=== PATIENT | female | born 1960 | race Caucasian/White ===

== ENCOUNTER → 2019-10-07 10:41 | Outpatient (BNVA) | payer MEDICARE, MEDICAID, SELFPAY | PROVIDERS: Family Provider Family Medicine; PCP Family Medicine; Visit Provider Family Medicine | DX: K21.9 Gastro-esophageal reflux disease without esophagitis (principal); L01.00 Impetigo, unspecified; L40.9 Psoriasis, unspecified; Z79.899 Other long term (current) drug therapy | CPT/HCPCS: 80053; 85025 ==

== ENCOUNTER → 2020-06-08 12:33 | Outpatient (BNVA) | payer MEDICARE, MEDICAID, SELFPAY | PROVIDERS: Family Provider Family Medicine; PCP Family Medicine; Visit Provider Nurse Practitioner Family | DX: J02.9 Acute pharyngitis, unspecified (principal); J98.8 Other specified respiratory disorders; B97.89 Other viral agents as the cause of diseases classified elsewhere; H65.193 Other acute nonsuppurative otitis media, bilateral; Z68.35 Body mass index [BMI] 35.0-35.9, adult; F17.210 Nicotine dependence, cigarettes, uncomplicated | CPT/HCPCS: 87071; 87880 ==

== ENCOUNTER → 2020-11-06 09:48 | Outpatient (BNVA) | payer MEDICARE, MEDICAID, SELFPAY | PROVIDERS: Family Provider Family Medicine; PCP Family Medicine; Visit Provider Family Medicine | DX: S76.912A Strain of unspecified muscles, fascia and tendons at thigh level, left thigh, initial encounter (principal); L40.9 Psoriasis, unspecified; X58.XXXA Exposure to other specified factors, initial encounter | CPT/HCPCS: 80053; 85025 ==

== ENCOUNTER → 2021-09-26 14:31 | Outpatient (BNVA) | payer MEDICARE, MEDICAID, SELFPAY | PROVIDERS: Family Provider Family Medicine; PCP Family Medicine; Visit Provider Emergency Medicine | DX: S80.01XA Contusion of right knee, initial encounter (principal); M25.569 Pain in unspecified knee; L03.115 Cellulitis of right lower limb; X58.XXXA Exposure to other specified factors, initial encounter | CPT/HCPCS: 73562 ==

== ENCOUNTER 2022-04-29 15:19 | Outpatient (CLI) | payer MEDICARE, MEDICAID, SELFPAY ==
--- NOTE | 2022-04-29 15:57 | XR_ITS ---
WS: [id number] Exam: XR chest 2V insp/exp [id number] Date/Time of Exam: 04/29/2022 3:57 PM Reason For Exam: worsening sob Comparison 09/06/2015. There is been significant interval cardiac enlargement since prior study. There is pulmonary vascular congestion suggesting CHF. There are diffuse groundglass infiltrates in the mid and lower lung zones . XR/XR chest 2V insp/exp [id number] IMPRESSION: 1. Significant interval cardiac enlargement since prior study. Pulmonary vascul ar congestion suggesting CHF. 2. Diffuse groundglass infiltrates noted bilaterally. Superimposed pneumonia no t completely excluded.
== END 2022-04-29 15:20 | disposition home or self-care (01) ==
PROVIDERS: PCP Family Medicine; Visit Provider Family Medicine
DX: J44.9 Chronic obstructive pulmonary disease, unspecified (principal); J11.1 Influenza due to unidentified influenza virus with other respiratory manifestations; R68.89 Other general symptoms and signs; I51.7 Cardiomegaly
CPT/HCPCS: 71046; 87400; 87426

== ENCOUNTER → 2022-05-20 09:52 | Outpatient (BNVA) | payer MEDICARE, MEDICAID, SELFPAY | PROVIDERS: PCP Family Medicine; Visit Provider Family Medicine | DX: F32.9 Major depressive disorder, single episode, unspecified (principal); E03.9 Hypothyroidism, unspecified; I87.2 Venous insufficiency (chronic) (peripheral); J44.9 Chronic obstructive pulmonary disease, unspecified | CPT/HCPCS: 80053; 84443; 85025 ==

== ENCOUNTER → 2022-05-21 12:01 | Outpatient (BNVA) | payer MEDICARE, MEDICAID, SELFPAY | PROVIDERS: PCP Family Medicine; Visit Provider Family Medicine | DX: R73.9 Hyperglycemia, unspecified (principal) | CPT/HCPCS: 83036 ==

== ENCOUNTER → 2022-07-30 14:21 | Outpatient (BNVA) | payer MEDICARE, MEDICAID, SELFPAY | PROVIDERS: PCP Family Medicine; Visit Provider Dermatology | DX: L23.9 Allergic contact dermatitis, unspecified cause (principal); L40.0 Psoriasis vulgaris | CPT/HCPCS: 99204 ==

== ENCOUNTER 2022-07-30 15:41 | Outpatient (CLI) | payer MEDICARE, MEDICAID, SELFPAY ==
[2022-07-30 17:08] LABS: Alanine Aminotransferase 28 U/L (0-33); Albumin Level 4.2 g/dL (3.5-5.2); Alkaline Phosphatase 159 U/L (35-105); Anion Gap 16.3 (5-19); Aspartate Amino Transferase 29 U/L (0-32); Blood Urea Nitrogen 28 mg/dL (8-23); Calcium 9.2 mg/dL (8.5-10.5); Carbon Dioxide 31 mmol/L (22-29); Chloride 91 mmol/L (98-107); Globulin 2.7 g/dL (1.3-4.6); Glucose 127 mg/dL (65-115); Osmolality Calculated 289 mOsm/kg (285-295); Sodium 136 mmol/L (136-145); Total Bilirubin 0.3 mg/dL (0.15-1.2); Total Protein 6.9 g/dL (6.6-8.7)
[2022-07-30 17:19] LABS: Hepatitis A Antibody IgM Non-Reactive (Nonreactive); Hepatitis B Core IgM Non-Reactive (Nonreactive); Hepatitis B Surface Antigen Non-Reactive (Nonreactive); Hepatitis C Virus Antibody Non-Reactive (Nonreactive)
[2022-07-30 21:21] LABS: HIV 1 & 2 Antibody Non-Reactive (Non-Reactiv); HIV 1 & 2 Antigen Non-Reactive (Non-Reactiv)
[2022-07-31 11:38] LABS: Potassium 2.3 mmol/L (3.5-5.1)
[2022-08-01 14:41] LABS: Quantiferon Mitogen 9.54 IU/mL; Quantiferon Nil 0.02 IU/mL; Quantiferon Plus TB1 0.02 IU/mL; Quantiferon Plus TB2 0.01 IU/mL; Quantiferon TB Gold NEGATIVE (NEGATIVE)
== END 2022-07-30 15:42 | disposition home or self-care (01) ==
LOC: LAB 15:46
PROVIDERS: PCP Family Medicine; Visit Provider Dermatology
DX: L40.0 Psoriasis vulgaris (principal)
CPT/HCPCS: 36415; 80053; 80074; 86480; 87806

== ENCOUNTER → 2022-08-06 13:50 | Outpatient (BNVA) | payer MEDICARE, MEDICAID, SELFPAY | PROVIDERS: PCP Family Medicine; Visit Provider Dermatology | DX: L40.0 Psoriasis vulgaris (principal); L24.9 Irritant contact dermatitis, unspecified cause | CPT/HCPCS: 99214 ==

== ENCOUNTER → 2022-08-15 15:56 | Outpatient (BNVA) | payer MEDICARE, MEDICAID, SELFPAY | PROVIDERS: PCP Family Medicine; Visit Provider Family Medicine | DX: E87.6 Hypokalemia (principal) | CPT/HCPCS: 80053 ==

== ENCOUNTER → 2022-08-20 15:06 | Outpatient (BNVA) | payer MEDICARE, MEDICAID, SELFPAY | PROVIDERS: PCP Family Medicine; Visit Provider Dermatology | DX: L40.0 Psoriasis vulgaris (principal); L23.89 Allergic contact dermatitis due to other agents | CPT/HCPCS: 99214 ==

== ENCOUNTER → 2023-02-20 10:31 | Outpatient (BNVA) | payer MEDICARE, MEDICAID, SELFPAY | PROVIDERS: PCP Family Medicine; Visit Provider Family Medicine | DX: J44.9 Chronic obstructive pulmonary disease, unspecified (principal); I87.2 Venous insufficiency (chronic) (peripheral); I50.810 Right heart failure, unspecified | CPT/HCPCS: 80053; 85025 ==

== ENCOUNTER → 2023-03-27 09:55 | Outpatient (BNVA) | payer MEDICARE, MEDICAID, SELFPAY | PROVIDERS: PCP Family Medicine; Visit Provider Nurse Practitioner Family | DX: L40.0 Psoriasis vulgaris (principal); L59.0 Erythema ab igne [dermatitis ab igne]; L29.8 Other pruritus | CPT/HCPCS: 99214 ==

== ENCOUNTER → 2023-07-29 12:39 | Outpatient (BNVA) | payer MEDICARE, MEDICAID, SELFPAY | PROVIDERS: PCP Family Medicine; Visit Provider Family Medicine | DX: J41.0 Simple chronic bronchitis (principal); J37.0 Chronic laryngitis | CPT/HCPCS: 80053; 85025 ==

== ENCOUNTER 2023-11-27 15:08 | Outpatient (CLI) | payer MEDICARE, MEDICAID, SELFPAY ==
[2023-11-27 16:37] LABS: Hepatitis A Antibody IgM Non-Reactive (Nonreactive); Hepatitis B Core AB, Total Non-Reactive (Nonreactive); Hepatitis B Surface AB < 3.5 (11.5-1000); Hepatitis B Surface Antigen Non-Reactive (Nonreactive); Hepatitis C Virus Antibody Non-Reactive (Nonreactive)
== END 2023-11-27 15:09 | disposition home or self-care (01) ==
LOC: RAD 15:11
PROVIDERS: PCP Family Medicine; Visit Provider Dermatology
DX: Z79.899 Other long term (current) drug therapy (principal); L40.0 Psoriasis vulgaris
CPT/HCPCS: 36415; 86480; 86705; 86706; 86709; 86803; 87340

== ENCOUNTER 2024-02-23 12:03 | Outpatient (CLI) | payer MEDICARE, MEDICAID, SELFPAY ==
--- NOTE | 2024-02-23 12:06 | XR_ITS ---
WS: [id number] Exam: XR chest 2V* [id number] Date/Time of Exam: 02/23/2024 12:26 PM Reason For Exam: continued dyspnea 4 weeks Comparison 04/29/2022. Slight cardiac enlargement with increased pulmonary vascularity. No infiltrates or pleural effusions. The mediastinum and bony thorax are unremarkable. XR/XR chest 2V* [id number] IMPRESSION: 1. Slight cardiac enlargement with increased pulmonary vascularity. No acute pr ocess noted.
== END 2024-02-23 12:04 | disposition home or self-care (01) ==
LOC: RAD 12:05
PROVIDERS: PCP Family Medicine; Visit Provider Family Medicine
DX: J41.0 Simple chronic bronchitis (principal); I50.810 Right heart failure, unspecified
CPT/HCPCS: 71046; 80048; 83880; 85025

== ENCOUNTER 2024-03-03 12:45 | Outpatient (CLI) | payer MEDICARE, MEDICAID, SELFPAY ==
--- NOTE | 2024-03-03 12:45 | USCV_ITS ---
Ana Alonso Age: 63 Gender: F : 1960 Exam Date: 03/03/2024 12:59 Ordering Phys: Justin Fajardo MD Technologist: Exam Location: [facility] [place] Indication: cp sob BP: 120 / 70 HR: 84 Rhythm: Sinus Technical Quality: Adequate MEASUREMENTS (Male / Female) Normal Values 2D ECHO LV Diastolic Diameter PLAX 3.9 cm 4.2 - 5.9 / 3.9 - 5.3 cm IVS Diastolic Thickness 1.3 cm 0.6 - 1.0 / 0.6 - 0.9 cm IVS Systolic Thickness 1.9 cm LVPW Diastolic Thickness 1.5 cm 0.6 - 1.0 / 0.6 - 0.9 cm LVPW Systolic Thickness 1.8 cm LVOT Diameter 2.0 cm LV Ejection Fraction 2D Teich 67.7 % LV Ejection Fraction MOD 4C 51.6 % LV Ejection Fraction MOD 2C 61.2 % LV Ejection Fraction 2C AL 63.4 % LA Diameter 4.2 cm RA Systolic Volume 4C AL 50.6 ml RA Systolic Volume 4C MOD 47.7 ml LA Sys Volume AL 74.2 cm cubed LA Sys Volume Index AL 34.9 cm cubed/m squared Aorta at Sinotubular Diameter 2.8 cm IVC Diameter 1.8 cm M-MODE LA Ao Ratio MM 1.2 AV Cusp Separation MM 2.0 cm DOPPLER AV Peak Velocity 195.0 cm/s LVOT Peak Velocity 98.0 cm/s AV Area Cont Eq vti 1.7 cm squared AV Area Cont Eq pk 1.6 cm squared MV Peak Velocity 196.0 cm/s MV Area PHT 2.3 cm squared Mitral E to A Ratio 0.9 TR Peak Velocity 177.0 cm/s TR Peak Gradient 12.5 mmHg TV Peak E Velocity 198.0 cm/s PV Peak Velocity 127.0 cm/s FINDINGS Left Ventricle Normal LV size with diminished ejection fraction of 45 to 50%, visual. Mild concentric left ventricular hypertrophy. Diffuse hypokinesia of the left ventricle because of the frequent PVC, the ejection fraction estimation could be misleading.Grade I/IV diastolic dysfunction (abnormal relaxation filling pattern), normal to mildly elevated filling pressures. Right Ventricle The right ventricle is normal in size and function. Right Atrium The right atrium is normal in size. Left Atrium Mildly increased left atrial size. Mitral Valve Mild-moderate mitral valve regurgitation. Aortic Valve Thickened aortic valve. Tricuspid Valve Trace tricuspid valve regurgitation. Pulmonic Valve Pulmonic valve sclerosis. Pericardium Normal pericardium without effusion. Aorta Normal aortic annulus size. IVC Normal inferior vena cava. CONCLUSIONS Normal LV size with diminished ejection fraction of 45 to 50%, visual. Mild concentric left ventricular hypertrophy. Diffuse hypokinesia of the left ventricle. Because of the frequent PVC, the ejection fraction estimation could be misleading. Grade I/IV diastolic dysfunction (abnormal relaxation filling pattern), normal to mildly elevated filling pressures. Mildly increased left atrial size. Mild-moderate mitral valve regurgitation. Thickened aortic valve. Trace tricuspid valve regurgitation. There is no pericardial effusion. There are no intracardiac masses. No similar previous studies are available for comparison Dr Alecia Hurtado MD [facility] (Electronically Signed) Final Date: 04 March 2024 08:48 S
== END 2024-03-03 12:46 | disposition home or self-care (01) ==
PROVIDERS: PCP Family Medicine; Visit Provider Family Medicine
DX: I50.1 Left ventricular failure, unspecified (principal); I50.30 Unspecified diastolic (congestive) heart failure; I34.0 Nonrheumatic mitral (valve) insufficiency; I37.0 Nonrheumatic pulmonary valve stenosis; I35.0 Nonrheumatic aortic (valve) stenosis; I50.813 Acute on chronic right heart failure
CPT/HCPCS: 93306

== ENCOUNTER 2024-03-12 21:32 | Inpatient (IN) | payer MEDICARE, MEDICAID, SELFPAY ==
--- NOTE | 2024-03-12 21:34 | ECG_ITS ---
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: : 1960 Requested By: Lissa Laboy Order Number: [id number] Yasmin MD: NAHUN HAWK Measurements Intervals [place] Rate: 185 P: 0 IA: 0 QRS: -48 QRSD: 127 T: 115 QT: 203 QTc: 357 Interpretive Statements ATRIAL FIBRILLATION WITH RAPID VENTRICULAR RESPONSE WITH ABERRANT CONDUCTION OR VENTRICULAR PREMATURE COMPLEXES LEFT ANTERIOR FASCICULAR BLOCK [QRS AXIS <= -45, QR IN I, RS IN II] POSSIBLE LEFT VENTRICULAR HYPERTROPHY [VOLTAGE CRITERIA PLUS LAE OR QRS WIDENING] NONSPECIFIC ST & T-WAVE ABNORMALITY CRITICAL TEST RESULT Compared to ECG 08/26/2015 06:21:13 Ventricular premature complex(es) now present Aberrant conduction of supraventricular beat(s) now present Left anterior fascicular block now present Electronically Signed On 03-15-2024 16:13:10 FERRYBOAT CAPTAIN by NAHUN HAWK [email or web address]
[2024-03-12 21:41] VITALS: PULSE 185; RESP 24; TEMP 36.6; O2SAT 93; BMI 36.6
--- NOTE | 2024-03-12 21:58 | XRR_ITS ---
PROCEDURE INFORMATION: Exam: XR Chest Exam date and time: 03/12/2024 10:08 PM Age: 63 years old Clinical indication: Chest pressure; Patient HX: Chest pain; SOB; Dizzy; Hypotension; Low o2 sat TECHNIQUE: Imaging protocol: Radiologic exam of the chest. Views: 1 view. COMPARISON: CR XR chest 2V* [id number] 02/23/2024 12:30 PM FINDINGS: Lungs: Unremarkable. No consolidation. Pleural spaces: Unremarkable. No pleural effusion. No pneumothorax. Heart/Mediastinum: Unremarkable. No cardiomegaly. Bones/joints: Unremarkable. XR/XR chest 1V portable [id number] IMPRESSION: No acute findings.
[2024-03-12] MEDS: sodium chloride 0.9% 1,000 ML 999 ML IV (22:05)
[2024-03-12] MEDS: dilTIAZem 5 mg/mL SDV 5 mL 15 MG IVP (22:06)
[2024-03-12] MEDS: dilTIAZem 100 MG in sodium chloride 0.9% (add-van) 100 ML IV (22:18)
[2024-03-12 22:26] LABS: Basophils # 0.1 10^3/uL (0.0-0.1); Basophils % 0.8 %; Eosinophils # 0.1 10^3/uL (0.0-0.8); Eosinophils % 0.6 %; Hematocrit 44.6 % (36-47); Lymphocytes # 3.4 10^3/uL (0.8-4.8); Lymphocytes % 33.6 %; Mean Corpuscular Hemoglobin 31.1 pg (27-33); Mean Corpuscular Volume 94.5 fl (85-98); Mean Platelet Volume 10.7 fL (7.4-10.4); Monocytes # 0.6 10^3/uL (0.2-0.9); Monocytes % 6.1 %; Neutrophils % 58.6 %; Nucleated Red Blood Cells % 0 %; Platelet Count 266 10^3/cmm (157-399); Red Blood Count 4.72 10^6/uL (3.85-5.65); Red Cell Distribution Width 14.6 % (12.1-15.1); White Blood Count 10.06 10^3/uL (3.29-11.43)
[2024-03-12 22:46] VITALS: BP 117/92; PULSE 135; RESP 18; O2SAT 94
[2024-03-12 22:53] LABS: INR 1.18 (0.8-1.2)
[2024-03-12 22:55] LABS: Partial Thromboplastin Time 28.9 SECONDS (23.9-36.7)
[2024-03-12 23:00] VITALS: BP 105/75; PULSE 110; O2SAT 95
[2024-03-12 23:02] LABS: Troponin(5th) Baseline 163 ng/L (0-10)
--- NOTE | 2024-03-12 23:04 | ED_ITS ---
HPI - Chest Pain 2 General: Chief Complaint: Chest Pain Stated Complaint: chest pain, SOB, dizzy Time Seen by Provider: 03/12/24 21:51 History of Present Illness: 63-year-old female with no prior history of heart disease. She has been told that she had a irregular heartbeat by her primary care physician, and was referred to cardiology. This has not been evaluated. She presents with chest pain, and shortness of breath. She feels her heart beating quite quickly. This has been going on since at least 5 PM this evening. She notes that she was not doing anything strenuous when it started. She has not been ill otherwise lately. Related Data Previous Rx's Medication Instructions Recorded fluticasone propionate 50 1 spray intranasal DAILY #16 grams 06/08/20 mcg/actuation nasal spray,suspension (Flonase Allergy Relief) triamcinolone acetonide 0.1 % See Rx Instructions .Route 02/09/21 topical cream .COMPLEX #90 grams cyclobenzaprine 10 mg tablet See Rx Instructions .Route 11/28/21 .COMPLEX #75 tabs promethazine 25 mg tablet 25 mg PO TID PRN nausea and 12/12/21 vomiting #30 tabs folic acid 1 mg tablet See Rx Instructions .Route 04/23/22 .COMPLEX #90 tabs Nebulizer tubing and supplies #1 ea 04/30/22 omeprazole 40 mg capsule,delayed See Rx Instructions .Route 04/08/23 release .COMPLEX #90 caps diclofenac sodium 1 % topical gel 2 g topical QID #100 grams 07/29/23 (Voltaren Arthritis Pain) potassium chloride 10 mEq See Rx Instructions .Route 12/03/23 tablet,extended release .COMPLEX #180 tabs prednisone 20 mg tablet 20 mg PO .COMPLEX #20 tabs 02/02/24 albuterol sulfate 2.5 mg/3 mL See Rx Instructions .Route 02/06/24 (0.083 %) solution for nebulization .COMPLEX #540 mL promethazine 6.25 mg-codeine 10 5 ml PO Q6H PRN cough #240 mL 02/06/24 mg/5 mL syrup clonazepam 1 mg tablet 1 mg PO TID PRN anxiety 30 days 02/09/24 #75 tabs albuterol sulfate 90 mcg/actuation See Rx Instructions .Route 02/20/24 aerosol inhaler .COMPLEX #8.5 grams metolazone 5 mg tablet 5 mg PO DAILY #14 tabs 02/23/24 furosemide 40 mg tablet See Rx Instructions .Route 03/03/24 .COMPLEX #90 tabs Allergies Allergy/AdvReac Type Severity Reaction Status Date / Time No Known Allergies Allergy Verified 03/12/24 22:13 PFSH ED 2 PFSH: Medical History Anxiety Chronic laryngitis COPD (chronic obstructive pulmonary disease) Venous (peripheral) insufficiency Depression Psoriasis GERD (gastroesophageal reflux disease) Surgical History History of total hysterectomy History of cholecystectomy Social History Smoking and tobacco/nicotine status: never used tobacco/nicotine Alcohol intake: never Substance/Drug Use: current Physical Exam 2 Const: GENERAL APPEARANCE: cooperative, in distress and ill appearing; not frail appearing HENMT: COMMON NORMALS: normocephalic, atraumatic and Normal external nose present HEAD & SCALP: normocephalic and atraumatic FACE & SINUS: normal facial exam and face symmetric NOSE: Normal external nose present Eye: COMMON NORMALS: Equal, round and reactive pupils present and EOMs intact bilaterally PUPIL: Yes Equal, round and reactive pupils present Neck/C-Spine: GENERAL: Yes trachea midline Chest: CHEST: Yes Symmetrical chest wall rise Resp: COMMON NORMALS: clear to auscultation bilaterally EFFORT & INSPECTION: Yes tachypneic AUSCULTATION: clear to auscultation bilaterally and diminished lung sounds Cardio: RATE: tachycardic RHYTHM: abnormal rhythm irregularly irregular GI: COMMON NORMALS: Normal to inspection, nondistended, normoactive bowel sounds present Extremity: COMMON NORMALS: no pedal edema Neuro: JES[place] COMA SCALE: document GCS findings [place] coma scale eye opening: Spontaneous [place] coma scale verbal response: Orientated [place] coma scale motor response: Obey commands [place] coma scale total score: 15 S ENSORY EXAM: Yes extremities (intact) Psych: COMMON NORMALS: speech normal SPEECH: Yes normal speech Course 2 Vital Signs: Vital signs: Vital Signs Temperature 97.9 F 03/12/24 21:41 Pulse Rate 126 H 03/12/24 23:12 Respiratory Rate 20 H 03/12/24 23:12 Blood Pressure 105/75 03/12/24 23:12 Pulse Oximetry 90 03/12/24 23:12 Oxygen Delivery Me thod Nasal Cannula 03/12/24 22:46 [facility] - Chest Pain Medical Decision Making Patient was found to have a heart rate of 185 in triage. She was experiencing significant chest pain. She was brought back, 15 mg diltiazem bolus was ordered, reducing her rate significantly. It was atrial fibrillation with rapid ventricular response. Drip was started, with resolution of her significant tachycardia. Heart rate is now 110. Her chest pain is gone. She is resting comfortably. Blood pressure stable at 117/92. She is afebrile. Her CBC is normal. Chest x- ray is nonacute. Her initial troponin is 163. I am sure at least some of this is rate dependent. Potassium is 3.1 and is repleted. Creatinine is 1.5 chest x-ray is read as nonacute, although there does appear to be some vascular congestion. Her BNP is significantly elevated at 13,000. Spoke with hospitalist. Should go to the [facility]. Currently she is on 10 of Cardizem drip, with a heart rate of 100-110. Lab Data 03/12/24 22:00 03/12/24 22:38 Radiology Impressions Chest X-Ray 03/12/24 21:58 IMPRESSION: No acute findings. Laboratory Results WBC 10.06 10^3/uL (3.29-11.43) 03/12/24 22:00 RBC 4.72 10^6/uL (3.85-5.65) 03/12/24 22:00 Hgb 14.70 g/dL (11.27-16.99) 03/12/24 22:00 Hct 44.6 % (36-47) 03/12/24 22:00 MCV 94.5 fl (85-98) 03/12/24 22:00 MCH 31.1 pg (27-33) 03/12/24 22:00 MCHC 33.0 g/dL (30-55) 03/12/24 22:00 RDW 14.6 % (12.1-15.1) 03/12/24 22:00 Plt Count 266 10^3/cmm (157-399) 03/12/24 22:00 MPV 10.7 fL (7.4-10.4) H 03/12/24 22:00 Neut % (Auto) 58.6 % 03/12/24 22:00 Lymph % (Auto) 33.6 % 03/12/24 22:00 [place] % (Auto) 6.1 % 03/12/24 22:00 Eos % (Auto) 0.6 % 03/12/24 22:00 Baso % (Auto) 0.8 % 03/12/24 22:00 Neut # (Auto) 5.90 10^3/uL (1.8-7.7) 03/12/24 22:00 Lymph # (Auto) 3.4 10^3/uL (0.8-4.8) 03/12/24 22:00 [place] # (Auto) 0.6 10^3/uL (0.2-0.9) 03/12/24 22:00 Eos # (Auto) 0.1 10^3/uL (0.0-0.8) 03/12/24 22:00 Baso # (Auto) 0.1 10^3/uL (0.0-0.1) 03/12/24 22:00 Nucleated RBC % (auto) 0 % 03/12/24 22:00 Nucleated RBCs # 0.0 /100WBC 03/12/24 22:00 PT 15.40 SECONDS (12.1-14.9) H 03/12/24 22:38 INR 1.18 (0.8-1.2) 03/12/24 22:38 APTT 28.9 SECONDS (23.9-36.7) 03/12/24 22:38 D-Dimer 0.76 ug/mLFEU (0-0.59) H 03/12/24 22:38 Sodium 141 mmol/L (136-145) 03/12/24 22:38 Potassium 3.1 mmol/L (3.5-5.1) L 03/12/24 22:38 Chloride 96 mmol/L (98-107) L 03/12/24 22:38 Carbon Dioxide 35 mmol/L (22-29) H 03/12/24 22:38 Anion Gap 13.1 (5-19) 03/12/24 22:38 BUN 24 mg/dL (8-23) H 03/12/24 22:38 Creatinine 1.5 mg/dL (0.5-0.9) H 03/12/24 22:38 GFR Calculation 34.9 mL/min (90-130) L 03/12/24 22:38 Glucose 113 mg/dL (65-115) 03/12/24 22:38 Calculated Osmolality 297 mOsm/kg (285-295) H 03/12/24 22:38 Calcium 9.5 mg/dL (8.5-10.5) 03/12/24 22:38 Magnesium 1.9 mg/dL (1.7-2.3) 03/12/24 22:38 Total Bilirubin 0.5 mg/dL (0.15-1.2) 03/12/24 22:38 AST 33 U/L (0-32) H 03/12/24 22:38 ALT 18 U/L (0-33) 03/12/24 22:38 Alkaline Phosphatase 119 U/L (35-105) H 03/12/24 22:38 Creatine Kinase 105 U/L (26-192) 03/12/24 22:38 Troponin T Baseline 163 ng/L (0-10) H* 03/12/24 22:38 NT-Pro-B Natriuret Pep 13684 pg/mL (0-125) H 03/12/24 22:38 Total Protein 6.5 g/dL (6.6-8.7) L 03/12/24 22:38 Albumin 4.0 g/dL (3.5-5.2) 03/12/24 22:38 Globulin 2.5 g/dL (1.3-4.6) 03/12/24 22:38 TSH 1.81 uIU/mL (0.27-4.20) 03/12/24 22:38 All radiology interpretation(s) finalized by discharge Critical Care Time 2 Critical Care Time: Critical Care Time: Yes Total Critical Care Time: 35 Attestation: This case had a high probability of a clinically significant, sudden, or life threatening deterioration of this patient's condition which required my full and direct attention, intervention and personal management. Time is independent of any procedures performed. Discharge Plan Discharge Patient Disposition: Admitted As Inpatient Clinical Impression: Chest pain, Atrial fibrillation with rapid ventricular response Condition: Serious Coding Level of Care Code ED Book Sewer for Fatimah Devine
[2024-03-12 23:12] VITALS: BP 105/75; PULSE 126; RESP 20; O2SAT 90
[2024-03-12 23:16] LABS: Alanine Aminotransferase 18 U/L (0-33); Alkaline Phosphatase 119 U/L (35-105); Anion Gap 13.1 (5-19); Aspartate Amino Transferase 33 U/L (0-32); Blood Urea Nitrogen 24 mg/dL (8-23); Calcium 9.5 mg/dL (8.5-10.5); Carbon Dioxide 35 mmol/L (22-29); Chloride 96 mmol/L (98-107); Creatine Phosphokinase 105 U/L (26-192); Globulin 2.5 g/dL (1.3-4.6); Glomerular Filtration Rate 34.9 mL/min (90-130); Glucose 113 mg/dL (65-115); Magnesium 1.9 mg/dL (1.7-2.3); NT Pro B Type Natriuretic Pept 13461 pg/mL (0-125); Osmolality Calculated 297 mOsm/kg (285-295); Potassium 3.1 mmol/L (3.5-5.1); Sodium 141 mmol/L (136-145); Thyroid Stimulating Hormone 1.81 uIU/mL (0.27-4.20); Total Bilirubin 0.5 mg/dL (0.15-1.2); Total Protein 6.5 g/dL (6.6-8.7)
--- NOTE | 2024-03-12 23:31 | P.HP_ITS ---
Providers/Chief Complaint 2 Primary Care Provider: Justin Fajardo MD Chief Complaint: chest pain, SOB, dizzy History of Present Illness Ana Alonso is a 63 year old female with past medical history of CHF, hypertension, presented to hospital with chief complaint of chest pain. Patient does not have any history of coronary disease or [place]. Stating that her pain started around 5 PM when she was asleep, she described her pain as pressure-like sensation nonradiating, not associated with nausea vomiting but associated shortness of breath. It lasted until she came in the ER and received medications. She was diagnosed with A-fib RVR heart rate 185 she was put on Cardizem drip which improved her heart rate and chest pain resolved she was diagnosed with non-STEMI with significantly high troponin. At the time of my evaluation she is chest pain-free resting comfortably laying supine. She also has ERICK with high BNP Review of Systems 2 Const: Denies: fever(s) Eyes: Denies: change in vision ENMT: Denies: throat pain Card: Reports: chest pain Resp: Reports: dyspnea GI: Reports: nausea : Denies: flank pain Medications/Allergies Home Medications Medication Instructions Recorded Confirmed Last Taken Type fluticasone propionate 50 1 spray intranasal DAILY #16 grams 06/08/20 02/23/24 Unknown Rx mcg/actuation nasal spray,suspension (Flonase Allergy Relief) triamcinolone acetonide 0.1 % See Rx Instructions .Route 02/09/21 02/23/24 Unknown Rx topical cream .COMPLEX #90 grams cyclobenzaprine 10 mg tablet See Rx Instructions .Route 11/28/21 02/23/24 Unknown Rx .COMPLEX #75 tabs promethazine 25 mg tablet 25 mg PO TID PRN nausea and 12/12/21 02/23/24 Unknown Rx vomiting #30 tabs folic acid 1 mg tablet See Rx Instructions .Route 04/23/22 02/23/24 Unknown Rx .COMPLEX #90 tabs Nebulizer tubing and supplies #1 ea 04/30/22 02/23/24 Unknown Rx omeprazole 40 mg capsule,delayed See Rx Instructions .Route 04/08/23 02/23/24 Unknown Rx release .COMPLEX #90 caps diclofenac sodium 1 % topical gel 2 g topical QID #100 grams 07/29/23 02/23/24 Unknown Rx (Voltaren Arthritis Pain) potassium chloride 10 mEq See Rx Instructions .Route 12/03/23 02/23/24 Unknown Rx tablet,extended release .COMPLEX #180 tabs prednisone 20 mg tablet 20 mg PO .COMPLEX #20 tabs 02/02/24 02/23/24 Unknown Rx albuterol sulfate 2.5 mg/3 mL See Rx Instructions .Route 02/06/24 02/23/24 Unknown Rx (0.083 %) solution for nebulization .COMPLEX #540 mL promethazine 6.25 mg-codeine 10 5 ml PO Q6H PRN cough #240 mL 02/06/24 02/23/24 Unknown Rx mg/5 mL syrup clonazepam 1 mg tablet 1 mg PO TID PRN anxiety 30 days 02/09/24 02/23/24 Unknown Rx #75 tabs albuterol sulfate 90 mcg/actuation See Rx Instructions .Route 02/20/24 02/23/24 Unknown Rx aerosol inhaler .COMPLEX #8.5 grams metolazone 5 mg tablet 5 mg PO DAILY #14 tabs 02/23/24 02/23/24 Unknown Rx furosemide 40 mg tablet See Rx Instructions .Route 03/03/24 Unknown Rx .COMPLEX #90 tabs Allergies Allergy/AdvReac Type Severity Reaction Status Date / Time No Known Allergies Allergy Verified 03/12/24 22:13 PFSH Acute 2 PFSH: Medical History Anxiety Chronic laryngitis COPD (chronic obstructive pulmonary disease) Venous (peripheral) insufficiency Depression Psoriasis GERD (gastroesophageal reflux disease) Surgical History History of total hysterectomy History of cholecystectomy Social History Smoking and tobacco/nicotine status: never used tobacco/nicotine Alcohol intake: never Substance/Drug Use: current Vitals/I&O/Wt Last Vital Signs Temp 97.9 F 03/12/24 21:41 Pulse 126 H 03/12/24 23:12 Resp 20 H 03/12/24 23:12 BP 105/75 03/12/24 23:12 Pulse Ox 90 03/12/24 23:12 O2 Del Method Nasal Cannula 03/12/24 22:46 03/12/24 03/12/2403/13/24 14:59 22:59 06:59 Intake Total 1000 / 1000 Balance 1000 / 1000 Weight last 48 hrs Weight 99.79 kg Physical Exam 2 Narrative: Mild sign of fluid overload, morbidly obese female Chest pain-free A-fib RVR heart rate around 104 -110 Blood pressure stable No active chest pain Variable S1-S2 Abdomen nontender distended Lower extremity are cold on palpation, No leg pain at rest Pleasant and cooperative complaining of cold room No active focal deficit Doing well on room air Data 03/12/24 22:00 03/12/24 22:38 A&P Assessment and plan (1) Anxiety: (2) Right-sided heart failure syndrome: Qualifiers: Heart failure chronicity: acute on chronic Qualified Code(s): I50.813 - Acute on chronic right heart failure (3) Chest pain: (4) Atrial fibrillation with rapid ventricular response: (5) Venous (peripheral) insufficiency: (6) GERD (gastroesophageal reflux disease): Qualifiers: Esophagitis presence: without esophagitis Qualified Code(s): K21.9 - Gastro-esophageal reflux disease without esophagitis (7) COPD (chronic obstructive pulmonary disease): Qualifiers: COPD type: chronic bronchitis Chronic bronchitis type: simple Qualified Code(s): J41.0 - Simple chronic bronchitis (8) Psoriasis: (9) Non-STEMI (non-ST elevated myocardial infarction): Plan New onset A-fib with RVR Anjel Vascor 3 Start patient on therapeutic Lovenox once daily regimen May be able to go home on Eliquis Requested echo keep magnesium above 2 potassium above 4 Hypokalemia: Replenish Mild hypomagnesemia: Replenished p.o. regimen Unstable angina Non-STEMI Start patient on therapeutic Lovenox once daily regimen loaded with aspirin and Plavix Chest pain resolved with improvement of heart rate Second troponin pending No active chest pain at the time of my evaluation Tachyarrhythmia related discomfort Please consult cardiology in the morning Echo was done recently which showed 45 to 50% EF grade 1 diastolic function Venous's dermatitis, psoriasis: No significant edema of lower extremity Cardiac diet DVT prophylaxis therapeutic Lovenox Full code Patient does use marijuana Not endorsing to drill use of alcohol or smoking Attestations 2 Medical Necessity Statement*: More than 2 midnights anticipated Diagnoses Anxiety F41.9 Acute on chronic right-sided heart failure I50.813 Heart failure chronicity: acute on chronic Chest pain R07.9 Atrial fibrillation with rapid ventricular response I48.91 Venous (peripheral) insufficiency I87.2 Gastroesophageal reflux disease without esophagitis K21.9 Esophagitis presence: without esophagitis Simple chronic bronchitis J41.0 COPD type: chronic bronchitis Chronic bronchitis type: simple Psoriasis L40.9 Non-STEMI (non-ST elevated myocardial infarction) I21.4
[2024-03-12 23:52] LABS: D Dimer 0.76 ug/mLFEU (0-0.59)
[2024-03-13] VITALS (96 sets, daily range): BP systolic 64–174; BP diastolic 25–139; PULSE 0–166; RESP 12–53; TEMP 36.4–36.6; O2SAT 70–100; BMI 36.5
[2024-03-13] MEDS: ondansetron 2 mg/ML SDV 2 mL 4 MG IVP (00:56)
[2024-03-13] MEDS: potassium chloride oral liq 20 mEq/15 mL UDC 40 MEQ PO (01:01)
[2024-03-13] MEDS: clopidogrel 300 mg Tablet PO (01:05)
[2024-03-13] MEDS: aspirin 325 mg EC Tablet PO (01:05)
[2024-03-13] MEDS: lidocaine 1% 5 ML in potassium chloride premix 100 ML 52.5 ML IV ×2 (01:32→17:23)
--- NOTE | 2024-03-13 03:21 | PC.NURSE ---
patient refusing IV potassium and is very anxious, MD is informed, MD ordered home dose of clonazepam for anxiety. MD is also was informed that the patient became hypotensive got orders to stop cardizem and start amio.
[2024-03-13] MEDS: CLONazepam 1 mg Tablet PO (03:51)
--- NOTE | 2024-03-13 03:58 | ECG_ITS ---
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1960 Requested By: Christoph Gonzáles Order Number: [id number] Reading MD: NAHUN HAWK Measurements Intervals [place] Rate: 144 P: 0 NM: 0 QRS: -49 QRSD: 129 T: 109 QT: 314 QTc: 487 Interpretive Statements ATRIAL FIBRILLATION WITH RAPID VENTRICULAR RESPONSE WITH ABERRANT CONDUCTION OR VENTRICULAR PREMATURE COMPLEXES LEFT ANTERIOR FASCICULAR BLOCK [QRS AXIS <= -45, QR IN I, RS IN II] POSSIBLE LEFT VENTRICULAR HYPERTROPHY [VOLTAGE CRITERIA PLUS LAE OR QRS WIDENING] NONSPECIFIC ST & T-WAVE ABNORMALITY Compared to ECG 03/12/2024 21:38:31 No significant changes Electronically Signed On 03-15-2024 16:17:20 [employer]KER by NAHUN HAWK [email or web address]
[2024-03-13 05:35] LABS: Basophils # 0.1 10^3/uL (0.0-0.1); Basophils % 0.5 %; Eosinophils # 0.1 10^3/uL (0.0-0.8); Eosinophils % 0.7 %; Hematocrit 41.5 % (36-47); Lymphocytes # 3.2 10^3/uL (0.8-4.8); Lymphocytes % 33.6 %; Mean Corpuscular HGB Conc 33.3 g/dL (30-55); Mean Corpuscular Hemoglobin 31.2 pg (27-33); Mean Corpuscular Volume 93.7 fl (85-98); Mean Platelet Volume 10.2 fL (7.4-10.4); Monocytes # 0.6 10^3/uL (0.2-0.9); Monocytes % 6.2 %; Neutrophils # 5.58 10^3/uL (1.8-7.7); Neutrophils % 58.8 %; Nucleated Red Blood Cells % 0 %; Platelet Count 211 10^3/cmm (157-399); Red Blood Count 4.43 10^6/uL (3.85-5.65); Red Cell Distribution Width 14.5 % (12.1-15.1)
[2024-03-13 05:59] LABS: Anion Gap 15.1 (5-19); Blood Urea Nitrogen 24 mg/dL (8-23); C Reactive Protein 13.9 mg/L (0.0-4.9); Calcium 9.3 mg/dL (8.5-10.5); Carbon Dioxide 29 mmol/L (22-29); Chloride 94 mmol/L (98-107); Creatinine Clr Calc Pharmacy 36.4131; Glomerular Filtration Rate 28.2 mL/min (90-130); Glucose 147 mg/dL (65-115); Magnesium 1.9 mg/dL (1.7-2.3); Osmolality Calculated 287 mOsm/kg (285-295); Potassium 3.1 mmol/L (3.5-5.1); Sodium 135 mmol/L (136-145)
[2024-03-13 06:08] LABS: Troponin 5 6HR 194.4 ng/L (0-10); Troponin 5 6HR Delta 31.4 ng/L (0-12)
--- NOTE | 2024-03-13 07:22 | PC.NURSE ---
found patient in floor from chair after hearing a thud, respiratory was first in the room, patient stated she tried to stand up and slid down and hit her bottom, she states she did not hit her head. When founding patient, was sitting in the floor flailing her arms, once getting off the floor and placed on the commode, informed patient about the importance of using her call light would have prevented being on the floor, after patient was done using commode, the patient was placed back in bed with bed alarm on and three rails up, and all needs placed in reach, MD notified of fall and no new orders were received.
[2024-03-13] MEDS: digoxin 250 mcg/ml INJ 2 mL IVP (07:27)
[2024-03-13] MEDS: FUROsemide 10 mg/mL SDV 2mL 20 MG IVP (07:32)
[2024-03-13] MEDS: enoxaparin 100 mg/mL Syringe SUBCUT (07:36)
[2024-03-13] MEDS: potassium chloride ER 20 mEq Tablet 40 MEQ PO (07:36)
--- NOTE | 2024-03-13 07:49 | PC.NURSE ---
Patient's heart rate 145-170s. On amio at 1. She received 250dig... She is cold to touch, mottled all over. Inform
[2024-03-13] MEDS: metoprolol tartrate 1 mg/1 mL SDV 5 mL 5 MG IVP ×2 (08:02→08:55)
--- NOTE | 2024-03-13 08:07 | PC.NURSE ---
Patient heart 140-170s. BP 102/78. Patient appears mottled. C/o not feeling good. Patient currently on amiodarone as documented. Received digoxin 250mcg. Informed Dr Fregoso and received order for Metoprolol 5mg IVP which has been given. MD to see patient. Will continue to monitor.
[2024-03-13 08:16] LABS: Glucose Point of Care 172 mg/dL (70-110)
[2024-03-13 08:44] LABS: Bilirubin Urine Negative (Negative); Blood Urine Negative (Negative); Glucose Urine UA Negative (Normal); Ketones Urine Negative (Negative); Leukocyte Esterase Urine Negative (Negative); Nitrate Urine Negative (Negative); Protein Urine 1+ (Negative); Specific Gravity, Urine 1.017 (1.005-1.030); Urine Appearance Clear (CLEAR); Urine Color Yellow (Yellow)
[2024-03-13 08:51] LABS: Add Urine Microscopic? YES; Amphetamines Screen Urine Positive (Negative); Bacteria Urine 1+ /hpf; Barbiturates Screen Urine Negative (Negative); Benzodiazepines Screen Urine Negative (Negative); Cocaine Screen Urine Negative (Negative); Mucus Urine 1+ /hpf; Opiate Screen Urine Negative (Negative); PCP Screen Urine Negative (Negative); RBC Urine 0-4 /hpf (0-2); THC Screen Urine Positive (Negative); UA Manual Slide Review YES; WBC Urine 0-4 /hpf (0-5)
[2024-03-13] MEDS: magnesium sulfate premix 1 GM/100 ML PIGGYBACK IV (08:56)
--- NOTE | 2024-03-13 09:18 | CTR_ITS ---
PROCEDURE INFORMATION: Exam: CTA Abdomen and Pelvis With Contrast Exam date and time: 03/13/2024 9:49 AM Age: 63 years old Clinical indication: Abdominal pain; Generalized; Additional info: Sev abdo pain TECHNIQUE: Imaging protocol: Computed tomographic angiography of the abdomen and pelvis with contrast. Exam focused on the arteries. 3D rendering (Not supervised by radiologist): MIP and/or 3D reconstructed images were created by the technologist. Radiation optimization: All CT scans at this facility use at least one of these dose optimization techniques: automated exposure control; mA and/or kV adjustment per patient size (includes targeted exams where dose is matched to clinical indication); or iterative reconstruction. Contrast material: OMNI 350; Contrast volume: 100 ml; Contrast route: INTRAVENOUS (IV); COMPARISON: CR XR hip RT 2-3V wo/w pel* [id number] 10/28/2018 12:33 PM RADIATION DOSE METRICS: Total DLP (mGy-cm): 945.59 FINDINGS: Lungs: There is linear atelectasis or scarring involving the right middle lobe and lingula. Heart: The heart is enlarged. There is no evidence of a significant pericardial effusion. Aorta: No aortic aneurysm. No aortic dissection. There are scattered calcified and noncalcified plaque. Celiac trunk and mesenteric arteries: There is mild narrowing involving the origins of the celiac axis and SMA. No high-grade stenosis is identified. Renal arteries: There is mild narrowing involving the origin of a single renal artery on the right without high-grade stenosis. There is more moderate to high-grade narrowing involving the origin of a single renal artery on the left with estimated stenosis of 70%. Right iliac arteries: No occlusion or significant stenosis. Left iliac arteries: No occlusion or significant stenosis. Liver: There is fatty infiltration of the liver. The liver has a slightly nodular contour suspicious for cirrhosis. There is mild periportal edema. Mild inflammatory fat stranding is noted within the hilum of the liver. Etiology is uncertain. No focal liver masses identified on this single phase exam. Gallbladder and biliary ducts: There are surgical clips within the gallbladder fossa. Pancreas: Unremarkable. No mass. No ductal dilation. Spleen: Unremarkable. No splenomegaly. Adrenal glands: Unremarkable. No mass. Kidneys and ureters: There is a benign-appearing renal cyst on the right. There are somewhat heterogeneous enhancement involving the kidneys. This could be related to phase of contrast. Exact etiology is uncertain. Stomach and bowel: Unremarkable. No obstruction. No mucosal thickening. Appendix: No evidence of appendicitis. Intraperitoneal space: There is minimal ascites within the abdomen and pelvis. No free air is identified. Lymph nodes: Unremarkable. No enlarged lymph nodes. Urinary bladder: There is a Yoder catheter within a decompressed urinary bladder. Reproductive: The uterus is not identified. Bones/joints: No acute fracture. Soft tissues: There is a small fat filled periumbilical hernia. CT/CT angio abdomen pelvis [id number] IMPRESSION: 1. Slightly nodular contour to the liver suspicious for cirrhosis. There is mild nonspecific periportal edema. There is also edema /fat stranding within the hilum of the liver of uncertain etiology. 2. Atherosclerosis. Specifics are given above. 3. Small volume ascites.
[2024-03-13] MEDS: iohexol 350 mg/mL 500 mL Btl (per mL) IV (09:57)
--- NOTE | 2024-03-13 10:17 | PC.NURSE ---
recieved from [facility] per bed ct done moaning but not much verbal response mottled generalized all over heart rate remains afib rvr at rate of 120s o[address] . family to bedside at this time
--- NOTE | 2024-03-13 10:47 | USR_ITS ---
PROCEDURE INFORMATION: Exam: US Abdomen, Limited; Right Upper Quadrant Exam date and time: 03/13/2024 1:47 PM Age: 63 years old Clinical indication: Screening exam; Other: Duplex hepatic veins, portal veins, assess for any thromboosis; Prior surgery; Surgery date: 6+ months; Surgery type: Unsure of dates, but patient had gb removed TECHNIQUE: Imaging protocol: Real time ultrasound of the abdomen with image documentation. Limited exam focused on the right upper quadrant. COMPARISON: CT angio abdomen pelvis [id number] 03/13/2024 9:49 AM FINDINGS: Liver: Liver has a subtle lobular contour suggestive of underlying clinically significant fibrosis or cirrhosis. No focal lesion. Gallbladder: The gallbladder is absent. Biliary ducts: Common bile duct is not well seen. Pancreas: Visualized pancreas is unremarkable. Right kidney: Normal. No mass. No hydronephrosis. Portal venous: The hepatic and portal veins are patent with demonstrable blood flow and no appreciable thrombus. Other findings: Technically difficult study due to patient motion. US/US liver [id number] IMPRESSION: 1. Liver has a subtle lobular contour suggestive of underlying clinically significant fibrosis or cirrhosis. No focal lesion. 2. The hepatic and portal veins are patent with demonstrable blood flow and no appreciable thrombus.
--- NOTE | 2024-03-13 10:58 | P.PN_ITS ---
Subjective 2 Subjective: This morning she is uncomfortable, tried but could not have a bowel movement, turning around in bed from [id number], reporting very bothersome abdominal pain. Ill-defined, not in any particular location. No chest pain. Vitals/I&O/Wt Last Vital Signs Temp 97.5 F L 03/13/24 07:32 Pulse 140 H 03/13/24 10:40 Resp 36 H 03/13/24 10:40 BP 110/82 03/13/24 07:32 Pulse Ox 93 03/13/24 10:40 O2 Del Method Nasal Cannula 03/13/24 10:40 O2 Flow Rate 4 03/13/24 10:40 03/12/24 03/13/24 03/13/24 22:59 06:59 14:59 Intake Total 1000 / 1000 177.000 / 1177.000 197.758 / 197.758 Output Total 0 / 0 Balance 1000 / 1000 177.000 / 1177.000 197.758 / 197.758 Weight last 48 hrs Weight 99.564 kg Weight 99.564 kg Weight 99.79 kg Physical Exam 2 Narrative: Accompanied by family. Const: NUTRITIONAL APPEARANCE: obese OTHER: Appears uncomfortable. Neck/C-Spine: COMMON NORMALS: no JVD Resp: COMMON NORMALS: normal respiratory effort and clear to auscultation bilaterally AUSCULTATION: clear to auscultation bilaterally Cardio: COMMON NORMALS: no JVD, regular rhythm, S1 normal heart sound present, S2 normal heart sound present and No murmurs present (Cardio) RHYTHM: regular rhythm HEART SOUNDS: S1 normal heart sound present and S2 normal heart sound present GI: COMMON NORMALS: Normal to inspection, nondistended, normoactive bowel sounds present, Soft to palpation and non-tender PALPATION: Yes Soft to palpation Extremity: COMMON NORMALS: no joint enlargement and no pedal edema OTHER: Cool to touch hands and feet. Neuro: COMMON NORMALS: moves all extremities Skin: COMMON NORMALS: no rashes or lesions noted NARRATIVE SKIN EXAM: Minimally mottled appearance. GENERAL SKIN EXAM: no rashes or lesions noted Urinary Catheter Management: Yoder: Cath Placed During This Visit: yes Urinary Catheter Date of Insertion: 03/13/24 Urinary Catheter Time of Insertion: 08:37 Data 03/13/24 05:27 03/13/24 05:27 A&P Assessment and plan (1) Anxiety: (2) Right-sided heart failure syndrome: Qualifiers: Heart failure chronicity: acute on chronic Qualified Code(s): I50.813 - Acute on chronic right heart failure (3) Chest pain: (4) Atrial fibrillation with rapid ventricular response: (5) Venous (peripheral) insufficiency: (6) GERD (gastroesophageal reflux disease): Qualifiers: Esophagitis presence: without esophagitis Qualified Code(s): K21.9 - Gastro-esophageal reflux disease without esophagitis (7) COPD (chronic obstructive pulmonary disease): Qualifiers: COPD type: chronic bronchitis Chronic bronchitis type: simple Qualified Code(s): J41.0 - Simple chronic bronchitis (8) Psoriasis: (9) Non-STEMI (non-ST elevated myocardial infarction): Plan Malaise: Unidentified cause of severe malaise, with mild mildly mottled appearance, cool to touch extremities, blood pressure soft, although not overtly hypotensive, persistently tachycardic although with transient improvement with metoprolol injections. Pads placed in anticipation of possible cardioversion, although without chest pain, maintaining soft blood pressure so far. Possible impending shock of unclear etiology. No chest pain. Troponin with noted rising trend, moderate elevation. NT proBNP elevated 13,461. D-dimer 0.76. Continues on aspirin, Plavix, statin, anticoagulation with Lovenox. With severe abdominal pain additional assessment discussed with her with CT angiogram abdomen pelvis. Yoder catheter placed, urinalysis not suggestive of UTI. Noted 10-15 hyaline casts. UDS positive for amphetamine and marijuana. No current alcohol use, but has had in the past. Currently smokes marijuana per discussion with her granddaughter, per discussion with her daughter there is history of substance use reported with amphetamine use. Assessment obtained with CTA discussed to further assess for any possible bowel ischemia. Noted mild to moderate acute encephalopathy, suspected metabolic versus toxic with mental status and out. CT angiogram abdomen with mild narrowing of celiac axis and SMA, no high-grade stenosis. Incidentally noted moderate to high-grade narrowing involving origin of single renal artery on the left with 70% stenosis. Noted to slightly nodular contour of liver suspicious for cirrhosis. Mild nonspecific periportal edema. Additionally edema/fat stranding in the hilum of the liver of uncertain etiology. Incidentally seen atherosclerosis. Small volume ascites. As per discussion with patient and family so far we are not seeing signs of sepsis, there is no fever, leukocytosis she does have tachypnea. With his mild mottling, cool extremities, concern for possible impending cardiogenic low output shock, transferred to intensive care unit. Anion gap without elevation of 15, bicarb 29, requested lactic acid. Transient improvement in heart rate with metoprolol, there was a question of possible minimal macular rash of her back, amiodarone was held. Echocardiogram is requested, not yet obtained. With findings and CTA discussed with her and family and additionally obtaining liver ultrasound including duplex to assess for any perihepatic thrombosis. Obtain hepatitis panel. Discussed with cardiology, appreciate consultation, reassessed again at bedside with cardiology. Echocardiogram difficult to obtain current time due to persistent tachycardia. Limited echo is requested. Bedside ultrasound does appear to reveal global hypokinesis, moderately reduced ejection fraction, the does not appear to have severe reduction of ejection fraction, right-sided heart without significant dilation or signs of severe overload to suggest massive PE. Lasix have been held as overall appears to be more on the dry side. As per cardiology will receive limited additional hydration with monitoring, continued efforts to control A-fib with RVR with consideration of cardioversion. Currently without signs of sepsis, however, blood cultures collected, discussed empirically treating with Zosyn for now. Does have liver cirrhosis, lower chance of SBP, only minimal ascites. Low-dose IV Dilaudid for pain. 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 Obtained CTA, so far without labs sign of bowel ischemia. Findings, question of edema/fat stranding within the hilum of the liver of uncertain etiology. Nonspecific periportal edema. Precedex for restlessness for now. Consider benzodiazepine depending on condition. New onset A-fib with RVR did not respond well to Cardizem drip with hypotension, was discontinued. She received a dose of digoxin without significant response. Was transitioned to amiodarone. Transient partial response to metoprolol pushes heart rates down into 1-teens. As overall appears to be on the dry side, diuretic held, will receive limited hydration, cardiology continue to work on controlling heart rate, may reattempt amiodarone with monitoring. Given 1 g magnesium. Follow-up chemistry, magnesium level. Anjel Vascor 3 ERICK: Creatinine up to 1.8. Noted left renal artery stenosis. Monitor for risk of worsening renal function with noted ERICK so far with possible hypoperfusion, possible impending shock. Contrast. Appears more on the dry side, receiving limited IV hydration. Diuretic held for now. Possible liver cirrhosis: Nodular liver appearance on CT. No current alcohol use but remote history. Additionally fatty liver infiltration. Minimal ascites. Without thrombocytopenia, minimal hyponatremia. Minimal transaminitis. Check hepatitis panel. Further cardiac assessment as above. Hypokalemia: Replenish. Given 1 g magnesium as well with mild hypomagnesemia. Recheck chemistry, magnesium. Mild hypomagnesemia: 1 g magnesium IV. Recheck magnesium. Unstable angina Non-STEMI Appreciate cardiology assessment. Continue anticoagulation with Lovenox, continue aspirin, Plavix, beta-carey, statin. Start patient on therapeutic Lovenox once daily regimen loaded with aspirin and Plavix Recent echo on 03/04 echo was done recently which showed 45 to 50% EF grade 1 diastolic function Venous's dermatitis, psoriasis: No significant edema of lower extremity Cardiac diet DVT prophylaxis therapeutic Lovenox Full code Patient does use marijuana Not endorsing to drill use of alcohol or smoking. Attestations 2 Medical Necessity Statement*: Continue admission for assessment of management of possible impending shock, further assessment of abdominal pain, difficult control atrial fibrillation with RVR, NSTEMI, and a lady with cardiomyopathy, recently found decreased ejection fraction, ERICK, possible toxicity versus withdrawal with amphetamine. Coding Level of Care Code Critical Care >/= 30 minutes Critical care time (in minutes): 65 The high probability of a clinically significant, sudden or life threatening deterioration, as referenced in this documentation, required my full and direct attention, intervention and personal management. The critical care time shown is in addition to time spent performing any reported separately billable procedures and includes the following: [x] Data and vital sign review and interpretation [x ] Patient assessment, examination and intervention [x] Medication orders and management [x] Patient/Family updates as able [x] Care Coordination and Documentation. Diagnoses Anxiety F41.9 Acute on chronic right-sided heart failure I50.813 Heart failure chronicity: acute on chronic Chest pain R07.9 Atrial fibrillation with rapid ventricular response I48.91 Venous (peripheral) insufficiency I87.2 Gastroesophageal reflux disease without esophagitis K21.9 Esophagitis presence: without esophagitis Simple chronic bronchitis J41.0 COPD type: chronic bronchitis Chronic bronchitis type: simple Psoriasis L40.9 Non-STEMI (non-ST elevated myocardial infarction) I21.4
--- NOTE | 2024-03-13 10:59 | PC.NURSE ---
Patient taken to ICU after CT. Report given to PIA SILVA.
[2024-03-13] MEDS: dexmedeTOMIDine 0.9 % NaCL 400 MCG/100 ML PREMIX IV (11:07)
[2024-03-13] MEDS: HYDROmorphone 1 mg/mL INJ 1 mL 0.2 MG IVP ×2 (11:16→13:28)
--- NOTE | 2024-03-13 11:26 | USCV_ITS ---
Ana Alonso Age: 63 Gender: F : 1960 Exam Date: 03/13/2024 13:13 Ordering Phys: Kun Goff MD ([email or web address]) Technologist: Kel Flores Exam Location: [facility] [place] Indication: decline in status BP: 110 / 82 HR: Rhythm: Sinus Technical Quality: Adequate MEASUREMENTS (Male / Female) Normal Values 2D ECHO LV Diastolic Diameter PLAX 3.6 cm 4.2 - 5.9 / 3.9 - 5.3 cm IVS Diastolic Thickness 1.5 cm 0.6 - 1.0 / 0.6 - 0.9 cm IVS Systolic Thickness 1.7 cm LVPW Diastolic Thickness 2.1 cm 0.6 - 1.0 / 0.6 - 0.9 cm LVPW Systolic Thickness 1.9 cm LVOT Diameter 2.0 cm LV Ejection Fraction 2D Teich 11.0 % LV Ejection Fraction MOD 4C 19.3 % LV Ejection Fraction MOD 2C 29.1 % LV Ejection Fraction 2C AL 30.6 % LA Diameter 4.6 cm RA Systolic Volume 4C AL 37.5 ml RA Systolic Volume 4C MOD 36.9 ml LA Sys Volume AL 68.5 cm cubed LA Sys Volume Index AL 31.4 cm cubed/m squared Aorta at Sinotubular Diameter 1.6 cm IVC Diameter 1.9 cm M-MODE LA Ao Ratio MM 1.5 AV Cusp Separation MM 1.1 cm FINDINGS Left Ventricle Moderately increased left ventricular cavity size. Severely decreased left ventricular systolic function. Global left ventricular hypokinesis. Left ventricular ejection fraction is estimated at 25-30 %. In the presence of atrial fibrillation and tachycardia diastolic function cannot be assessed accurately. Right Ventricle Right Atrium Left Atrium Mitral Valve Aortic Valve Tricuspid Valve Pulmonic Valve Pericardium Aorta IVC CONCLUSIONS Limited echo due to tachycardia and suboptimal images. Patient appeared to be in A-fib with RVR. Moderately increased left ventricular cavity size. Severely decreased left ventricular systolic function. Global left ventricular hypokinesis. Left ventricular ejection fraction is estimated at 25-30 %. In the presence of atrial fibrillation and tachycardia diastolic function cannot be assessed accurately. There is no pericardial effusion. Right atrial pressure is around 20 mm of mercury. Kun Goff MD (Electronically Signed) Final Date: 13 March 2024 18:15 S
--- NOTE | 2024-03-13 11:39 | P.CONIM_ITS ---
Providers/Reason For Consult 2 Consulting Physician/Specialty*: Kun Goff MD Reason for Consult*: Atrial fibrillation with rapid ventricular response Elevated cardiac markers Disorientation Attending Physician: Amadeo Fregoso Primary Care Provider: Justin Fajardo MD History of Present Illness History of Present Illness Ana Alonso is a 63 year old female past medical history significant for COPD, history of tobacco use, history of illicit drug use (please note that history as per hospital staff patient family member around does not know much). Patient presented with chest pain as per hospitalist note noted to be in A-fib with RVR, troponin was abnormal which is fifth generation and high-sensitivity, patient appeared to be disoriented, Cardizem metoprolol was initially tried but heart rate was not getting under control. When I met the patient she was more pointing towards abdominal pain she was restless, twelve-lead EKGs were suggestive of interventricular conduction delay A-fib with rapid ventricular response no significant ST?T changes suggestive of ischemia, no ST elevation. Patient at the time of my examination categorically denies chest pain. We immediately ordered echocardiogram for bedside Limited exam was performed due to noncooperation of the patient and because of the fact patient is tachycardic EF has significant reduced 30% with global hypokinesis. Initially we tried to control the heart rate and try to tease out the etiology of her abdominal pain such as ischemic bowel obstruction, CT abdomen pelvis rule out etiology. It does not appear to me that patient presentation is typical for acute coronary syndrome however nonischemic cardiomyopathy with COPD and CHF exacerbation with congested liver could be the reason. Review of Systems 2 Const: Denies: fever(s) Eyes: Denies: change in vision ENMT: Denies: throat pain Card: Reports: chest pain Resp: Reports: dyspnea GI: Reports: nausea : Denies: flank pain Medications/Allergies Home Medications Medication Instructions Recorded Confirmed Last Taken Type triamcinolone acetonide 0.1 % See Rx Instructions .Route 02/09/21 03/13/24 03/12/24 Rx topical cream .COMPLEX #90 grams cyclobenzaprine 10 mg tablet See Rx Instructions .Route 11/28/21 03/13/24 Unknown Rx .COMPLEX #75 tabs clonazepam 1 mg tablet 1 mg PO TID PRN anxiety 30 days 02/09/24 03/13/24 Unknown Rx #75 tabs albuterol sulfate 90 mcg/actuation See Rx Instructions .Route 02/20/24 03/13/24 Unknown Rx aerosol inhaler .COMPLEX #8.5 grams metolazone 5 mg tablet 5 mg PO DAILY #14 tabs 02/23/24 03/13/24 03/12/24 Rx furosemide 40 mg tablet See Rx Instructions .Route 03/03/24 03/13/24 Unknown Rx .COMPLEX #90 tabs omeprazole 40 mg capsule,delayed 40 mg PO DAILY 03/13/24 03/13/24 03/12/24 History release potassium chloride 10 mEq 10 meq PO BID #180 tabs 03/13/24 Unknown Rx tablet,extended release Allergies Allergy/AdvReac Type Severity Reaction Status Date / Time No Known Allergies Allergy Verified 03/12/24 22:13 Current Medications Generic Name Dose Route Start Last Admin Trade Name Freq PRN Reason Stop Dose Admin Aspirin 81 mg 03/13/24 09:00 03/13/24 10:12 Aspirin 81 Mg Ec Tablet PO Not Given DAILY SKINNY Atorvastatin Calcium 80 mg 03/13/24 09:00 03/13/24 10:12 Atorvastatin 40 Mg Tablet PO Not Given DAILY SKINNY Clonazepam 1 mg 03/13/24 03:19 03/13/24 03:51 Clonazepam 1 Mg Tablet PO 1 mg TID PRN Administration ANXIETY Clopidogrel Bisulfate 75 mg 03/13/24 09:00 03/13/24 10:13 Clopidogrel 75 Mg Tablet PO Not Given DAILY SKINNY Enoxaparin Sodium 100 mg 03/13/24 09:00 03/13/24 07:36 Enoxaparin 100 Mg/Ml Syringe SUBCUT 100 mg DAILY SKINNY Administration Furosemide 20 mg 03/13/24 09:00 03/13/24 07:32 Furosemide 10 Mg/Ml Sdv 2ml IVP 20 mg DAILY SKINNY Administration Hydromorphone HCl 0.2 mg 03/13/24 10:55 03/13/24 11:16 Hydromorphone 1 Mg/Ml Inj 1 Ml IVP 0.2 mg Q2H PRN Administration SEVERE PAIN Amiodarone HCl/Dextrose 360 mg in 200 mls @ 0 mls/hr 03/13/24 02:30 03/13/24 08:38 Nexterone IV 0 mg/min .Q0M SKINNY 0 mls/hr Titration Protocol Per Protocol Dexmedetomidine/Sodium Chloride 400 mcg in 100 mls @ 0 mls/hr 03/13/24 11:00 03/13/24 11:07 Precedex IV 0.1 mcg/kg/hr .Q0M SKINNY 2.49 mls/hr Administration Protocol Per Protocol Ondansetron HCl 4 mg 03/13/24 00:02 03/13/24 00:56 Ondansetron 2 Mg/Ml Sdv 2 Ml IVP 4 mg Q6H PRN Administration NAUSEA AND VOMITING Potassium Chloride 40 meq 03/13/24 09:00 03/13/24 07:36 Potassium Chloride Er 20 Meq Tablet PO 40 meq DAILY SKINNY Administration PFSH Acute 2 PFSH: Medical History Anxiety Chronic laryngitis COPD (chronic obstructive pulmonary disease) Venous (peripheral) insufficiency Depression Psoriasis GERD (gastroesophageal reflux disease) Surgical History History of total hysterectomy History of cholecystectomy Social History Smoking and tobacco/nicotine status: never used tobacco/nicotine Alcohol intake: never Substance/Drug Use: current Vitals/I&O/Wt Last Vital Signs Temp 97.5 F L 03/13/24 07:32 Pulse 140 H 03/13/24 10:40 Resp 22 H 03/13/24 11:16 BP 110/82 03/13/24 07:32 Pulse Ox 93 03/13/24 11:16 O2 Del Method Nasal Cannula 03/13/24 10:40 O2 Flow Rate 4 03/13/24 10:40 03/12/24 03/13/24 03/13/24 22:59 06:59 14:59 Intake Total 1000 / 1000 177.000 / 1177.000 297.758 / 297.758 Output Total 0 / 0 Balance 1000 / 1000 177.000 / 1177.000 297.758 / 297.758 Weight last 48 hrs Weight 219 lb 8 oz Weight 219 lb 8 oz Weight 220 lb Physical Exam 2 Const: OTHER: GENERAL: Appeared to be awake but distressed, she holds her abdomen at times HEART: Irregularly irregular r S1 and S2. No murmur, rub or gallop. LUNGS: Decreased breath sound but clear but somewhat prolonged expiratory bilaterally. CENTRAL NERVOUS SYSTEM: Grossly nonfocal. EXTREMITIES: Lower extremities with out edema bilaterally. Urinary Catheter Management: Yoder: Cath Placed During This Visit: yes Urinary Catheter Date of Insertion: 03/13/24 Urinary Catheter Time of Insertion: 08:37 Data 03/13/24 15:31 03/13/24 15:31 Consult Attestations 2 Medical Necessity Statement: Atrial fibrillation with rapid ventricle response Non-ST elevation ND could be type II cannot rule out underlying coronary artery disease for now Acute decompensated systolic heart failure on chronic Cardiomyopathy possible nonischemic/unknown etiology cannot rule out drug- induced Sepsis Acute abdomen Plan Agree with IV antibiotics Because of hypotension and A-fib RVR with question of sepsis and because of the fact lungs were clear we tried IV fluid but now I am getting more convinced that patient may behaving like decompensated systolic heart failure not tolerating A- fib and fast heart rhythm, echocardiogram is consistent with worsening of ejection fraction which is globally hypokinetic IVC appeared to be dilated with possible right atrial pressure more than 20 mmHg, pulmonary pressures were not recorded due to technical reason, I will DC IV fluid, will start back her on IV amiodarone, will try to slow her down if does not get slow may will try to cardiovert electively due to decompensated heart failure. I will start patient on IV diuretics Electrolyte will be replenished Troponin will be trended Continue IV heparin Further plan will be devised as per progress of the patient Coding Level of Care Code Acute Code for Fatimah Fwd
--- NOTE | 2024-03-13 11:40 | XRR_ITS ---
PROCEDURE INFORMATION: Exam: XR Chest Exam date and time: 03/13/2024 12:17 PM Age: 63 years old Clinical indication: Device placement; Picc; Additional info: Post picc insertion, maritza placing in icu 2. Should be ready at 1215 TECHNIQUE: Imaging protocol: Radiologic exam of the chest. Views: 1 view. COMPARISON: CR XR chest 1V portable [id number] 03/12/2024 10:08 PM FINDINGS: Tubes, catheters and devices: Tip of the left PICC line projects over the mid SVC Lungs: No focal consolidation. Moderate interstitial and vascular prominence. Pleural spaces: No pneumothorax or pleural effusion. Heart/Mediastinum: Heart is enlarged. Mediastinum is mildly widened, a component of which is due to moderate rightward rotation. Bones/joints: No acute osseous or soft tissue abnormality. XR/XR chest 1V portable [id number] IMPRESSION: 1. Mild pulmonary edema. Possible CHF. 2. Cardiomegaly. 3. Mediastinum is mildly widened, a component of which is due to moderate rightward rotation.
[2024-03-13 12:03] LABS: Lactate (Lactic Acid level) 3.4 mmol/L (0.5-2.2)
[2024-03-13 12:30] LABS: Hepatitis A Antibody IgM Non-Reactive (Nonreactive); Hepatitis B Core IgM Non-Reactive (Nonreactive); Hepatitis B Surface Antigen Non-Reactive (Nonreactive); Hepatitis C Virus Antibody Non-Reactive (Nonreactive)
[2024-03-13] MEDS: piperacillin-tazobactam 3.375 GM in sodium chloride 0.9% (plus) 50 ML IV ×2 (12:48→23:34)
[2024-03-13] MEDS: sodium chloride 0.9% 1,000 ML 999 ML IV (12:50)
--- NOTE | 2024-03-13 12:54 | PICC.NOTE ---
Double lumen PICC placed to left basilic vein. Referred to vascular access nurse for PICC placement due to poor access. Risks and benefits discussed and informed consent obtained from pt granddaughter. Left arm assessed with left basilic vein measuring 3.0 mm, straight, and apparent best choice for placement. Using sterile technique and MST, left basilic vein accessed x 1 stick. Mid-arm circumference measured 10 cm from left AC 32 cm. Trimmed cath 45 cm with 3 cm external length noted. CXR shows tip to appear to be in distal SVC, awaiting radiologist to read. Line secured with stat-lock. Insertion site covered with Biopatch and TSM. Report given to bedside nurse, RICARDO, RN.
--- NOTE | 2024-03-13 13:45 | CTR_ITS ---
PROCEDURE INFORMATION: Exam: CT Chest Without Contrast; Diagnostic Exam date and time: 03/13/2024 4:30 PM Age: 63 years old Clinical indication: Abnormal findings; Abnormal radiologic exam of lung or chest; Additional info: Mildly widened mediastinum on cxr TECHNIQUE: Imaging protocol: Diagnostic computed tomography of the chest without contrast. Radiation optimization: All CT scans at this facility use at least one of these dose optimization techniques: automated exposure control; mA and/or kV adjustment per patient size (includes targeted exams where dose is matched to clinical indication); or iterative reconstruction. COMPARISON: CR (CHEST, ) 03/13/2024 12:17 PM RADIATION DOSE METRICS: Total DLP (mGy-cm): 626.81 FINDINGS: Lungs: Smooth septal markings in the upper lobes with minimal ground-glass opacities in the posterior aspect of the upper lobes which may represent pulmonary vascular congestion. Pleural spaces: Unremarkable. No pneumothorax. No pleural effusion. Heart: The heart is enlarged. Coronary arteries: Coronary arterial atherosclerotic calcifications are present. Lymph nodes: Scattered mild the prominent paratracheal lymph nodes measuring up to 8 mm in short axis which are thought likely to be reactive. Vasculature: The main pulmonary artery is enlarged measuring up to 37 mm which can be seen the setting of pulmonary artery hypertension. Gallbladder and biliary ducts: The gallbladder is absent. Kidneys: The visualized renal parenchyma is heterogeneous bilaterally. No perinephric fat stranding identified. If there is clinical concern for pyelonephritis, UA may be beneficial. Right simple appearing renal cyst is present which do not need further follow-up. Bones/joints: Unremarkable. No acute fracture. Soft tissues: Unremarkable. CT/CT chest wo con [id number] IMPRESSION: 1. Smooth septal markings in the upper lobes with minimal ground-glass opacities in the posterior aspect of the upper lobes which may represent pulmonary vascular congestion. 2. The visualized renal parenchyma is heterogeneous bilaterally. No perinephric fat stranding identified. If there is clinical concern for pyelonephritis, UA may be beneficial. 3. The main pulmonary artery is enlarged measuring up to 37 mm which can be seen the setting of pulmonary artery hypertension. 4. Cardiomegaly. 5. No mediastinal masses. COMMENTS: Consistent with the [place] [employer]'s Incidental Findings Committee white paper (J Am Jonathan Radiol 2018): Any incidental renal lesion less than 1 cm or classified as too small to characterize, or any incidental cystic renal lesion characterized as simple-appearing, is likely benign. No follow-up imaging is recommended for these lesions per consensus recommendations based on imaging criteria.
--- NOTE | 2024-03-13 14:54 | PC.NURSE ---
severe pain prior remains rolling in bed severe mottling remains pulled iv out right restarted precedex at 0.2 in picc site and started ammiodirone after talking with doctors now resting at this time and doppling blood pressure of 120 at present machine unable to take
[2024-03-13 15:42] LABS: Basophils # 0.1 10^3/uL (0.0-0.1); Basophils % 0.4 %; Lymphocytes # 0.9 10^3/uL (0.8-4.8); Lymphocytes % 6.1 %; Mean Corpuscular HGB Conc 32.2 g/dL (30-55); Mean Corpuscular Hemoglobin 32.1 pg (27-33); Mean Corpuscular Volume 99.8 fl (85-98); Mean Platelet Volume 10.2 fL (7.4-10.4); Monocytes # 0.7 10^3/uL (0.2-0.9); Monocytes % 4.5 %; Neutrophils # 13.41 10^3/uL (1.8-7.7); Neutrophils % 88.4 %; Nucleated Red Blood Cells % 0 %; Platelet Count 224 10^3/cmm (157-399); Red Blood Count 4.61 10^6/uL (3.85-5.65); Red Cell Distribution Width 14.8 % (12.1-15.1); White Blood Count 15.16 10^3/uL (3.29-11.43)
[2024-03-13 15:54] LABS: INR 1.56 (0.8-1.2)
[2024-03-13 15:58] LABS: Albumin Level 3.5 g/dL (3.5-5.2); Carbon Dioxide 25 mmol/L (22-29); Creatinine Clr Calc Pharmacy 28.4972; Globulin 2.7 g/dL (1.3-4.6); Total Bilirubin 0.9 mg/dL (0.15-1.2)
[2024-03-13 16:06] LABS: Alanine Aminotransferase 392 U/L (0-33); Alkaline Phosphatase 117 U/L (35-105); Aspartate Amino Transferase 614 U/L (0-32); Blood Urea Nitrogen 26 mg/dL (8-23); Calcium 8.7 mg/dL (8.5-10.5); Chloride 94 mmol/L (98-107); Glomerular Filtration Rate 23.6 mL/min (90-130); Glucose 139 mg/dL (65-115); Lipase 24 U/L (13-60); Osmolality Calculated 293 mOsm/kg (285-295); Sodium 138 mmol/L (136-145); Total Protein 6.5 g/dL (6.6-8.7)
[2024-03-13 16:18] LABS: Lactate Dehydrogenase 1167 U/L (135-214)
[2024-03-13] MEDS: norepinephrine 4 MG/250 ML BAG 7.5 MG IV (17:39)
[2024-03-13 18:39] LABS: Iron 57 ug/dL (37-145)
[2024-03-13 18:42] LABS: Acetaminophen < 5.0 ug/mL (10-30)
[2024-03-13 18:53] LABS: Ferritin 2130 ng/mL (15-150)
[2024-03-13 19:03] LABS: Lactate Dehydrogenase 1160 U/L (135-214)
--- NOTE | 2024-03-13 19:05 | PC.NURSE ---
Dr foley here talked with family at length along with dr foy daughter and grandaughter at bedside .... aware of results at this time
[2024-03-13] MEDS: FUROsemide 10 mg/mL SDV 10mL 60 MG IVP (19:27)
[2024-03-13] MEDS: FUROsemide 100 MG in sodium chloride 0.9% 40 ML IV (20:20)
[2024-03-13 20:58] LABS: ABG PCO2 49.9 mmHg (35-45); ABG PH Result 7.34 (7.35-7.45); Arterial Blood Gas Hematocrit 47.6 % (37-47); Base Excess ABG 0.2 mmol/L (-2.0-2.0); Blood Gas LPM 3.5 %; Blood Gas Operator Identificat SAM; Blood Gas Sample Site Brachial, right; Blood Gas Sample Type Arterial; HCO3 ABG 26.9 mmol/L (22-26); Oxygen Device NC; PO2 ABG 70.5 mmHg (80.0-100.0)
[2024-03-14] VITALS (95 sets, daily range): BP systolic 66–151; BP diastolic 34–102; PULSE 68–169; RESP 17–48; TEMP 36.5–36.8; O2SAT 78–100
[2024-03-14] MEDS: ondansetron 2 mg/ML SDV 2 mL 4 MG IVP (00:47)
[2024-03-14] MEDS: morphine IR 15 mg Tablet PO (00:51)
[2024-03-14] MEDS: FUROsemide 100 MG in sodium chloride 0.9% 40 ML 20 MG IV ×2 (00:59→03:28)
[2024-03-14] MEDS: HYDROmorphone 1 mg/mL INJ 1 mL 0.4 MG IVP (01:11)
[2024-03-14 01:24] LABS: Anion Gap 29.2 (5-19); Blood Urea Nitrogen 32 mg/dL (8-23); Calcium 7.7 mg/dL (8.5-10.5); Carbon Dioxide 23 mmol/L (22-29); Chloride 83 mmol/L (98-107); Creatinine Clr Calc Pharmacy 24.2754; Glomerular Filtration Rate 17.7 mL/min (90-130); Glucose 402 mg/dL (65-115); Osmolality Calculated 296 mOsm/kg (285-295); Potassium 4.2 mmol/L (3.5-5.1); Sodium 131 mmol/L (136-145)
--- NOTE | 2024-03-14 01:50 | PC.NURSE ---
Increase Amio drip: Patient's HR was maintaining in the 140s-160s, Dr. Goff was notified and gave telephone orders to increase amiodarone drip back to 1mg/min.
[2024-03-14 03:35] LABS: Basophils % 0.2 %; Hematocrit 47.5 % (36-47); Lymphocytes # 1.1 10^3/uL (0.8-4.8); Lymphocytes % 5.7 %; Mean Corpuscular HGB Conc 31.6 g/dL (30-55); Mean Corpuscular Hemoglobin 31.1 pg (27-33); Mean Corpuscular Volume 98.5 fl (85-98); Mean Platelet Volume 10.6 fL (7.4-10.4); Monocytes # 1.1 10^3/uL (0.2-0.9); Monocytes % 5.6 %; Neutrophils # 16.46 10^3/uL (1.8-7.7); Neutrophils % 87.3 %; Nucleated Red Blood Cells % 0.1 %; Platelet Count 202 10^3/cmm (157-399); Red Blood Count 4.82 10^6/uL (3.85-5.65); Red Cell Distribution Width 14.9 % (12.1-15.1); White Blood Count 18.84 10^3/uL (3.29-11.43)
[2024-03-14 03:50] LABS: INR 2.36 (0.8-1.2)
[2024-03-14 03:59] LABS: Albumin Level 3.5 g/dL (3.5-5.2); Alkaline Phosphatase 130 U/L (35-105); Anion Gap 35.4 (5-19); Blood Urea Nitrogen 36 mg/dL (8-23); Calcium 8.5 mg/dL (8.5-10.5); Carbon Dioxide 18 mmol/L (22-29); Chloride 89 mmol/L (98-107); Creatinine Clr Calc Pharmacy 18.7267; Globulin 2.9 g/dL (1.3-4.6); Glomerular Filtration Rate 13.1 mL/min (90-130); Glucose 40 mg/dL (65-115); Magnesium 2.3 mg/dL (1.7-2.3); Osmolality Calculated 291 mOsm/kg (285-295); Potassium 4.4 mmol/L (3.5-5.1); Sodium 138 mmol/L (136-145); Total Bilirubin 1.4 mg/dL (0.15-1.2); Total Protein 6.4 g/dL (6.6-8.7)
[2024-03-14 04:10] LABS: Alanine Aminotransferase 2151 U/L (0-33)
[2024-03-14 04:11] LABS: Aspartate Amino Transferase 3808 U/L (0-32)
--- NOTE | 2024-03-14 05:28 | XRR_ITS ---
PROCEDURE INFORMATION: Exam: XR Chest Exam date and time: 03/14/2024 5:29 AM Age: 63 years old Clinical indication: Patient HX: Cardiac arrest. Intubated. TECHNIQUE: Imaging protocol: Radiologic exam of the chest. Views: 1 view. COMPARISON: CT chest con [id number] 03/13/2024 4:30 PM FINDINGS: Tubes, catheters and devices: The endotracheal tube is located just above the myah. Left upper extremity PICC line in the distal superior vena cava. Lungs: Diffusely increased interstitial lung markings bilaterally with some hazy ground glass changes of the lung kevin. Pleural spaces: Unremarkable. No pleural effusion. No pneumothorax. Heart/Mediastinum: Cardiac enlargement. Bones/joints: Unremarkable. XR/XR chest 1V portable [id number] IMPRESSION: 1. Pulmonary edema features. 2. Cardiac enlargement. 3. Endotracheal tube is just above the myah.
--- NOTE | 2024-03-14 05:33 | ECG_ITS ---
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1960 Requested By: Kun Nieto Order Number: [id number] Reading MD: KUN HAWK Measurements Intervals Guild Rate: 86 P: 55 CA: 153 QRS: -61 QRSD: 122 T: 96 QT: 388 QTc: 466 Interpretive Statements SINUS RHYTHM POSSIBLE LEFT ATRIAL ENLARGEMENT [-0.1mV P-WAVE IN V1/V2] LEFT ANTERIOR FASCICULAR BLOCK [QRS AXIS <= -45, QR IN I, RS IN II] LEFT VENTRICULAR HYPERTROPHY AND ST-T CHANGE [VOLTAGE CRITERIA PLUS ST/T ABNORMALITY] INTERPRETATION BASED ON A DEFAULT AGE OF 40 YEARS Compared to ECG 03/13/2024 04:28:45 ST (T wave) deviation now present Atrial fibrillation no longer present Ventricular premature complex(es) no longer present Aberrant conduction of supraventricular beat(s) no longer present T-wave abnormality no longer present Electronically Signed On 03-15-2024 16:10:48 MARKETING OPERATIONS INTERN by KUN HAWK [id number] erin
[2024-03-14] MEDS: heparin drip 25,000 UNIT/500 ML PREMIX 28 UNIT IV (05:42)
[2024-03-14] MEDS: heparin 5,000 unit/mL INJ 1 mL IVP (05:42)
[2024-03-14 05:48] LABS: ABG PCO2 43.4 mmHg (35-45); Arterial Blood Gas Hematocrit 44.4 % (37-47); Base Excess ABG -16.5 mmol/L (-2.0-2.0); Blood Gas Sample Site Brachial, right; Blood Gas Sample Type Arterial; Carboxyhemoglobin 0.6 %THgb (0.4-20.1); HCO3 ABG 13.1 mmol/L (22-26); HGB O2 Sat 97.1 % (95-100); Ionized Calcium Level - ABG 0.9 mmol/L (1.1-1.4); Methemoglobin 0.8 % (0.4-1.5); Oxygen Device AMBU; Oxygen Saturation ABG 98.5; Potassium Level - ABG 3.5 mmol/L (3.5-5.0); Total Hemoglobin 14.5 g/dL (12-16)
[2024-03-14] MEDS: EPINEPHrine 2.5 MG in sodium chloride 0.9% 250 ML 12.12 MG IV (05:48)
[2024-03-14 05:49] LABS: ABG PH Result 7.09 (7.35-7.45)
[2024-03-14 05:52] LABS: Basophils # 0.1 10^3/uL (0.0-0.1); Basophils % 0.5 %; Hematocrit 43.7 % (36-47); Lymphocytes # 1.7 10^3/uL (0.8-4.8); Lymphocytes % 12.9 %; Mean Corpuscular HGB Conc 31.6 g/dL (30-55); Mean Corpuscular Hemoglobin 31.9 pg (27-33); Mean Corpuscular Volume 101.2 fl (85-98); Mean Platelet Volume 10.9 fL (7.4-10.4); Monocytes # 0.7 10^3/uL (0.2-0.9); Monocytes % 4.9 %; Neutrophils # 10.48 10^3/uL (1.8-7.7); Neutrophils % 79.7 %; Nucleated Red Blood Cells # 0.1 /100WBC; Nucleated Red Blood Cells % 0.6 %; Platelet Count 175 10^3/cmm (157-399); Red Blood Count 4.32 10^6/uL (3.85-5.65); White Blood Count 13.15 10^3/uL (3.29-11.43)
[2024-03-14 05:59] LABS: Glucose Point of Care 252 mg/dL (70-110)
[2024-03-14] MEDS: fentaNYL 1,000 MCG/100 ML BAG 2.5 MCG IV (06:11)
--- NOTE | 2024-03-14 06:18 | PC.RESP ---
RT called to icu 2 stat Cpr started by team and patient intubated by ER doctor at 0518 patient has an 8.0 ETT tube 23@ the lip patient placed on vent after rosc was achieved. RT to monitor patient status.
[2024-03-14] MEDS: lidocaine 1% 5 ML in potassium chloride premix 100 ML 25 ML IV (06:22)
[2024-03-14] MEDS: norepinephrine 4 MG/250 ML BAG 45 MG IV ×4 (06:24→22:10)
[2024-03-14 06:32] LABS: Lactate (Lactic Acid level) 20.3 mmol/L (0.5-2.2)
--- NOTE | 2024-03-14 06:38 | W.PM.EVENTAC ---
Event Note Event Note: Overnight received multiple phone calls on the patient that patient is an anuric despite Lasix drip, she was requiring Levophed at 2 mics all night Her heart rate was around 140s A-fib RVR, cardiology was notified amio drip was turned up to 1 mg patient was put on Precedex drip because she was very agitated and was complaining of abdominal pain Rapid response was called for sudden onset of agonal breathing & soon CODE BLUE was called within few seconds Chest compressions were started by the nursing staff When I arrived the ER doctor Dr. Vyas was intubating the patient ACLS protocol was followed, patient received 3 doses of epinephrine, 1 dose of bicarb, ROSC was obtained after 10 minutes Chest tube was readjusted after reviewing chest x-ray, I started patient on heparin drip, gave 1 amp of calcium chloride, another amp of bicarb ABG revealed blood glucose 7 she was given 2 A of D50 which brought her blood sugar above 200 She is extremely acidotic metabolic acidosis lactic acid 20, plan is to replenish her potassium first before starting bicarb drip, order of K rider 40 mill equivalent given as soon as K rider is finished bicarb drip should be started at 100 mL/h Currently on Levophed at 12 mics, epinephrine at 6 Sister updated EKG is showing sinus rhythm, patient has converted to sinus rhythm after ROSC achieved Rule out cardiac tamponade requested another echo Patient will also need nephro consultation for consideration of dialysis
--- NOTE | 2024-03-14 06:43 | USCV_ITS ---
Ana Alonso Age: 63 Gender: F : 1960 Exam Date: 03/14/2024 06:58 Ordering Phys: Kun Nieto MD Technologist: Kel Flores [place] [facility] [place]: cardiac tamponade? BP: 136 / 57 HR: Rhythm: Sinus Technical Quality: Adequate MEASUREMENTS (Male / Female) Normal Values 2D ECHO LV Diastolic Diameter PLAX 4.3 cm 4.2 - 5.9 / 3.9 - 5.3 cm IVS Diastolic Thickness 1.6 cm 0.6 - 1.0 / 0.6 - 0.9 cm IVS Systolic Thickness 1.8 cm LVPW Diastolic Thickness 1.3 cm 0.6 - 1.0 / 0.6 - 0.9 cm LVPW Systolic Thickness 1.8 cm LVOT Diameter 2.1 cm LV Ejection Fraction 2D Teich 36.8 % LV Ejection Fraction MOD 4C 48.5 % LV Ejection Fraction MOD 2C 42.7 % LV Ejection Fraction 2C AL 44.9 % LA Diameter 4.1 cm RA Systolic Volume 4C AL 34.5 ml RA Systolic Volume 4C MOD 35.0 ml LA Sys Volume AL 61.9 cm cubed LA Sys Volume Index AL 28.4 cm cubed/m squared Aorta at Sinotubular Diameter 2.1 cm IVC Diameter 1.8 cm M-MODE LA Ao Ratio MM 1.7 AV Cusp Separation MM 1.3 cm FINDINGS Left Ventricle Mildly increased left ventricular cavity size. Moderately decreased left ventricular systolic function. Left ventricular ejection fraction is estimated at 35-40 %. Global left ventricular hypokinesis. Right Ventricle Right Atrium Left Atrium Mildly increased left atrial size. Mitral Valve Aortic Valve Tricuspid Valve Pulmonic Valve Pericardium Aorta IVC CONCLUSIONS Limited echo postcode Mildly increased left ventricular cavity size. Moderately decreased left ventricular systolic function. Left ventricular ejection fraction is estimated at 35-40 %. Global left ventricular hypokinesis. Mildly increased left atrial size. There is no pericardial effusion. Right atrial pressure is around 10 mm of mercury. When compared to the prior echocardiogram ejection fraction appeared to be improved from 25 to 35% patient appeared to be in sinus rhythm now, IVC is less dilated and collapsed suggestive of improve hemodynamic Kun Goff MD (Electronically Signed) Final Date: 14 March 2024 21:44 S
--- NOTE | 2024-03-14 06:43 | PC.NURSE ---
Event: This nurse along with one other were helping patient back into bed as she was agitated and trying to stand, after doing so patient became unresponsive with agonal respirations. Bagging was started and a rapid response was called, a pulse was palpated in the femoral artery. After one minute pulse was lost and patients heart rate dropped from 150s to 70s. Compressions were started immediately. 0515 PEA mcg levo 0516 1mg IVP EPI 2mcg levo 0518 asystole 2cg levo 0519 1mg IVP EPI 2mcg levo 0520 PEA 1 amp bicarb 2 mcg levo 0522 PEA 1mg IVP EPI 2mcg levo 0524ROSC SR 83BMP 2mcg levo
[2024-03-14 06:52] LABS: Alkaline Phosphatase 142 U/L (35-105); Anion Gap 39.6 (5-19); Blood Urea Nitrogen 38 mg/dL (8-23); Calcium 9.1 mg/dL (8.5-10.5); Carbon Dioxide 17 mmol/L (22-29); Chloride 87 mmol/L (98-107); Globulin 2.3 g/dL (1.3-4.6); Glomerular Filtration Rate 12.3 mL/min (90-130); Glucose 248 mg/dL (65-115); Magnesium 2.5 mg/dL (1.7-2.3); Osmolality Calculated 307 mOsm/kg (285-295); Potassium 3.6 mmol/L (3.5-5.1); Sodium 140 mmol/L (136-145); Total Bilirubin 1.3 mg/dL (0.15-1.2); Total Protein 5.3 g/dL (6.6-8.7)
[2024-03-14 06:55] LABS: Creatinine Clr Calc Pharmacy 17.7145
[2024-03-14 07:03] LABS: Alanine Aminotransferase 5049 U/L (0-33)
[2024-03-14 07:16] LABS: Aspartate Amino Transferase 9135 U/L (0-32)
[2024-03-14 08:21] LABS: Glucose Point of Care 199 mg/dL (70-110)
[2024-03-14 09:06] LABS: Iron 82 ug/dL (37-145); Percent Saturation 25.7 % (20-50); Total Iron Binding Capacity 318 mcg/dl; Unsaturated Iron Binding 236 ug/dL (112-347)
--- NOTE | 2024-03-14 10:05 | PM.PN ---
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 Yesterday patient was started on IV Lasix drip I saw her back in for multiple time in the ICU in the night, due to low urine output diuretic drip was titrated, a limited echo suggestive of severely depressed ejection fraction 25 to 30% with global hypokinesis suggestive of possible buttoning of cardiomyopathy. Patient on 2 pressors with very low urine output. Liver function has worsened appear to be more shocky congested liver. One of the family member confirmed regular use of meth and marijuana abuse. She is positive for both. Vitals/I&O/Wt Last Vital Signs Temp 97.9 F 03/14/24 08:00 Pulse 73 03/14/24 08:45 Resp 18 03/14/24 08:45 BP 115/51 03/14/24 08:45 Pulse Ox 99 03/14/24 08:45 O2 Del Method Mechanical Ventilation 03/14/24 08:45 O2 Flow Rate 5 03/14/24 01:15 FiO2 75 03/14/24 08:45 03/13/24 03/14/24 03/14/24 22:59 06:59 14:59 Intake Total 365.272 / 1187.183 736.437 / 1923.620 Output Total 675 / 675 75 / 750 Balance -309.728 / 512.183 661.437 / 1173.620 Weight last 48 hrs Weight 219 lb 8 oz Weight 219 lb 8 oz Weight 220 lb Physical Exam Const: OTHER: Patient is intubated and sedated HEART: Regular S1 and S2. No murmur, rub or gallop. LUNGS: Decreased breath sounds bilaterally. CENTRAL NERVOUS SYSTEM: Sedated cannot assess EXTREMITIES: Lower extremities with out edema bilaterally. Urinary Catheter Management: Yoder: Cath Placed During This Visit: yes Reason for Continuing Indwelling Catheter: Accurate Measurement of Urinary Output in Critically Ill Patients Urinary Catheter Date of Insertion: 03/13/24 Urinary Catheter Time of Insertion: 08:37 Data 03/14/24 05:43 03/14/24 06:23 Micro: Microbiology 03/13/24 13:00 Blood Culture - Preliminary Blood SPECIMEN COLLECTED 03/13/24 13:06 Blood Culture - Preliminary Blood SPECIMEN COLLECTED A&P Assessment and plan (1) Shock: Plan Cardiogenic shock on pressor support Cardiorenal etiology for acute renal failure with severe oliguria 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 Patient has severely reduced left ventricular ejection fraction with global hypokinesis perhaps due to nonischemic drug induced cardiomyopathy. 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 I was told [facility] was also consulted and was told that she is not a transplant right candidate. Given her comorbidities I agree and concur. We will also request nephrology consult. Suspicion of aortic root dissection is low, similarly by EKG patient does not have any significant ST's ST changes or ST elevation suggestive of ischemic etiology. At this point she may not benefit or indicated to be taken to the Financial Institution Manager. Our plan is to continue diuretic drip and add metolazone, I will stop amiodarone for worsening of liver function perhaps it is due to shock but like to rule out any amiodarone continuation. I am not sure whether she will be a candidate for dialysis CRRTif can be done I will leave decision to nephrology and the family. Attestations Medical Necessity Statement*: This is a critically ill patient with poor prognosis, she requires continuation of hospitalization underwent in the ICU. Coding Level of Care Code Acute Code for g Fwd Diagnoses Shock R57.9
[2024-03-14] MEDS: EPINEPHrine 2.5 MG in sodium chloride 0.9% 250 ML 54.54 MG IV ×3 (10:27→20:01)
[2024-03-14] MEDS: LORazepam 2 mg/mL INJ 1 mL 1 MG IVP ×2 (10:33→10:38)
[2024-03-14] MEDS: midazolam hcl 100 MG/100 ML BAG IV (10:38)
--- NOTE | 2024-03-14 10:56 | P.CONIM_ITS ---
Providers/Reason For Consult 2 Consulting Physician/Specialty*: espinoza adam md / telenephrology Reason for Consult*: ERICK/ metabolic acidosis Requesting Physician: DR Suzanne Tracey Attending Physician: Amadeo Fergoso Primary Care Provider: Justin Fajardo MD History of Present Illness History of Present Illness Ana Alonso is a 63 year old female who presented on March 12, 2024 with chest pain she was found to have atrial fibrillation with rapid ventricular response rate of 185 she was started on Cardizem drip and was diagnosed with a non-ST elevation DE. On March [address] a CT angiogram as she was having severe abdominal pain her urinalysis was done and she had urine tox positive for amphetamine and marijuana. 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 The patient developed an increased anion gap metabolic acidosis and acute kidney injury the patient was treated furosemide at first and then started on empiric Zosyn. The patient was seen by cardiology on March 13, 2024 and she had an echocardiogram showing an EF of 30% which is a decrease. The patient has underlying COPD as per notes.This morning at 6:30 AM the patient developed a heart rate of 140s irregular irregular and then had a cardiac arrest and required Levophed and epinephrine the patient is intubated and renal was called for discussion of dialysis. The patient was seen by Dr. Duque today and recommended continuing diuretics stopping amiodarone and continuing medical management. Renal was called as the patient is now multiorgan failure and is not urinating and has severe lactic acidosis after cardiac arrest. Review of Systems 2 Narrative: Patient is intubated unable to obtain. Medications/Allergies Home Medications Medication Instructions Recorded Confirmed Last Taken Type triamcinolone acetonide 0.1 % See Rx Instructions .Route 02/09/21 03/13/24 03/12/24 Rx topical cream .COMPLEX #90 grams cyclobenzaprine 10 mg tablet See Rx Instructions .Route 11/28/21 03/13/24 Unknown Rx .COMPLEX #75 tabs clonazepam 1 mg tablet 1 mg PO TID PRN anxiety 30 days 02/09/24 03/13/24 Unknown Rx #75 tabs albuterol sulfate 90 mcg/actuation See Rx Instructions .Route 02/20/24 03/13/24 Unknown Rx aerosol inhaler .COMPLEX #8.5 grams metolazone 5 mg tablet 5 mg PO DAILY #14 tabs 02/23/24 03/13/24 03/12/24 Rx furosemide 40 mg tablet See Rx Instructions .Route 03/03/24 03/13/24 Unknown Rx .COMPLEX #90 tabs omeprazole 40 mg capsule,delayed 40 mg PO DAILY 03/13/24 03/13/24 03/12/24 History release potassium chloride 10 mEq 10 meq PO BID #180 tabs 03/13/24 Unknown Rx tablet,extended release Allergies Allergy/AdvReac Type Severity Reaction Status Date / Time No Known Allergies Allergy Verified 03/12/24 22:13 Current Medications Generic Name Dose Route Start Last Admin Trade Name Freq PRN Reason Stop Dose Admin Aspirin 81 mg 03/13/24 09:00 03/13/24 10:12 Aspirin 81 Mg Ec Tablet PO Not Given DAILY SKINNY Atorvastatin Calcium 80 mg 03/13/24 09:00 03/13/24 10:12 Atorvastatin 40 Mg Tablet PO Not Given DAILY SKINNY Clonazepam 1 mg 03/13/24 03:19 03/13/24 03:51 Clonazepam 1 Mg Tablet PO 1 mg TID PRN Administration ANXIETY Clopidogrel Bisulfate 75 mg 03/13/24 09:00 03/13/24 10:13 Clopidogrel 75 Mg Tablet PO Not Given DAILY SKINNY Furosemide 20 mg 03/13/24 09:00 03/13/24 07:32 Furosemide 10 Mg/Ml Sdv 2ml IVP 20 mg DAILY SKINNY Administration Hydromorphone HCl 0.4 mg 03/13/24 13:50 03/14/24 01:11 Hydromorphone 1 Mg/Ml Inj 1 Ml IVP 0.4 mg Q2H PRN Administration SEVERE PAIN Amiodarone HCl/Dextrose 360 mg in 200 mls @ 0 mls/hr 03/13/24 02:30 03/14/24 05:12 Nexterone IV 0 mg/min .Q0M SKINNY 0 mls/hr Titration Protocol Per Protocol Dexmedetomidine/Sodium Chloride 400 mcg in 100 mls @ 0 mls/hr 03/13/24 11:00 03/14/24 03:37 Precedex IV 0.2 mcg/kg/hr .Q0M SKINNY 4.98 mls/hr Titration Protocol Per Protocol Piperacillin Sod/Tazobactam 50 mls @ 12.5 mls/hr 03/13/24 11:45 03/14/24 03:58 Sod 3.375 gm/ Sodium Chloride IV Infused Q12H SKINNY Infusion Protocol Norepinephrine Bitartrate 4 mg in 250 mls @ 0 mls/hr 03/13/24 17:30 03/14/24 06:24 Levophed IV 12 mcg/min .Q0M SKINNY 45 mls/hr Administration Protocol Per Protocol Furosemide 100 mg/ Sodium 50 mls @ 0 mls/hr 03/13/24 18:30 03/14/24 05:12 Chloride IV 0 mg/hr .Q0M SKINNY 0 mls/hr Titration Protocol Per Protocol Epinephrine HCl 2.5 mg/ Sodium 252.5 mls @ 0 mls/hr 03/14/24 05:30 03/14/24 10:27 Chloride IV 9 mcg/min .Q0M SKINNY 54.54 mls/hr Administration Protocol Per Protocol Heparin Sodium/Sodium Chloride 25,000 unit in 500 mls @ 0 mls/hr 03/14/24 05:45 03/14/24 05:42 Heparin Drip IV 14.06 unit/kg/hr CONT SKINNY 28 mls/hr Administration Protocol Per Protocol Fentanyl 1,000 mcg in 100 mls @ 0 mls/hr 03/14/24 05:45 03/14/24 06:11 Sublimaze IV 50 mcg/hr .Q0M SKINNY 5 mls/hr Titration Protocol Per Protocol Midazolam HCl 100 mg in 100 mls @ 0 mls/hr 03/14/24 10:30 03/14/24 10:38 Versed IV 1 mg/hr .Q0M SKINNY 1 mls/hr Administration Protocol Per Protocol Morphine Sulfate 15 mg 03/13/24 00:02 03/14/24 00:51 Morphine Ir 15 Mg Tablet PO 15 mg Q6H PRN Administration MODERATE PAIN Ondansetron HCl 4 mg 03/13/24 00:02 03/14/24 00:47 Ondansetron 2 Mg/Ml Sdv 2 Ml IVP 4 mg Q6H PRN Administration NAUSEA AND VOMITING Potassium Chloride 40 meq 03/13/24 09:00 03/13/24 07:36 Potassium Chloride Er 20 Meq Tablet PO 40 meq DAILY SKINNY Administration PFSH Acute 2 PFSH: Medical History Anxiety Chronic laryngitis COPD (chronic obstructive pulmonary disease) Venous (peripheral) insufficiency Depression Psoriasis GERD (gastroesophageal reflux disease) Surgical History History of total hysterectomy History of cholecystectomy Social History Smoking and tobacco/nicotine status: never used tobacco/nicotine Alcohol intake: never Substance/Drug Use: current Vitals/I&O/Wt Last Vital Signs Temp 97.9 F 03/14/24 08:00 Pulse 73 03/14/24 08:45 Resp 20 H 03/14/24 10:38 BP 115/51 03/14/24 08:45 Pulse Ox 100 03/14/24 10:38 O2 Del Method Mechanical Ventilation 03/14/24 08:45 O2 Flow Rate 5 03/14/24 01:15 FiO2 75 03/14/24 10:38 03/13/24 03/14/24 03/14/24 22:59 06:59 14:59 Intake Total 365.272 / 1187.183 736.437 / 1923.620 197.556 / 197.556 Output Total 675 / 675 75 / 750 Balance -309.728 / 512.183 661.437 / 1173.620 197.556 / 197.556 Weight last 48 hrs Weight 99.564 kg Weight 99.564 kg Weight 99.79 kg Physical Exam 2 Narrative: Patient remains on 2 pressors Levophed and epinephrine she is on the vent requiring FiO2 of 75% and PEEP of 6. She is awake and responsive. HEENT is normocephalic atraumatic. Neck is supple Lungs have rhonchi and crackles bilaterally. Heart is regular with systolic murmur. Abdomen is soft positive bowel sounds. Extremities have poor pulses and no significant edema. Neuro she is sedated however she awakens and moves. Urinary Catheter Management: Yoder: Cath Placed During This Visit: yes Reason for Continuing Indwelling Catheter: Accurate Measurement of Urinary Output in Critically Ill Patients Urinary Catheter Date of Insertion: 03/13/24 Urinary Catheter Time of Insertion: 08:37 Data 03/14/24 05:43 03/14/24 06:23 Micro: Microbiology 03/13/24 13:00 Blood Culture - Preliminary Blood SPECIMEN COLLECTED 03/13/24 13:06 Blood Culture - Preliminary Blood SPECIMEN COLLECTED A&P Assessment and plan (1) ERICK (acute kidney injury): 63-year-old lady with history of amphetamine use, patient had heart failure mildly reduced EF of 40%. Patient presented with non-ST elevation DE, atrial fibrillation with rapid ventricular response rate. Question of infection. Patient abdominal pain and a CTA was done on March 13, 2024 at 9 AM. The patient is here receiving amiodarone furosemide and antibiotics. 1. Acute kidney injury-baseline creatinine in February 2024 was 1.3 mg/dL. The patient presented between March 12 and the 10/12/2023 creatinine was up to 1.5 mg on admission by the afternoon of March 13 creatinine was 2.1 creatinine is rapidly rising up to 3.5 mg/dL this morning and since then patient had a cardiac arrest. Patient's ERICK is likely ATN in the setting of moderate to high- grade narrowing involving the origin of a single left renal artery. The patient has failed diuresis. I had a long discussion with the family both the patient sister and daughter and granddaughter that the patient is in multiorgan failure with worsening cardiac disease and his not currently a candidate for transplantation or cardiac catheterization as per cardiology. The patient currently has vent dependent respiratory failure increased LFTs acute kidney injury and requires 2 pressors with lowering of EF. Her prognosis is poor to guarded. I explained that she is not currently a candidate for intermittent hemodialysis however if they would want to be aggressive we can consider doing CRRT. The family is not sure if they would want to do dialysis. I will discussing it back to me. For now we will repeat ABG CPK and chemistries and monitor. Consider bicarbonate drip. 2. Lactic acidosis from cardiac arrest repeat ABG and see where her current blood gas and lactate levels are. 3. Increased LFTs are noted starting March 13. And worsened today with cardiac arrest. Also note LDH of 1160 4. Positive amphetamines in urine marijuana Plan See above. Case was discussed in detail with the nurse to patient's family and with Dr. Tracey The patient was seen and examined using audiovisual equipment with the aid of a nurse. The patient's family consented to telehealth Consult Attestations 2 Medical Necessity Statement: Multiorgan failure metabolic acidosis Time Spent in Patient Care: Greater than 35 minutes (>than 50% of time spent in counselling and/or direct pt care on unit) . Coding Level of Care Code Acute Code for Chg Fwd Diagnoses ERICK (acute kidney injury) N17.9
--- NOTE | 2024-03-14 11:15 | P.CONIM_ITS ---
Providers/Reason For Consult 2 Consulting Physician/Specialty*: Dr. Ever Hernandez, DO/General Surgery Reason for Consult*: Abdominal pain Attending Physician: Amadeo Fregoso Primary Care Provider: Justin Fajardo MD History of Present Illness History of Present Illness Ana Alonso is a 63 year old female who originally presented to the hospital with chest pain. Her urine was positive for amphetamines with a history of methamphetamine use. She began to decompensate and become mottled and then having abdominal pain. She coded yesterday and underwent CPR. She is currently on multiple pressors, intubated and sedated. HPI and review of systems are limited secondary to this Review of Systems 2 General: Reports: ROS unobtainable due to endotracheal tube Medications/Allergies Home Medications Medication Instructions Recorded Confirmed Last Taken Type triamcinolone acetonide 0.1 % See Rx Instructions .Route 02/09/21 03/13/24 03/12/24 Rx topical cream .COMPLEX #90 grams cyclobenzaprine 10 mg tablet See Rx Instructions .Route 11/28/21 03/13/24 Unknown Rx .COMPLEX #75 tabs clonazepam 1 mg tablet 1 mg PO TID PRN anxiety 30 days 02/09/24 03/13/24 Unknown Rx #75 tabs albuterol sulfate 90 mcg/actuation See Rx Instructions .Route 02/20/24 03/13/24 Unknown Rx aerosol inhaler .COMPLEX #8.5 grams metolazone 5 mg tablet 5 mg PO DAILY #14 tabs 02/23/24 03/13/24 03/12/24 Rx furosemide 40 mg tablet See Rx Instructions .Route 03/03/24 03/13/24 Unknown Rx .COMPLEX #90 tabs omeprazole 40 mg capsule,delayed 40 mg PO DAILY 03/13/24 03/13/24 03/12/24 History release potassium chloride 10 mEq 10 meq PO BID #180 tabs 03/13/24 Unknown Rx tablet,extended release Allergies Allergy/AdvReac Type Severity Reaction Status Date / Time No Known Allergies Allergy Verified 03/12/24 22:13 Current Medications Generic Name Dose Route Start Last Admin Trade Name Freq PRN Reason Stop Dose Admin Aspirin 81 mg 03/13/24 09:00 03/13/24 10:12 Aspirin 81 Mg Ec Tablet PO Not Given DAILY SKINNY Atorvastatin Calcium 80 mg 03/13/24 09:00 03/13/24 10:12 Atorvastatin 40 Mg Tablet PO Not Given DAILY SKINNY Clonazepam 1 mg 03/13/24 03:19 03/13/24 03:51 Clonazepam 1 Mg Tablet PO 1 mg TID PRN Administration ANXIETY Clopidogrel Bisulfate 75 mg 03/13/24 09:00 03/13/24 10:13 Clopidogrel 75 Mg Tablet PO Not Given DAILY SKINNY Furosemide 20 mg 03/13/24 09:00 03/13/24 07:32 Furosemide 10 Mg/Ml Sdv 2ml IVP 20 mg DAILY SKINNY Administration Hydromorphone HCl 0.4 mg 03/13/24 13:50 03/14/24 01:11 Hydromorphone 1 Mg/Ml Inj 1 Ml IVP 0.4 mg Q2H PRN Administration SEVERE PAIN Amiodarone HCl/Dextrose 360 mg in 200 mls @ 0 mls/hr 03/13/24 02:30 03/14/24 05:12 Nexterone IV 0 mg/min .Q0M SKINNY 0 mls/hr Titration Protocol Per Protocol Dexmedetomidine/Sodium Chloride 400 mcg in 100 mls @ 0 mls/hr 03/13/24 11:00 03/14/24 03:37 Precedex IV 0.2 mcg/kg/hr .Q0M SKINNY 4.98 mls/hr Titration Protocol Per Protocol Piperacillin Sod/Tazobactam 50 mls @ 12.5 mls/hr 03/13/24 11:45 03/14/24 03:58 Sod 3.375 gm/ Sodium Chloride IV Infused Q12H SKINNY Infusion Protocol Norepinephrine Bitartrate 4 mg in 250 mls @ 0 mls/hr 03/13/24 17:30 03/14/24 06:24 Levophed IV 12 mcg/min .Q0M SKINNY 45 mls/hr Administration Protocol Per Protocol Furosemide 100 mg/ Sodium 50 mls @ 0 mls/hr 03/13/24 18:30 03/14/24 05:12 Chloride IV 0 mg/hr .Q0M SKINNY 0 mls/hr Titration Protocol Per Protocol Epinephrine HCl 2.5 mg/ Sodium 252.5 mls @ 0 mls/hr 03/14/24 05:30 03/14/24 10:27 Chloride IV 9 mcg/min .Q0M SKINNY 54.54 mls/hr Administration Protocol Per Protocol Heparin Sodium/Sodium Chloride 25,000 unit in 500 mls @ 0 mls/hr 03/14/24 05:45 03/14/24 05:42 Heparin Drip IV 14.06 unit/kg/hr CONT SKINNY 28 mls/hr Administration Protocol Per Protocol Fentanyl 1,000 mcg in 100 mls @ 0 mls/hr 03/14/24 05:45 03/14/24 06:11 Sublimaze IV 50 mcg/hr .Q0M SKINNY 5 mls/hr Titration Protocol Per Protocol Midazolam HCl 100 mg in 100 mls @ 0 mls/hr 03/14/24 10:30 03/14/24 10:38 Versed IV 1 mg/hr .Q0M SKINNY 1 mls/hr Administration Protocol Per Protocol Morphine Sulfate 15 mg 03/13/24 00:02 03/14/24 00:51 Morphine Ir 15 Mg Tablet PO 15 mg Q6H PRN Administration MODERATE PAIN Ondansetron HCl 4 mg 03/13/24 00:02 03/14/24 00:47 Ondansetron 2 Mg/Ml Sdv 2 Ml IVP 4 mg Q6H PRN Administration NAUSEA AND VOMITING Potassium Chloride 40 meq 03/13/24 09:00 03/13/24 07:36 Potassium Chloride Er 20 Meq Tablet PO 40 meq DAILY SKINNY Administration PFSH Acute 2 PFSH: Medical History Anxiety Chronic laryngitis COPD (chronic obstructive pulmonary disease) Venous (peripheral) insufficiency Depression Psoriasis GERD (gastroesophageal reflux disease) Surgical History History of total hysterectomy History of cholecystectomy Social History Smoking and tobacco/nicotine status: never used tobacco/nicotine Alcohol intake: never Substance/Drug Use: current Vitals/I&O/Wt Last Vital Signs Temp 97.9 F 03/14/24 08:00 Pulse 73 03/14/24 08:45 Resp 20 H 03/14/24 10:38 BP 115/51 03/14/24 08:45 Pulse Ox 100 03/14/24 10:38 O2 Del Method Mechanical Ventilation 03/14/24 08:45 O2 Flow Rate 5 03/14/24 01:15 FiO2 75 03/14/24 10:38 03/13/24 03/14/24 03/14/24 22:59 06:59 14:59 Intake Total 365.272 / 1187.183 736.437 / 1923.620 197.556 / 197.556 Output Total 675 / 675 75 / 750 Balance -309.728 / 512.183 661.437 / 1173.620 197.556 / 197.556 Weight last 48 hrs Weight 219 lb 8 oz Weight 219 lb 8 oz Weight 220 lb Physical Exam 2 Narrative: General : Patient is well developed , no acute distress, intubated, sedated Head : Normal cephalic, a-traumatic. Ears : Pinnae and external canal are normal. Hearing is normal. Eyes : PERRLA, Sclera and injection are normal. No conjunctival discharge. Nose : Mucous membranes are without erythema. Throat : buccal mucosa is normal, gums are without significant recession or hypertrophy. Lungs : Equal chest rise bilaterally, no use of accessory muscles, trachea is midline. Cor : Rate and rhythm are normal. Abdomen : Soft, distended, no grimace to palpation, no g/r/m Extremities : No edema, no cyanosis or clubbing, dorsalis pedis pulses are present bilaterally, non-tender to palpation of calves. Upper extremities are normal bilaterally. Back : non-tender to palpation, no CVA tenderness. Urinary Catheter Management: Yoder: Cath Placed During This Visit: yes Reason for Continuing Indwelling Catheter: Accurate Measurement of Urinary Output in Critically Ill Patients Urinary Catheter Date of Insertion: 03/13/24 Urinary Catheter Time of Insertion: 08:37 Data 03/14/24 05:43 03/14/24 06:23 Micro: Microbiology 03/13/24 13:00 Blood Culture - Preliminary Blood SPECIMEN COLLECTED 03/13/24 13:06 Blood Culture - Preliminary Blood SPECIMEN COLLECTED A&P Assessment and plan (1) Multiorgan failure: (2) Amphetamine abuse: Plan Patient has a poor prognosis Nephrology is going to be consulted for possible HD catheter use, I am available placement if needed I do not see any abdominal pathology requiring surgical intervention at this time Medical management per hospitalist Coding Level of Care Code 92079 Diagnoses Multiorgan failure Amphetamine abuse F15.10
[2024-03-14] MEDS: sodium bicarbonate 150 MEQ in dextrose 5% 1,000 ML 100 MEQ IV ×2 (11:17→22:43)
[2024-03-14 12:10] LABS: Basophils # 0.1 10^3/uL (0.0-0.1); Basophils % 0.5 %; Hematocrit 46.2 % (36-47); Lymphocytes # 1.3 10^3/uL (0.8-4.8); Lymphocytes % 5.7 %; Mean Corpuscular HGB Conc 30.3 g/dL (30-55); Mean Corpuscular Hemoglobin 31.4 pg (27-33); Mean Corpuscular Volume 103.6 fl (85-98); Monocytes # 0.8 10^3/uL (0.2-0.9); Monocytes % 3.5 %; Neutrophils # 19.81 10^3/uL (1.8-7.7); Neutrophils % 89.1 %; Nucleated Red Blood Cells # 0.1 /100WBC; Nucleated Red Blood Cells % 0.4 %; Platelet Count 204 10^3/cmm (157-399); Red Blood Count 4.46 10^6/uL (3.85-5.65); White Blood Count 22.23 10^3/uL (3.29-11.43)
--- NOTE | 2024-03-14 12:24 | P.PN_ITS ---
Subjective 2 Subjective: Currently resting, on sedation, can ventilation. Intermittent episodes where she sits up confused in bed. Vitals/I&O/Wt Last Vital Signs Temp 97.9 F 03/14/24 08:00 Pulse 73 03/14/24 08:45 Resp 20 H 03/14/24 10:38 BP 115/51 03/14/24 08:45 Pulse Ox 100 03/14/24 10:38 O2 Del Method Mechanical Ventilation 03/14/24 08:45 O2 Flow Rate 5 03/14/24 01:15 FiO2 75 03/14/24 10:38 03/13/24 03/14/24 03/14/24 22:59 06:59 14:59 Intake Total 365.272 / 1187.183 736.437 / 1923.620 422.556 / 422.556 Output Total 675 / 675 75 / 750 Balance -309.728 / 512.183 661.437 / 1173.620 422.556 / 422.556 Weight last 48 hrs Weight 99.564 kg Weight 99.564 kg Weight 99.79 kg Physical Exam 2 Const: GENERAL APPEARANCE: patient mechanically ventilated Neck/C-Spine: COMMON NORMALS: no JVD Resp: COMMON NORMALS: normal respiratory effort and clear to auscultation bilaterally AUSCULTATION: clear to auscultation bilaterally Cardio: COMMON NORMALS: no JVD, regular rhythm, S1 normal heart sound present, S2 normal heart sound present and No murmurs present (Cardio) RHYTHM: regular rhythm HEART SOUNDS: S1 normal heart sound present and S2 normal heart sound present GI: COMMON NORMALS: Normal to inspection, nondistended, normoactive bowel sounds present and Soft to palpation PALPATION: Yes Soft to palpation Extremity: COMMON NORMALS: no joint enlargement and no pedal edema OTHER: Cool to touch hands and feet. Neuro: COMMON NORMALS: moves all extremities Skin: COMMON NORMALS: no rashes or lesions noted GENERAL SKIN EXAM: no rashes or lesions noted Urinary Catheter Management: Yoder: Cath Placed During This Visit: yes Reason for Continuing Indwelling Catheter: Accurate Measurement of Urinary Output in Critically Ill Patients Urinary Catheter Date of Insertion: 03/13/24 Urinary Catheter Time of Insertion: 08:37 Data 03/14/24 11:56 03/14/24 06:23 Micro: Microbiology 03/13/24 13:00 Blood Culture - Preliminary Blood SPECIMEN COLLECTED 03/13/24 13:06 Blood Culture - Preliminary Blood SPECIMEN COLLECTED A&P Assessment and plan (1) Anxiety: (2) Right-sided heart failure syndrome: Qualifiers: Heart failure chronicity: acute on chronic Qualified Code(s): I50.813 - Acute on chronic right heart failure (3) Chest pain: (4) Atrial fibrillation with rapid ventricular response: (5) Venous (peripheral) insufficiency: (6) GERD (gastroesophageal reflux disease): Qualifiers: Esophagitis presence: without esophagitis Qualified Code(s): K21.9 - Gastro-esophageal reflux disease without esophagitis (7) COPD (chronic obstructive pulmonary disease): Qualifiers: COPD type: chronic bronchitis Chronic bronchitis type: simple Qualified Code(s): J41.0 - Simple chronic bronchitis (8) Psoriasis: (9) Non-STEMI (non-ST elevated myocardial infarction): Plan Shock: Shock with multiorgan dysfunction progressing to failure, Continues to require pressors, 12 mcg norepinephrine, epinephrine was added overnight. He has not produced any urine. Progressively worsening transaminitis up to 3800 AST overnight, 2151 ALT overnight, status post PEA arrest early this morning, subsequently additional worsening transaminitis up to 9135 AST, 5049 ALT, INR yesterday with worsening up to 1.56, this morning up to 2.36. ABG this morning 7.09/43.4/159. PEA arrest around 5:30 in the morning with 10 minutes CPR, epinephrine. Subsequently in sinus rhythm. Repeat limited TTE had been obtained, pending. Lactic acid up to 20.3. Discussed with cardiology. Consideration of SINCERE, although suspicion for dissection is low. Concern for low output failure with progressive nonischemic cardiomyopathy. Further discussed liver dysfunction and concern for possible acute liver failure with gastroenterology at [facility]. She would not be a candidate for transplantation. Currently with multiorgan dysfunction with worsening ERICK, renal failure, anuric overnight, acidemic, has been started on bicarb drip. Requested nephrology consultation, discussed with textile machine operator. Family had given consideration to CRRT. Further family on discussion and are in consensus in case of further cardiac arrest or in case of extubation, in the current situation not to repeat CPR and not to reintubate. Continue with life support currently, although also wanting to make sure she is not in discomfort or stress, wanting to make sure we continue with sedation. She has not had any significant Tylenol use, maybe once a week for headache. Ferritin elevated at 2130, but iron level is not elevated, saturation 25.7. Ceruloplasmin pending. Antimitochondrial, anti-smooth muscle antibodies pending. Noted early cirrhosis, fatty liver, remote history of alcohol but not currently. However, his per discussion with specialist and [facility] these are not likely contributing to acute liver failure. Currently this is likely combination substance use toxicity and shock liver. With developed leukocytosis but afebrile, continue. Antibiotic coverage with Zosyn. Follow-up blood cultures collected, discussed empirically treating with Zosyn for now. Does have liver cirrhosis, lower chance of SBP, only minimal ascites. Low-dose IV Dilaudid for pain. CHF: Acute systolic and diastolic decompensated CHF, has not produced urine despite Lasix drip. Acute encephalopathy: Acute metabolic encephalopathy, with multiple metabolic abnormalities with multiorgan dysfunction. Additionally substance intoxication versus withdrawal. Concern for low output failure, global hypoperfusion with progressively declining cardiac output. Was on Precedex yesterday, Dilaudid as needed for pain. Continue sedation today as per discussion with family. New onset A-fib with RVR: Has converted to sinus rhythm. Amiodarone was held transiently, cardiology further discussed with family amiodarone risks with liver disease. Risk of return into atrial fibrillation. Has continued on anticoagulation with switch to heparin drip, discussed with family risk of bleeding in setting of liver dysfunction. Monitor PTT. ERICK: Progressing to acute renal failure, creatinine up to 3.7, anuric overnight despite pressor support, despite Lasix drip. Discussed with textile machine operator. Appreciate consultation. Family had given further consideration to CVVHD. Repeat chemistry is requested. Possible liver cirrhosis: Nodular liver appearance on CT. No current alcohol use but remote history. Additionally fatty liver infiltration. Minimal ascites. Without thrombocytopenia, minimal hyponatremia. Minimal transaminitis. Check hepatitis panel. Further cardiac assessment as above. Hypokalemia: Replenish. Recheck chemistry, magnesium. Mild hypomagnesemia: Recheck magnesium. Non-STEMI Continues on aspirin, Plavix, anticoagulation has been switched to heparin drip. Monitor for risk of bleeding as per discussion with family. No beta-carey due to hypotension. Recent echo on 03/04 echo was done recently which showed 45 to 50% EF grade 1 diastolic function Venous's dermatitis, psoriasis: No significant edema of lower extremity Attestations 2 Medical Necessity Statement*: Continue admission for assessment and management of multiorgan dysfunction, low output failure with nonischemic cardiomyopathy, acute liver failure, renal failure, encephalopathy, CHF. Coding Level of Care Code Critical Care >/= 30 minutes Critical care time (in minutes): 55 The high probability of a clinically significant, sudden or life threatening deterioration, as referenced in this documentation, required my full and direct attention, intervention and personal management. The critical care time shown is in addition to time spent performing any reported separately billable procedures and includes the following: [x] Data and vital sign review and interpretation [x ] Patient assessment, examination and intervention [x] Medication orders and management [x] Patient/Family updates as able [x] Care Coordination and Documentation. Diagnoses Anxiety F41.9 Acute on chronic right-sided heart failure I50.813 Heart failure chronicity: acute on chronic Chest pain R07.9 Atrial fibrillation with rapid ventricular response I48.91 Venous (peripheral) insufficiency I87.2 Gastroesophageal reflux disease without esophagitis K21.9 Esophagitis presence: without esophagitis Simple chronic bronchitis J41.0 COPD type: chronic bronchitis Chronic bronchitis type: simple Psoriasis L40.9 Non-STEMI (non-ST elevated myocardial infarction) I21.4
[2024-03-14 12:27] LABS: Albumin Level 3.3 g/dL (3.5-5.2); Alkaline Phosphatase 202 U/L (35-105); Blood Urea Nitrogen 39 mg/dL (8-23); Calcium 8.2 mg/dL (8.5-10.5); Carbon Dioxide 10 mmol/L (22-29); Chloride 89 mmol/L (98-107); Creatinine Clr Calc Pharmacy 15.9862; Globulin 2.8 g/dL (1.3-4.6); Glomerular Filtration Rate 10.9 mL/min (90-130); Glucose 139 mg/dL (65-115); Magnesium 2.5 mg/dL (1.7-2.3); Osmolality Calculated 302 mOsm/kg (285-295); Sodium 140 mmol/L (136-145); Total Bilirubin 1.9 mg/dL (0.15-1.2); Total Protein 6.1 g/dL (6.6-8.7); Uric Acid 18.4 mg/dL (2.4-5.7)
[2024-03-14 12:49] LABS: Bilirubin Urine 1+ (Negative); Blood Urine 3+ (Negative); Glucose Urine UA Negative (Normal); Ketones Urine Negative (Negative); Leukocyte Esterase Urine 2+ (Negative); Nitrate Urine Positive (Negative); Protein Urine 3+ (Negative); Specific Gravity, Urine 1.029 (1.005-1.030); Urine Appearance Turbid (CLEAR)
[2024-03-14 12:52] LABS: Hepatitis B Core AB, Total Non-Reactive (Nonreactive); Hepatitis B Surface AB < 3.5 (11.5-1000); Hepatitis B Surface Antigen Non-Reactive (Nonreactive); Hepatitis C Virus Antibody Non-Reactive (Nonreactive)
[2024-03-14 12:56] LABS: Bacteria Urine 2+ /hpf; RBC Urine 25-40 /hpf (0-2); Squamous Epithelial Cell Urine 0-4 /hpf (0-5); UA Manual Slide Review YES; Urine Color Orange (Yellow); WBC Urine 15-25 /hpf (0-5)
[2024-03-14 12:57] LABS: Add Urine Culture? Yes; Coarse Granular Casts Urine 0-4 /lpf; Hyaline Casts Urine 15-25 /lpf
[2024-03-14 13:04] LABS: Glucose Point of Care 143 mg/dL (70-110)
[2024-03-14 13:05] LABS: Potassium, Radom Urine 74 mmol/L; Urine Creatinine 50 mg/dL (28-217); Urine Random Chloride 52 mmol/L; Urine Random Sodium 48 mmol/L
[2024-03-14 13:16] LABS: Alanine Aminotransferase > 8558 U/L (0-33); Anion Gap 44.5 (5-19); Aspartate Amino Transferase > 18321 U/L (0-32); Potassium 3.5 mmol/L (3.5-5.1)
[2024-03-14 13:17] LABS: Partial Thromboplastin Time > 250.0 SECONDS (23.9-36.7)
[2024-03-14 13:17] LABS: Creatine Phosphokinase 576 U/L (26-192); Phosphorus 11.1 mg/dL (2.5-4.5)
[2024-03-14 13:18] LABS: Urine Protein Random 323 mg/dL
[2024-03-14 13:30] LABS: Creatinine Urine, Random 50 mg/dL (28-217); Microalbum Creatinine Ratio Ur 2480 mg/dL (0-20); Microalbumin Random Urine 124 ug/dL (0-20)
[2024-03-14 13:40] LABS: Blood Gas Allen Test Pos; Blood Gas Operator Identificat BROMA; Blood Gas Sample Site Brachial, right; Blood Gas Sample Type Arterial; Blood Gas Tidal Volume 0.45; HCO3 ABG 9.8 mmol/L (22-26); Oxygen Device VENT; Potassium Level - ABG 3.7 mmol/L (3.5-5.0)
[2024-03-14 13:42] LABS: ABG PCO2 35.7 mmHg (35-45); Alveolar-Arterial Oxygen Gradi 44.7 mmHg (5-10); Arterial Blood Gas Hematocrit 43.3 % (37-47); Base Excess ABG -19.9 mmol/L (-2.0-2.0); Carboxyhemoglobin 0.4 %THgb (0.4-20.1); HGB O2 Sat 97.7 % (95-100); Ionized Calcium Level - ABG 0.9 mmol/L (1.1-1.4); Methemoglobin 0.1 % (0.4-1.5); Oxygen Saturation ABG 98.2; PO2 FiO2 Ratio Arterial Blood 186; Total Hemoglobin 14.1 g/dL (12-16)
[2024-03-14] MEDS: fentaNYL 1,000 MCG/100 ML BAG 12 MCG IV (13:42)
[2024-03-14] MEDS: piperacillin-tazobactam 3.375 GM in sodium chloride 0.9% (plus) 50 ML IV ×2 (13:43→23:32)
[2024-03-14 13:44] LABS: ABG PH Result 7.05 (7.35-7.45)
--- NOTE | 2024-03-14 15:41 | PC.NURSE ---
Spoke with patient's family this morning including Dr. Watts, Dr. Goff and Dr. Fregoso. Family was updated on patient's condition and Dr. Watts spoke with family about CRRT. Family declined CRRT at that time but said they would continue to think about it.
[2024-03-14 17:03] LABS: Partial Thromboplastin Time 48.5 SECONDS (23.9-36.7)
[2024-03-14 17:12] LABS: Glucose Point of Care 168 mg/dL (70-110)
[2024-03-14 17:24] LABS: Albumin Level 3.1 g/dL (3.5-5.2); Blood Urea Nitrogen 40 mg/dL (8-23); Calcium 7.6 mg/dL (8.5-10.5); Carbon Dioxide 11 mmol/L (22-29); Chloride 88 mmol/L (98-107); Creatinine Clr Calc Pharmacy 17.2483; Glomerular Filtration Rate 11.9 mL/min (90-130); Glucose 187 mg/dL (65-115); Magnesium 2.6 mg/dL (1.7-2.3); Sodium 139 mmol/L (136-145)
[2024-03-14 17:28] LABS: Anion Gap 43.6 (5-19); Potassium 3.6 mmol/L (3.5-5.1)
[2024-03-14 17:29] LABS: Lactate (Lactic Acid level) 22.6 mmol/L (0.5-2.2); Phosphorus 11.2 mg/dL (2.5-4.5)
--- NOTE | 2024-03-14 17:57 | PC.NURSE ---
ptt came back at 48.5 called [facility]- order to restart heparin gtt at previous rate of 28ml/hr and to not give bolus. Also notified of critical phos and lactate.
--- NOTE | 2024-03-14 18:08 | PC.NURSE ---
Called Dr. Watts to notify of critical phosphorous of 11.2. Family is still refusing CRRT at this point. Patient has levophed and epi gtt still going and has sodium bicarb in D5W running. No new orders at this time.
--- NOTE | 2024-03-14 19:00 | PC.NURSE ---
Precedex titration: Upon arrival to shift precedex was paused, MAR updated to reflect dose.
--- NOTE | 2024-03-14 21:26 | XRR_ITS ---
PROCEDURE INFORMATION: Exam: XR Chest Exam date and time: 03/14/2024 10:08 PM Age: 63 years old Clinical indication: Device placement; Ng tube; Patient HX: Check S/P og placement; Additional info: Check og tube placement TECHNIQUE: Imaging protocol: Radiologic exam of the chest. Views: 1 view. COMPARISON: CR XR chest 1V portable [id number] 03/14/2024 5:29 AM FINDINGS: Tubes, catheters and devices: Endotracheal tube tip is approximately 2.2 cm above the myah. Orogastric tube below the diaphragm and off the field of view. Similar positioning of the left arm PICC. Lungs: Similar interstitial coarsening bilaterally with hazy ground-glass opacities. Pleural spaces: Unremarkable. No pleural effusion. No pneumothorax. Heart/Mediastinum: Stable cardiomegaly. Bones/joints: Unremarkable. XR/XR chest 1V portable [id number] IMPRESSION: 1. Slight interval retraction of the endotracheal tube with the tip about 2.2 cm above the myah. 2. Orogastric tube courses below the diaphragm and off the field of view. 3. Remainder stable.
[2024-03-14] MEDS: fentaNYL 1,000 MCG/100 ML BAG 12.5 MCG IV (22:12)
[2024-03-14] MEDS: chlorhexidine gluconate 4% Btl 118 mL 1 APPLIC TOPICAL (23:32)
[2024-03-15] VITALS (96 sets, daily range): BP systolic 63–124; BP diastolic 45–77; PULSE 84–121; RESP 18; TEMP 36.7–37.8; O2SAT 84–100; BMI 39.4
[2024-03-15 01:28] LABS: Partial Thromboplastin Time 52.3 SECONDS (23.9-36.7)
[2024-03-15] MEDS: heparin 5,000 unit/mL INJ 1 mL IVP (01:35)
[2024-03-15] MEDS: norepinephrine 4 MG/250 ML BAG 45 MG IV (03:16)
--- NOTE | 2024-03-15 04:14 | PC.NURSE ---
Bloody stool: Patient had two liquid stools that were slightly red in color, Dr Nieto notified and gave order for a fecal occult test. Fecal occult resulted positive, Dr. Nieto informed this nurse to monitor patient H&H and continue heparin drip.
[2024-03-15] MEDS: heparin drip 25,000 UNIT/500 ML PREMIX 30 UNIT IV (04:20)
[2024-03-15 05:34] LABS: Basophils # 0.1 10^3/uL (0.0-0.1); Basophils % 0.4 %; Eosinophils % 0.1 %; Hematocrit 38.1 % (36-47); Lymphocytes # 0.7 10^3/uL (0.8-4.8); Lymphocytes % 5.2 %; Mean Corpuscular HGB Conc 33.9 g/dL (30-55); Mean Corpuscular Hemoglobin 31.5 pg (27-33); Mean Corpuscular Volume 93.2 fl (85-98); Mean Platelet Volume 11.1 fL (7.4-10.4); Monocytes # 0.2 10^3/uL (0.2-0.9); Monocytes % 1.2 %; Neutrophils # 12.47 10^3/uL (1.8-7.7); Neutrophils % 91.1 %; Nucleated Red Blood Cells # 0.1 /100WBC; Nucleated Red Blood Cells % 0.7 %; Platelet Count 103 10^3/cmm (157-399); Red Blood Count 4.09 10^6/uL (3.85-5.65); Red Cell Distribution Width 14.8 % (12.1-15.1)
[2024-03-15] MEDS: fentaNYL 1,000 MCG/100 ML BAG 12.5 MCG IV (05:43)
[2024-03-15 05:50] LABS: Albumin Level 2.6 g/dL (3.5-5.2); Alkaline Phosphatase 201 U/L (35-105); Blood Urea Nitrogen 46 mg/dL (8-23); Calcium 6.4 mg/dL (8.5-10.5); Carbon Dioxide 27 mmol/L (22-29); Chloride 90 mmol/L (98-107); Creatinine Clr Calc Pharmacy 15.8963; Globulin 2.5 g/dL (1.3-4.6); Glomerular Filtration Rate 10.3 mL/min (90-130); Glucose 106 mg/dL (65-115); Osmolality Calculated 298 mOsm/kg (285-295); Sodium 138 mmol/L (136-145); Total Bilirubin 3.4 mg/dL (0.15-1.2); Total Protein 5.1 g/dL (6.6-8.7)
[2024-03-15 05:51] LABS: Anion Gap 24.6 (5-19); Potassium 3.6 mmol/L (3.5-5.1)
[2024-03-15] MEDS: norepinephrine 4 MG/250 ML BAG 75 MG IV ×2 (07:42→10:53)
--- NOTE | 2024-03-15 07:49 | PM.PN ---
Subjective Subjective: Patient remains in the ICU. She is down to 1 pressor. FiO2 requirements are up to 85%. She has multiorgan failure. Medications: Reviewed: Yes Medication Review Details: Current Medications Acetaminophen (Acetaminophen 500 Mg Tablet) 500 mg PO Q4H PRN PRN Reason: fever Albuterol/Ipratropium (Ipratropium-Albuterol 3 Ml Neb) 3 ml INHALATION Q6H PRN PRN Reason: SHORTNESS OF BREATH Alteplase, Recombinant (Alteplase 1 Mg/Ml Sdv 2 Ml) 0 mg INTRACATH Q2H PRN; Protocol PRN Reason: Poor Catheter Flow/ Clotted Catheter Aspirin (Aspirin 81 Mg Ec Tablet) 81 mg PO DAILY SKINNY Last Admin: 03/14/24 12:31 Dose: Not Given Atorvastatin Calcium (Atorvastatin 40 Mg Tablet) 80 mg PO DAILY SKINNY Last Admin: 03/14/24 12:31 Dose: Not Given CRRT Dialysis Solution (Prismasol Bgk 4/2.5 - 5,000 Ml Bag) 5,000 ml CRRT CONT SKINNY; Protocol Last Admin: 03/14/24 21:41 Dose: Not Given CRRT Dialysis Solution (Prismasol Bgk 4/2.5 - 5,000 Ml Bag) 5,000 ml CRRT CONT SKINNY; Protocol Last Admin: 03/14/24 21:41 Dose: Not Given CRRT Dialysis Solution (Prismasol Bgk 4/2.5 - 5,000 Ml Bag) 5,000 ml CRRT CONT SKINNY; Protocol Last Admin: 03/14/24 21:41 Dose: Not Given Chlorhexidine Gluconate (Chlorhexidine Gluconate 4% Btl 118 Ml) 1 applic TOPICAL Q24H SKINNY Last Admin: 03/14/24 23:32 Dose: 1 applic Clonazepam (Clonazepam 1 Mg Tablet) 1 mg PO TID PRN PRN Reason: ANXIETY Last Admin: 03/13/24 03:51 Dose: 1 mg Clopidogrel Bisulfate (Clopidogrel 75 Mg Tablet) 75 mg PO DAILY SKINNY Last Admin: 03/14/24 12:31 Dose: Not Given Furosemide (Furosemide 10 Mg/Ml Sdv 2ml) 20 mg IVP DAILY SKINNY Last Admin: 03/13/24 07:32 Dose: 20 mg Heparin Sodium (Porcine) (Heparin 5,000 Unit/Ml Inj 1 Ml) 0 unit IVP PRN PRN; Protocol PRN Reason: Heparin Weight Based Protocol -Subsequent Bolus Last Admin: 03/15/24 01:35 Dose: 2,000 unit Heparin Sodium (Porcine) (Heparin Lock Flush 500 Unit/5 Ml Syringe) 500 unit IV PRN PRN PRN Reason: At CRRT disconnect Heparin Sodium (Porcine) (Heparin, Porcine 1,000 Unit/Ml Inj 10 Ml) 1,000 unit CRRT PROTOCOL PRN; Protocol PRN Reason: Heparin CRRT subsequent bolus Protocol Hydromorphone HCl (Hydromorphone 1 Mg/Ml Inj 1 Ml) 0.4 mg IVP Q2H PRN PRN Reason: SEVERE PAIN Last Admin: 03/14/24 01:11 Dose: 0.4 mg Amiodarone HCl/Dextrose (Nexterone) 360 mg in 200 mls @ 0 mls/hr IV .Q0M SKINNY; Protocol Last Titration: 03/14/24 05:12 Dose: 0 mg/min, 0 mls/hr Dexmedetomidine/Sodium Chloride (Precedex) 400 mcg in 100 mls @ 0 mls/hr IV .Q0M SKINNY; Protocol Last Titration: 03/14/24 19:00 Dose: 0 mcg/kg/hr, 0 mls/hr Piperacillin Sod/Tazobactam (Sod 3.375 gm/ Sodium Chloride) 50 mls @ 12.5 mls/hr IV Q12H SKINNY; Protocol Last Infusion: 03/15/24 04:32 Dose: Infused Norepinephrine Bitartrate (Levophed) 4 mg in 250 mls @ 0 mls/hr IV .Q0M [facility]; Protocol Last Admin: 03/15/24 07:42 Dose: 20 mcg/min, 75 mls/hr Furosemide 100 mg/ Sodium (Chloride) 50 mls @ 0 mls/hr IV .Q0M [facility]; Protocol Last Titration: 03/14/24 05:12 Dose: 0 mg/hr, 0 mls/hr Epinephrine HCl 2.5 mg/ Sodium (Chloride) 252.5 mls @ 0 mls/hr IV .Q0M [facility]; Protocol Last Titration: 03/15/24 05:37 Dose: 0 mcg/min, 0 mls/hr Heparin Sodium/Sodium Chloride (Heparin Drip) 25,000 unit in 500 mls @ 0 mls/hr IV CONT SKINNY; Protocol Last Admin: 03/15/24 04:20 Dose: 15.07 unit/kg/hr, 30 mls/hr Fentanyl (Sublimaze) 1,000 mcg in 100 mls @ 0 mls/hr IV .Q0M [facility]; Protocol Last Admin: 03/15/24 05:43 Dose: 125 mcg/hr, 12.5 mls/hr Sodium Bicarbonate 150 meq/ (Dextrose) 1,150 mls @ 100 mls/hr IV .[id number] SKINNY Last Admin: 03/14/24 22:43 Dose: 100 mls/hr Midazolam HCl (Versed) 100 mg in 100 mls @ 0 mls/hr IV .Q0M [facility]; Protocol Last Titration: 03/14/24 21:30 Dose: 3 mg/hr, 3 mls/hr Heparin Sodium (Porcine) 20, (000 unit/ N/A) 20 mls @ 0 mls/hr CRRT .Q0M [facility]; Protocol Lanolin (Lanolin Oint 7 Gm) 1 applic TOPICAL PRN PRN PRN Reason: DRYNESS Morphine Sulfate (Morphine Ir 15 Mg Tablet) 15 mg PO Q6H PRN PRN Reason: MODERATE PAIN Last Admin: 03/14/24 00:51 Dose: 15 mg Ondansetron HCl (Ondansetron 2 Mg/Ml Sdv 2 Ml) 4 mg IVP Q6H PRN PRN Reason: NAUSEA AND VOMITING Last Admin: 03/14/24 00:47 Dose: 4 mg Potassium Chloride (Potassium Chloride Er 20 Meq Tablet) 40 meq PO DAILY [facility] Last Admin: 03/14/24 13:34 Dose: Not Given Sodium Chloride (Sodium Chloride 0.9% 1,000 Ml Bag) 1,000 - 7,000 ml CRRT PRN PRN PRN Reason: For priming CRRT Machine Vitals/I&O/Wt Last Vital Signs Temp 99.0 F 03/15/24 04:30 Pulse 100 03/15/24 06:00 Resp 18 03/15/24 03:58 BP 83/61 03/15/24 04:30 Pulse Ox 95 03/15/24 04:30 O2 Del Method Mechanical Ventilation 03/15/24 04:30 O2 Flow Rate 65 03/14/24 16:00 FiO2 85 03/15/24 04:30 03/14/24 03/15/24 03/15/24 22:59 06:59 14:59 Intake Total 2487.698 / 3173.171 985.067 / 4158.238 55 / 55 Output Total 65 / 65 Balance 2422.698 / 3108.171 985.067 / 4093.238 55 / 55 Weight last 48 hrs Weight 107.5 kg Physical Exam Narrative: Patient remains on Levophed, off of epinephrine she is on the vent requiring FiO2 of 85%. She is awake and responsive. HEENT is normocephalic atraumatic. Neck is supple Lungs have rhonchi and crackles bilaterally. Heart is regular with systolic murmur. Abdomen is soft positive bowel sounds. Extremities have poor pulses and no significant edema. Neuro she is sedated however she awakens and moves. Urinary Catheter Management: Yoder: Cath Placed During This Visit: yes Reason for Continuing Indwelling Catheter: Accurate Measurement of Urinary Output in Critically Ill Patients Urinary Catheter Date of Insertion: 03/13/24 Urinary Catheter Time of Insertion: 08:37 Data 03/15/24 04:56 03/15/24 04:56 Micro: Microbiology 03/15/24 02:17 Occult Blood (FIT) - Final Stool Routine Collection 03/13/24 13:00 Blood Culture - Preliminary Blood NEGATIVE TO DATE 03/13/24 13:06 Blood Culture - Preliminary Blood NEGATIVE TO DATE A&P Assessment and plan (1) ERICK (acute kidney injury): 63-year-old lady with history of amphetamine use, patient had heart failure mildly reduced EF of 40%. Patient presented with non-ST elevation CT, atrial fibrillation with rapid ventricular response rate. Question of infection. Patient abdominal pain and a CTA was done on March 13, 2024 at 9 AM. 1. Acute kidney injury-baseline creatinine in February 2024 was 1.3 mg/dL. The patient presented between night of March 12 and the 10/12/2023 creatinine was up to 1.5 mg on admission by the afternoon of March 13 creatinine was 2.1 creatinine is rapidly rising up to 4.3 mg/dL this morning Patient's ERICK is likely ATN in the setting of moderate to high-grade narrowing involving the origin of a single left renal artery. The patient has failed diuresis. -as of now, the family does not want to attmept dialysis. IF they change their minds, and they understand that she has a very poor prognosis, we can attempt dialysis vs CRRT based on availability. Risk of bleeding with line placement is high 2. status post cardiac arrest on 03/14/24. 3. VDRF 4. cardiogenic shock as per Dr Goff 5. Shocked liver. inr 5, ast/ [place] [address] and 8558 6. phos of 11 from erick 7. Lactic acidosis from cardiac arrest repeat ABG and see where her current blood gas and lactate levels are. 8. Positive amphetamines in urine marijuana Seen and examined using audiovisual equipment with the aid of a nurse. Discussed in detail with the nurse and with her physician Plan See above. Case was discussed in detail with the nurse to patient's family and with Dr. Tracey The patient was seen and examined using audiovisual equipment with the aid of a nurse. The patient's family consented to telehealth Attestations Medical Necessity Statement*: multi-organ failure Time Spent in Patient Care: Greater than 35 minutes Coding Level of Care Code Acute Code for [facility] Diagnoses ERICK (acute kidney injury) N17.9
[2024-03-15 08:14] LABS: Alanine Aminotransferase > 8558 U/L (0-33); Aspartate Amino Transferase > 18321 U/L (0-32)
[2024-03-15 08:15] LABS: ABG PCO2 42.5 mmHg (35-45); ABG PH Result 7.42 (7.35-7.45); Alveolar-Arterial Oxygen Gradi 60.5 mmHg (5-10); Arterial Blood Gas Hematocrit 42.5 % (37-47); Base Excess ABG 2.6 mmol/L (-2.0-2.0); Blood Gas Allen Test Pos; Blood Gas Operator Identificat GD; Blood Gas Sample Site Radial, right; Blood Gas Sample Type Arterial; Blood Gas Tidal Volume 0.46; Carboxyhemoglobin 0.8 %THgb (0.4-20.1); HCO3 ABG 27.5 mmol/L (22-26); Ionized Calcium Level - ABG 0.8 mmol/L (1.1-1.4); Methemoglobin 1.3 % (0.4-1.5); Oxygen Device VENT; PO2 ABG 83.8 mmHg (80.0-100.0); PO2 FiO2 Ratio Arterial Blood 98; Potassium Level - ABG 3.2 mmol/L (3.5-5.0); Total Hemoglobin 13.9 g/dL (12-16)
[2024-03-15] MEDS: EPINEPHrine 2.5 MG in sodium chloride 0.9% 250 ML 24.24 MG IV (08:39)
--- NOTE | 2024-03-15 09:00 | PC.NURSE ---
Dr. Cochran called for a patient update and reviewed labs and current drips infusing. Orders given to discontinue bicarb drip and put heparin drip on hold. Stopped heparin drip and bicarb drip as ordered.
[2024-03-15] MEDS: clopidogrel 75 mg Tablet PO (09:19)
[2024-03-15] MEDS: aspirin 81 mg EC Tablet PO (09:19)
[2024-03-15] MEDS: hydrocortisone 100 mg/2 mL SDV IVP ×3 (09:21→20:18)
[2024-03-15] MEDS: CLONazepam 1 mg Tablet PO ×3 (09:21→20:18)
--- NOTE | 2024-03-15 10:50 | XR_ITS ---
WS: [id number] Exam: XR chest 1V portable [id number] Date/Time of Exam: 03/15/2024 10:52 AM Reason For Exam: increase in O2 needs Comparison with the latest exam 03/14/2024 at 10:08 p.m. The lungs remain fully expanded. Less pulmonary vascular congestion than noted previously. Mild cardi ac enlargement unchanged. ET tube ends about 2 cm above the myah unchanged in position. An enteric tube extends below the diaphragm but the tip is out of the [id number]. Bony structures are intact. Monitoring leads superimpose the chest. XR/XR chest 1V portable [id number] IMPRESSION: 1. Decreased pulmonary vascular congestion than noted previously. Stable cardio megaly. 2. ET tube and enteric tube unchanged in location.
[2024-03-15 11:09] LABS: Reflex FDPQ test REFLEX FDP QUEST TES
[2024-03-15 11:10] LABS: Basophils # 0.1 10^3/uL (0.0-0.1); Basophils % 0.5 %; Eosinophils % 0.1 %; Hematocrit 40.3 % (36-47); Lymphocytes # 0.6 10^3/uL (0.8-4.8); Lymphocytes % 3.8 %; Mean Corpuscular HGB Conc 34.5 g/dL (30-55); Mean Corpuscular Hemoglobin 31.4 pg (27-33); Mean Platelet Volume 11.7 fL (7.4-10.4); Monocytes # 0.4 10^3/uL (0.2-0.9); Monocytes % 2.3 %; Neutrophils # 15.17 10^3/uL (1.8-7.7); Neutrophils % 90.8 %; Nucleated Red Blood Cells # 0.1 /100WBC; Nucleated Red Blood Cells % 0.5 %; Platelet Count 105 10^3/cmm (157-399); Red Blood Count 4.43 10^6/uL (3.85-5.65)
[2024-03-15] MEDS: albumin 25 G/100 ML BAG 60 G IV ×2 (11:13→18:33)
[2024-03-15 11:23] LABS: Fibrinogen 284 mg/dL (174-498)
--- NOTE | 2024-03-15 11:27 | PC.NURSE ---
Dr. Cochran to bedside, discussed plan of care and and care options with family. Family left to talk with themselves to decide if they want to start CRRT on this patient.
[2024-03-15 11:28] LABS: Albumin Level 2.9 g/dL (3.5-5.2); Alkaline Phosphatase 285 U/L (35-105); Blood Urea Nitrogen 50 mg/dL (8-23); Calcium 6.4 mg/dL (8.5-10.5); Carbon Dioxide 25 mmol/L (22-29); Chloride 88 mmol/L (98-107); Creatinine Clr Calc Pharmacy 15.1898; Globulin 2.5 g/dL (1.3-4.6); Glomerular Filtration Rate 9.8 mL/min (90-130); Glucose 47 mg/dL (65-115); Osmolality Calculated 294 mOsm/kg (285-295); Sodium 137 mmol/L (136-145); Total Bilirubin 4.3 mg/dL (0.15-1.2); Total Protein 5.4 g/dL (6.6-8.7)
[2024-03-15 11:32] LABS: Anion Gap 28.3 (5-19); Lactic Sepsis W/Reflex 6.2 mmol/L (0.5-2.2); Potassium 4.3 mmol/L (3.5-5.1)
[2024-03-15 11:39] LABS: D Dimer >= 20.00 ug/mLFEU (0-0.59)
[2024-03-15 11:45] LABS: INR 5.84 (0.8-1.2)
[2024-03-15 11:46] LABS: HIV 1 & 2 Antibody Non-Reactive (Non-Reactiv); HIV 1 & 2 Antigen Non-Reactive (Non-Reactiv)
[2024-03-15] MEDS: piperacillin-tazobactam 3.375 GM in sodium chloride 0.9% (plus) 50 ML IV ×2 (11:48→23:11)
--- NOTE | 2024-03-15 11:56 | PC.NURSE ---
Notified Dr. Cochran of critical Lactic Acid and INR. Order given to restart heparin drip.
--- NOTE | 2024-03-15 12:05 | PC.NURSE ---
Heparin drip restarted at 30ml/hr at previous infusion rate. PTT ordered for 1800 per protocol.
--- NOTE | 2024-03-15 12:15 | PC.NURSE ---
Dr. Rader spoke with family via telenephrology ipad and updated on patient status and discussed poor prognosis. Family states that thy will talk with each other and make a decision if they want to proceed with CRRT or not. Updated Dr. Cochran.
[2024-03-15 12:54] LABS: Reflex Lactate Order REFLEX LACTIC ORDERD
[2024-03-15] MEDS: norepinephrine 4 MG/250 ML BAG 93.75 MG IV ×4 (13:14→21:33)
--- NOTE | 2024-03-15 13:14 | PC.NURSE ---
Referral of patient to MTS done. Spoke with
[2024-03-15 13:16] LABS: Alanine Aminotransferase 9073 U/L (0-33); Aspartate Amino Transferase > 18321 U/L (0-32)
--- NOTE | 2024-03-15 13:31 | PC.NURSE ---
Patients daughter Valarie stated that they have decided they do not want to pursue dialysis on this patient. Notified Dr. Cochran of this decision.
--- NOTE | 2024-03-15 13:36 | P.PN_ITS ---
<Statement entered by Kun Goff MD - 03/15/24 22:23> Patient was evaluated and cared for in conjunction with an advanced practice practitioner. I personally examined the patient and reviewed the chart and all pertinent data including imaging, telemetry, and laboratory results. I discussed the patient in detail with the advanced practice practitioner. Please see their note for complete H&P testing result and agreed upon plan of care for the patient. Subjective 2 Subjective: Patient was seen today. No changes other than creatinine has slightly got worse. Medications: Reviewed: Yes Vitals/I&O/Wt Last Vital Signs Temp 98.2 F 03/15/24 12:00 Pulse 108 H 03/15/24 12:15 Resp 18 03/15/24 13:16 BP 94/64 03/15/24 12:15 Pulse Ox 93 03/15/24 13:16 O2 Del Method Mechanical Ventilation 03/15/24 12:00 O2 Flow Rate 65 03/14/24 16:00 FiO2 75 03/15/24 13:16 03/14/24 03/15/24 03/15/24 22:59 06:59 14:59 Intake Total 2487.698 / 3173.171 985.067 / 4158.238 1791.408 / 1791.408 Output Total 65 / 65 Balance 2422.698 / 3108.171 985.067 / 4093.238 1791.408 / 1791.408 Weight last 48 hrs Weight 236 lb 15.951 oz Physical Exam 2 Narrative: General: Ventilated sedated Muskuloskeletal: Full ROM Lymphatic: no lymphedema noted Respiratory: Currently ventilated breath sounds clear throughout Cardio: No JVD, tachycardic regular rhythm, S1 S2 normal, no murmurs, peripheral pulses 2+ throughout GI: Normal to inspection, nondistended Extremities: Full ROM, normal, normal capillary refill, no cyanosis or edema Neuro: Sedated Skin: No rashes or lesions noted, no wounds Urinary Catheter Management: Yoder: Cath Placed During This Visit: yes Reason for Continuing Indwelling Catheter: Accurate Measurement of Urinary Output in Critically Ill Patients Urinary Catheter Date of Insertion: 03/13/24 Urinary Catheter Time of Insertion: 08:37 Data 03/15/24 11:00 03/15/24 11:00 Micro: Microbiology 03/14/24 12:35 Urine Culture - Preliminary Urine,Clean Catch 03/15/24 02:17 Occult Blood (FIT) - Final Stool Routine Collection 03/13/24 13:00 Blood Culture - Preliminary Blood NEGATIVE TO DATE 03/13/24 13:06 Blood Culture - Preliminary Blood NEGATIVE TO DATE A&P Assessment and plan (1) Shock: Plan Cardiogenic shock on pressor support Cardiorenal etiology for acute renal failure with severe oliguria 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 At this time, patient needs CRRT to improve renal function. Family holly snot want this at this time. Will continue current care. No s/s of fluid overload. Attestations 2 Medical Necessity Statement*: This is a critically ill patient with poor prognosis, she requires continuation of hospitalization underwent in the ICU. Coding Level of Care Code Acute Code for Chg Fwd Diagnoses Shock R57.9
--- NOTE | 2024-03-15 13:45 | PC.SOCIAL ---
Addendum entered by Mayte Tomlinson RN 03/15/24 14:36: IMM Updated and reviewed w/ patients daughter. Patient is currently intubated. Original Note: IMM Update pg 2 of IMM Updated and reviewed w/ patient. Copy provided and copy dated, initialed and placed in chart.
[2024-03-15 14:09] LABS: Ceruloplasmin 42 mg/dL (14-48)
[2024-03-15] MEDS: fentaNYL 1,000 MCG/100 ML BAG 10 MCG IV ×2 (14:12→23:47)
[2024-03-15] MEDS: EPINEPHrine 2.5 MG in sodium chloride 0.9% 250 ML 60.6 MG IV ×2 (14:14→19:10)
[2024-03-15 14:36] LABS: Lactic Acid level (Lactate) 8.5 mmol/L (0.5-2.2)
--- NOTE | 2024-03-15 14:47 | PC.NURSE ---
Dr. Cochran to bedside and spoke with family about goals of care. Decision made by family to no escalate care any further. Awaiting arrival of other family members and then plan to transition to comfort care.
--- NOTE | 2024-03-15 14:50 | PC.NURSE ---
Updated MTS on family's decision to not pursue CRRT and plan to withdraw from vent and pursue comfort care once all family has arrived.
--- NOTE | 2024-03-15 15:08 | PC.NURSE ---
Efe from MTS called for update. Admit and Current labs and coarse of patients stay discussed. Called back and states that patient is a medical rule out and call MTS with time of .
[2024-03-15] MEDS: glucagon 1 mg/mL KIT 1 mL IVP ×5 (15:25→21:29)
--- NOTE | 2024-03-15 15:35 | P.PN_ITS ---
Subjective 2 Subjective: Patient is being made comfort care. Intubated and not responding Vitals/I&O/Wt Last Vital Signs Temp 98.2 F 03/15/24 12:00 Pulse 105 H 03/15/24 14:30 Resp 18 03/15/24 14:49 BP 80/54 03/15/24 14:30 Pulse Ox 94 03/15/24 14:49 O2 Del Method Mechanical Ventilation 03/15/24 12:00 O2 Flow Rate 65 03/14/24 16:00 FiO2 80 03/15/24 14:49 03/15/24 03/15/24 03/15/24 06:59 14:59 22:59 Intake Total 985.067 / 4158.238 2068.184 / 2068.184 Balance 985.067 / 4093.238 2068.184 / 2068.184 Weight last 48 hrs Weight 236 lb 15.951 oz Physical Exam 2 Narrative: General : Patient is well developed , no acute distress, intubated, sedated Head : Normal cephalic, a-traumatic. Ears : Pinnae and external canal are normal. Hearing is normal. Eyes : PERRLA, Sclera and injection are normal. No conjunctival discharge. Nose : Mucous membranes are without erythema. Throat : buccal mucosa is normal, gums are without significant recession or hypertrophy. Lungs : Equal chest rise bilaterally, no use of accessory muscles, trachea is midline. Cor : Rate and rhythm are normal. Abdomen : Soft, distended, no grimace to palpation, no g/r/m Extremities : No edema, no cyanosis or clubbing, dorsalis pedis pulses are present bilaterally, non-tender to palpation of calves. Upper extremities are normal bilaterally. Back : non-tender to palpation, no CVA tenderness. Urinary Catheter Management: Yoder: Cath Placed During This Visit: yes Reason for Continuing Indwelling Catheter: Accurate Measurement of Urinary Output in Critically Ill Patients Urinary Catheter Date of Insertion: 03/13/24 Urinary Catheter Time of Insertion: 08:37 Data 03/15/24 11:00 03/15/24 11:00 Micro: Microbiology 03/14/24 12:35 Urine Culture - Preliminary Urine,Clean Catch 03/15/24 02:17 Occult Blood (FIT) - Final Stool Routine Collection 03/13/24 13:00 Blood Culture - Preliminary Blood NEGATIVE TO DATE 03/13/24 13:06 Blood Culture - Preliminary Blood NEGATIVE TO DATE A&P Assessment and plan (1) Multiorgan failure: (2) Amphetamine abuse: Plan Patient has a poor prognosis Patient is being made comfort care. General surgery will sign off. Please reconsult if the need arises Medical management per hospitalist Attestations 2 Medical Necessity Statement*: Per primary Coding Level of Care Code 17836 Diagnoses Multiorgan failure Amphetamine abuse F15.10
--- NOTE | 2024-03-15 17:25 | PC.NURSE ---
Blood glucose 25 on accu check, recheck id 24. Notified Dr. Cochran. Order given to check venous blood glucose and start D10 at 50ml/h.
[2024-03-15 17:31] LABS: Glucose Point of Care 24 mg/dL (70-110)
[2024-03-15 17:31] LABS: Glucose Point of Care 25 mg/dL (70-110)
[2024-03-15] MEDS: dextrose 10% 1,000 ML 50 ML IV (17:41)
[2024-03-15 18:07] LABS: Partial Thromboplastin Time 91.6 SECONDS (23.9-36.7)
[2024-03-15] MEDS: midazolam hcl 100 MG/100 ML BAG IV (18:07)
--- NOTE | 2024-03-15 18:09 | PM.PN ---
Subjective Subjective: Patient seen today morning in ICU with multiple family members at bedside. Currently she is on fentanyl of 100, Versed of 4, Levophed of 20, epi of 6, heparin drip. Patient's mean arterial pressure are maintained in mid 50s. Saturating 90 to 95% on 75% FiO2 with tidal volume of 460 and PEEP of 6. Minimal urine output. Patient opening her eyes with physical stimulus. As per nursing staff she did have 1 bloody bowel movement overnight. No repeat events since then. Vitals/I&O/Wt Last Vital Signs Temp 100.1 F H 03/15/24 16:00 Pulse 106 H 03/15/24 16:15 Resp 18 03/15/24 17:10 BP 80/48 03/15/24 16:15 Pulse Ox 94 03/15/24 17:10 O2 Del Method Mechanical Ventilation 03/15/24 16:00 O2 Flow Rate 65 03/14/24 16:00 FiO2 85 03/15/24 17:10 03/15/24 03/15/24 03/15/24 06:59 14:59 22:59 Intake Total 985.067 / 4158.238 2068.184 / 2068.184 371.75 / 2439.934 Output Total 20 / 20 Balance 985.067 / 4093.238 2068.184 / 2068.184 351.75 / 2419.934 Weight last 48 hrs Weight 107.5 kg Physical Exam Narrative: General: Intubated, sedated HEENT: PERRLA, pupils bilaterally equal and reactive Chest: Bronchial breath sounds with rhonchi all over lung kevin left more than right CVS: S1-S2 regular, no murmurs, tachycardia, no gallops, no rubs Abdomen: Soft, nontender, no organomegaly, bowel sounds present Neuro: Intubated, no focal deficit, no facial deformity Peripheries: Warm Urinary Catheter Management: Yoder: Cath Placed During This Visit: yes Reason for Continuing Indwelling Catheter: Accurate Measurement of Urinary Output in Critically Ill Patients Urinary Catheter Date of Insertion: 03/13/24 Urinary Catheter Time of Insertion: 08:37 Data 03/15/24 11:00 03/15/24 11:00 Micro: Microbiology 03/14/24 12:35 Urine Culture - Preliminary Urine,Clean Catch 03/15/24 02:17 Occult Blood (FIT) - Final Stool Routine Collection 03/13/24 13:00 Blood Culture - Preliminary Blood NEGATIVE TO DATE 03/13/24 13:06 Blood Culture - Preliminary Blood NEGATIVE TO DATE A&P Assessment and plan (1) Cardiac arrest: (2) Septic shock: (3) Multiorgan failure: (4) Respiratory failure: (5) Renal failure: (6) Liver failure, acute: (7) Atrial fibrillation with rapid ventricular response: (8) Non-STEMI (non-ST elevated myocardial infarction): (9) Hypoglycemia: (10) Thrombocytopenia: (11) Elevated d-dimer: (12) Supratherapeutic INR: (13) COPD (chronic obstructive pulmonary disease): Qualifiers: COPD type: chronic bronchitis Chronic bronchitis type: simple Qualified Code(s): J41.0 - Simple chronic bronchitis (14) Right-sided heart failure syndrome: Qualifiers: Heart failure chronicity: acute on chronic Qualified Code(s): I50.813 - Acute on chronic right heart failure (15) Venous (peripheral) insufficiency: (16) Amphetamine abuse: (17) Elevated lactic acid level: (18) Anxiety: (19) Goals of care, counseling/discussion: Plan Shock: Shock with multiorgan dysfunction progressing to failure, Continues to require pressors, 12 mcg norepinephrine, epinephrine was added overnight. He has not produced any urine. Progressively worsening transaminitis up to 3800 AST overnight, 2151 ALT overnight, status post PEA arrest early this morning, subsequently additional worsening transaminitis up to 9135 AST, 5049 ALT, INR yesterday with worsening up to 1.56, this morning up to 2.36. ABG this morning 7.09/43.4/159. PEA arrest around 5:30 in the morning with 10 minutes CPR, epinephrine. Subsequently in sinus rhythm. Repeat limited TTE had been obtained, pending. Lactic acid up to 20.3. Discussed with cardiology. Consideration of SINCERE, although suspicion for dissection is low. Concern for low output failure with progressive nonischemic cardiomyopathy. Further discussed liver dysfunction and concern for possible acute liver failure with gastroenterology at [facility]. She would not be a candidate for transplantation. Currently with multiorgan dysfunction with worsening ERICK, renal failure, anuric overnight, acidemic, has been started on bicarb drip. Requested nephrology consultation, discussed with staff registered nurse. Family had given consideration to CRRT. Further family on discussion and are in consensus in case of further cardiac arrest or in case of extubation, in the current situation not to repeat CPR and not to reintubate. Continue with life support currently, although also wanting to make sure she is not in discomfort or stress, wanting to make sure we continue with sedation. She has not had any significant Tylenol use, maybe once a week for headache. Ferritin elevated at 2130, but iron level is not elevated, saturation 25.7. Ceruloplasmin pending. Antimitochondrial, anti-smooth muscle antibodies pending. Noted early cirrhosis, fatty liver, remote history of alcohol but not currently. However, his per discussion with specialist and [facility] these are not likely contributing to acute liver failure. Currently this is likely combination substance use toxicity and shock liver. With developed leukocytosis but afebrile, continue. Antibiotic coverage with Zosyn. Follow-up blood cultures collected, discussed empirically treating with Zosyn for now. Does have liver cirrhosis, lower chance of SBP, only minimal ascites. Low-dose IV Dilaudid for pain. CHF: Acute systolic and diastolic decompensated CHF, has not produced urine despite Lasix drip. Acute encephalopathy: Acute metabolic encephalopathy, with multiple metabolic abnormalities with multiorgan dysfunction. Additionally substance intoxication versus withdrawal. Concern for low output failure, global hypoperfusion with progressively declining cardiac output. Was on Precedex yesterday, Dilaudid as needed for pain. Continue sedation today as per discussion with family. New onset A-fib with RVR: Has converted to sinus rhythm. Amiodarone was held transiently, cardiology further discussed with family amiodarone risks with liver disease. Risk of return into atrial fibrillation. Has continued on anticoagulation with switch to heparin drip, discussed with family risk of bleeding in setting of liver dysfunction. Monitor PTT. ERICK: Progressing to acute renal failure, creatinine up to 3.7, anuric overnight despite pressor support, despite Lasix drip. Discussed with staff registered nurse. Appreciate consultation. Family had given further consideration to CVVHD. Repeat chemistry is requested. Possible liver cirrhosis: Nodular liver appearance on CT. No current alcohol use but remote history. Additionally fatty liver infiltration. Minimal ascites. Without thrombocytopenia, minimal hyponatremia. Minimal transaminitis. Check hepatitis panel. Further cardiac assessment as above. Hypokalemia: Replenish. Recheck chemistry, magnesium. Mild hypomagnesemia: Recheck magnesium. Non-STEMI Continues on aspirin, Plavix, anticoagulation has been switched to heparin drip. Monitor for risk of bleeding as per discussion with family. No beta-carey due to hypotension. Recent echo on 03/04 echo was done recently which showed 45 to 50% EF grade 1 diastolic function Venous's dermatitis, psoriasis: No significant edema of lower extremity Plan for the day: 63-year-old female initially admitted with complaints of chest pressure found to be in A-fib with RVR with troponin elevation with concerns for non-ST elevation VT, found to have a decrease in EF down to 45% requiring amiodarone drip found to have urine drug screen positive for amphetamines with persistent confusion, worsening transaminitis along with abdominal pain during hospitalization who underwent PEA cardiac arrest on 03/14. Currently on mechanical ventilator for respiratory failure, to high-dose pressors with maxed out Levophed and high-dose epinephrine with concerns for multiorgan failure in setting of liver and renal failure. Keep mean artery pressure over 65. Can increase Levophed up to 25. Titrate epinephrine up. Keep oxygen saturation around 90%. Repeat chest x-ray, ABG. Lab work showing worsening thrombocytopenia today with episode of possible melena overnight. Repeat lactic acid, stat CBC, CMP, check DIC panel. Check cortisol level. Given worsening of thrombocytopenia discontinued heparin drip for a short while but given high D-dimer with no concerns for DIC given normal fibrinogen level was restarted later in the day. Continue to follow-up cultures. Patient developing metabolic alkalosis. Stop bicarb drip. Appreciate ABG results. Start on hydrocortisone 100 mg IV every 6 hour. Continue with IV Zosyn. Add home dose of Klonopin 3 times daily scheduled rather than as needed. Hold off on statins. Add albumin every 8 hourly. Continue to monitor blood sugars. Check venous blood glucose given concerns for peripheral vasoconstriction. Treated with glucagon. If not improving will switch to D10. Extensive goals of care discussion done in detail with patient's DPOA/daughter Valarie along with multiple other family members at bedside. We discussed unfortunately patient is in multiorgan failure with blood work and symptoms concerning for respiratory, cardiac, renal, hepatic failure. Discussed unfortunately patient has a very poor prognosis and given concerns for high pressor requirement, anuria there is a high likelihood of patient requiring CRRT and even with that it is possible that patient might not survive given her poor hemodynamics. Family had a further discussion among themselves and discussed the care in detail with staff registered nurse on-call. Given her poor hemodynamics family decided to hold off on dialysis. Had further goals of care discussion again discussing that unfortunately as of now patient is not improving with worsening of blood work, hemodynamics, persistent anuria even after maximum medical support patient is not improving and in fact is worsening. Options discussed were no escalation of care, no resuscitation in case of cardiac arrest versus transition to comfort care as of now which would mean discontinuing the pressors, sedated medication, terminal extubation to nasal cannula for comfort, concentrating more on patient comfort while nature takes its own course which would eventually mean her . PENNY would want to hold off on all of her other family members to be present before transitioning to comfort care and is agreeable to no escalation of care for now. Care discussed in detail with patient's nurse at bedside. Attestations Medical Necessity Statement*: Requires further hospitalization for management of shock along with multiorgan failure, renal failure, liver failure in a patient admitted for A-fib with RVR, post PEA arrest Critical Care Time: The high probability of a clinically significant, sudden or life threatening deterioration of the patient's [cardiac, pulmonary, renal, hepatic] system(s) required my full and direct attention, intervention and personal management. The critical care time is as shown. This time is in addition to time spent performing any reported procedures but includes the following: [x] Data and vital sign review and interpretation [x] Patient assessment, examination and intervention [x] Documentation [x] Medication orders and management Critical Care Time (min): 90 Coding Level of Care Code Critical Care >/= 30 minutes Critical care time (in minutes): 90 The high probability of a clinically significant, sudden or life threatening deterioration, as referenced in this documentation, required my full and direct attention, intervention and personal management. The critical care time shown is in addition to time spent performing any reported separately billable procedures and includes the following: [x] Data and vital sign review and interpretation [x] Patient assessment, examination and intervention [x] Medication orders and management [x] Patient/Family updates as able [x] Care Coordination and Documentation. Other Coding Information This patient has a high probability of clinically significant, sudden or life threatening deterioration of the patient's (neurological/pulmonary/cardiac/renal/ID/endocrine) systems required my full, direct attention, the highest level of physician preparedness for urgent intervention and personal management. I managed/supervised life or organ supporting interventions that required frequent physician assessment. I devoted my full attention in the ICU to the direct care of this patient for the period of time indicated above. Time I spent with family or surrogate(s) is included only if the patient was incapable of providing necessary information or participating in decision making. This time includes the following services provided: Telemetry review Mechanical Ventilation Hemodynamic interpretation, assessment and management Review and interpretation of CXR Review and interpretation of lab values Review and interpretation of microbiologic data and culture results Review of medications and administration Review and interpretation of Nutrition requirements and management Discussion of management with other consultants and services Clinical update to family members Diagnoses Cardiac arrest I46.9 Septic shock A41.9; R65.21 Multiorgan failure Respiratory failure J96.90 Renal failure N19 Liver failure, acute K72.00 Atrial fibrillation with rapid ventricular response I48.91 Non-STEMI (non-ST elevated myocardial infarction) I21.4 Hypoglycemia E16.2 Thrombocytopenia D69.6 Elevated d-dimer R79.89 Supratherapeutic INR R79.1 Simple chronic bronchitis J41.0 COPD type: chronic bronchitis Chronic bronchitis type: simple Acute on chronic right-sided heart failure I50.813 Heart failure chronicity: acute on chronic Venous (peripheral) insufficiency I87.2 Amphetamine abuse F15.10 Elevated lactic acid level R79.89 Anxiety F41.9 Goals of care, counseling/discussion Z71.89
[2024-03-15 18:14] LABS: Glucose 16 mg/dL (65-115)
--- NOTE | 2024-03-15 18:27 | PC.NURSE ---
Notified Dr. Cochran of blood glucose of 16 on venous blood. Order given for glucagon.
[2024-03-15 18:48] LABS: Glucose Point of Care 65 mg/dL (70-110)
[2024-03-15 18:48] LABS: Glucose Point of Care 39 mg/dL (70-110)
[2024-03-15 19:57] LABS: Glucose Point of Care 41 mg/dL (70-110)
[2024-03-15 20:33] LABS: Glucose Point of Care 49 mg/dL (70-110)
[2024-03-15 21:05] LABS: Glucose Point of Care 58 mg/dL (70-110)
[2024-03-15 21:21] LABS: Glucose Point of Care 46 mg/dL (70-110)
[2024-03-15 22:42] LABS: Glucose Point of Care 73 mg/dL (70-110)
[2024-03-15] MEDS: EPINEPHrine 5 MG in sodium chloride 0.9% 500 ML 60.6 MG IV (23:11)
[2024-03-15 23:33] LABS: Glucose Point of Care 80 mg/dL (70-110)
[2024-03-15 23:33] LABS: Glucose Point of Care 96 mg/dL (70-110)
[2024-03-16] VITALS (51 sets, daily range): BP systolic 45–136; BP diastolic 32–86; PULSE 0–174; RESP 18–24; TEMP 37.4–37.5; O2SAT 87–96; BMI 40.1
[2024-03-16] MEDS: heparin drip 25,000 UNIT/500 ML PREMIX 26 UNIT IV (00:24)
[2024-03-16] MEDS: norepinephrine 4 MG/250 ML BAG 93.75 MG IV ×3 (00:24→05:20)
[2024-03-16] MEDS: chlorhexidine gluconate 4% Btl 118 mL 1 APPLIC TOPICAL (00:46)
[2024-03-16] MEDS: lanolin oint 7 gm 1 APPLIC TOPICAL (00:46)
--- NOTE | 2024-03-16 01:47 | PC.NURSE ---
Hypoglycemia: Patient had several low blood sugars early in the shift that required administration of glucagon, orders given by Dr. Nieto. Dr. Nieto then gave telephone orders to recheck blood glucose every 2 hours and to administer glucagon if blood sugar is below 75, also gave orders to increase D10 drip to 100mL/hr.
[2024-03-16] MEDS: hydrocortisone 100 mg/2 mL SDV IVP ×2 (03:30→09:49)
[2024-03-16] MEDS: albumin 25 G/100 ML BAG 60 G IV ×2 (03:30→10:13)
[2024-03-16 04:24] LABS: Glucose Point of Care 158 mg/dL (70-110)
--- NOTE | 2024-03-16 04:24 | PC.NURSE ---
D10 gtt: Patient's blood sugar trended up with increase of D10 drip, Dr. Nieto was notified and gave orders to decrease drip to 75mL/hr.
[2024-03-16 04:34] LABS: Hematocrit 38.5 % (36-47); Mean Corpuscular HGB Conc 32.7 g/dL (30-55); Mean Corpuscular Volume 97.7 fl (85-98); Mean Platelet Volume 11.4 fL (7.4-10.4); Platelet Count 87 10^3/cmm (157-399); Red Blood Count 3.94 10^6/uL (3.85-5.65); White Blood Count 20.83 10^3/uL (3.29-11.43)
[2024-03-16 04:54] LABS: Partial Thromboplastin Time 107.1 SECONDS (23.9-36.7)
[2024-03-16 05:08] LABS: Absolute Neutrophil 17.7 10^3/cmm (1.4-6.5); Absolute Segmented Neutrophil 10.2 10/cmm (1.6-7.1); Band Neutrophils Absolute 7.5 10^3/cmm (0.0-1.2); Eosinophils 0 %; Lymphocytes 10 %; Monocytes Absolute 0.6 10^3/cmm (0.1-0.6); Platelet Estimate Decreased (Normal); Segmented Neutrophils 49 %; Slide Review Slide Review Perform; Total Cells Counted 100 (0-100)
[2024-03-16 05:09] LABS: Toxic Vacuolation TRACE
[2024-03-16] MEDS: dextrose 10% 1,000 ML 75 ML IV (05:27)
[2024-03-16 05:29] LABS: Albumin Level 3.9 g/dL (3.5-5.2); Alkaline Phosphatase 200 U/L (35-105); Blood Urea Nitrogen 59 mg/dL (8-23); Carbon Dioxide 19 mmol/L (22-29); Chloride 89 mmol/L (98-107); Globulin 1.6 g/dL (1.3-4.6); Glomerular Filtration Rate 6.9 mL/min (90-130); Glucose 159 mg/dL (65-115); Osmolality Calculated 304 mOsm/kg (285-295); Sodium 137 mmol/L (136-145); Total Bilirubin 6.4 mg/dL (0.15-1.2); Total Protein 5.5 g/dL (6.6-8.7)
[2024-03-16 05:32] LABS: Calcium 5.6 mg/dL (8.5-10.5); Creatinine Clr Calc Pharmacy 11.3225
[2024-03-16 05:41] LABS: Alanine Aminotransferase 6197 U/L (0-33)
[2024-03-16 05:42] LABS: Aspartate Amino Transferase > 9924 U/L (0-32)
--- NOTE | 2024-03-16 07:51 | PM.PN ---
Subjective Subjective: Patient seen and examined. Patient currently on 2 pressors of epinephrine and Levophed. Patient ventilated and sedated. Patient requiring 100% FiO2. Patient is minimally responsive. Medications: Reviewed: Yes Medication Review Details: Current Medications Acetaminophen (Acetaminophen 500 Mg Tablet) 500 mg PO Q4H PRN PRN Reason: fever Albuterol/Ipratropium (Ipratropium-Albuterol 3 Ml Neb) 3 ml INHALATION Q6H PRN PRN Reason: SHORTNESS OF BREATH Aspirin (Aspirin 81 Mg Ec Tablet) 81 mg PO DAILY [facility] Last Admin: 03/15/24 09:19 Dose: 81 mg Chlorhexidine Gluconate (Chlorhexidine Gluconate 4% Btl 118 Ml) 1 applic TOPICAL Q24H SKINNY Last Admin: 03/16/24 00:46 Dose: 1 applic Clonazepam (Clonazepam 1 Mg Tablet) 1 mg PO TID SKINNY Last Admin: 03/15/24 20:18 Dose: 1 mg Clopidogrel Bisulfate (Clopidogrel 75 Mg Tablet) 75 mg PO DAILY [facility] Last Admin: 03/15/24 09:19 Dose: 75 mg Furosemide (Furosemide 10 Mg/Ml Sdv 2ml) 20 mg IVP DAILY [facility] Last Admin: 03/13/24 07:32 Dose: 20 mg Heparin Sodium (Porcine) (Heparin 5,000 Unit/Ml Inj 1 Ml) 0 unit IVP PRN PRN; Protocol PRN Reason: Heparin Weight Based Protocol -Subsequent Bolus Last Admin: 03/15/24 01:35 Dose: 2,000 unit Hydrocortisone Sodium Succinate (Hydrocortisone 100 Mg/2 Ml Sdv) 100 mg IVP Q6H [facility] Last Admin: 03/16/24 03:30 Dose: 100 mg Piperacillin Sod/Tazobactam (Sod 3.375 gm/ Sodium Chloride) 50 mls @ 12.5 mls/hr IV Q12H [facility]; Protocol Last Infusion: 03/16/24 04:27 Dose: Infused Norepinephrine Bitartrate (Levophed) 4 mg in 250 mls @ 0 mls/hr IV .Q0M [facility]; Protocol Last Titration: 03/16/24 07:33 Dose: 23 mcg/min, 86.25 mls/hr Epinephrine HCl 2.5 mg/ Sodium (Chloride) 252.5 mls @ 0 mls/hr IV .Q0M [facility]; Protocol Last Titration: 03/15/24 23:11 Dose: Infused Heparin Sodium/Sodium Chloride (Heparin Drip) 25,000 unit in 500 mls @ 0 mls/hr IV CONT SKINNY; Protocol Last Titration: 03/16/24 05:03 Dose: 10.04 unit/kg/hr, 20 mls/hr Fentanyl (Sublimaze) 1,000 mcg in 100 mls @ 0 mls/hr IV .Q0M [facility]; Protocol Last Titration: 03/16/24 02:25 Dose: 75 mcg/hr, 7.5 mls/hr Midazolam HCl (Versed) 100 mg in 100 mls @ 0 mls/hr IV .Q0M [facility]; Protocol Last Titration: 03/16/24 00:55 Dose: 1 mg/hr, 1 mls/hr Albumin Human (Albumin) 25 g in 100 mls @ 60 mls/hr IV Q8H [facility] Last Infusion: 03/16/24 05:28 Dose: Infused Dextrose (D10w) 1,000 mls @ 50 mls/hr IV .Q20H [facility] Last Admin: 03/16/24 05:27 Dose: 75 mls/hr Epinephrine HCl 5 mg/ Sodium (Chloride) 505 mls @ 0 mls/hr IV .Q0M [facility]; Protocol Last Admin: 03/15/24 23:11 Dose: 10 mcg/min, 60.6 mls/hr Lanolin (Lanolin Oint 7 Gm) 1 applic TOPICAL PRN PRN PRN Reason: DRYNESS Last Admin: 03/16/24 00:46 Dose: 1 applic Ondansetron HCl (Ondansetron 2 Mg/Ml Sdv 2 Ml) 4 mg IVP Q6H PRN PRN Reason: NAUSEA AND VOMITING Last Admin: 03/14/24 00:47 Dose: 4 mg Vitals/I&O/Wt Last Vital Signs Temp 99.3 F 03/16/24 04:30 Pulse 100 03/16/24 06:15 Resp 23 H 03/16/24 07:47 BP 107/66 03/16/24 06:15 Pulse Ox 89 L 03/16/24 07:47 O2 Del Method Mechanical Ventilation 03/16/24 04:30 O2 Flow Rate 65 03/14/24 16:00 FiO2 100 03/16/24 07:47 03/15/24 03/16/24 03/16/24 22:59 06:59 14:59 Intake Total 1971.438 / 4039.622 2196.978 / 6236.600 207.813 / 207.813 Output Total 20 0 / 20 Balance 1951.438 / 4019.622 2196.978 / 6216.600 207.813 / 207.813 Weight last 48 hrs Weight 109.514 kg Weight 107.5 kg Physical Exam Narrative: Patient is intubated, FiO2 100%, on Levophed and epinephrine. She is much less responsive than yesterday HEENT is normocephalic atraumatic. Positive icteric. Neck is supple Lungs have good air movement bilaterally Heart is regular with systolic murmur. Abdomen is soft positive bowel sounds. Extremities have poor pulses and 1+ leg edema. Neuro she is sedated , minimally responsive Skin is yellow. Urinary Catheter Management: Yoder: Cath Placed During This Visit: yes Reason for Continuing Indwelling Catheter: Accurate Measurement of Urinary Output in Critically Ill Patients Urinary Catheter Date of Insertion: 03/13/24 Urinary Catheter Time of Insertion: 08:37 Data 03/16/24 04:20 03/16/24 04:20 Micro: Microbiology 03/14/24 12:35 Urine Culture - Preliminary Urine,Clean Catch 03/15/24 02:17 Occult Blood (FIT) - Final Stool Routine Collection A&P Assessment and plan (1) ERICK (acute kidney injury): 63-year-old lady with history of amphetamine use, patient had heart failure mildly reduced EF of 40%. Patient presented with non-ST elevation NH, atrial fibrillation with rapid ventricular response rate. Question of infection. Patient abdominal pain and a CTA was done on March 13, 2024 at 9 AM. 1. Acute kidney injury-baseline creatinine in February 2024 was 1.3 mg/dL. Patient's ERICK is likely ATN in the setting of moderate to high-grade narrowing involving the origin of a single left renal artery. The patient has failed diuresis. -I discussed with the family multiple times that she has multiorgan failure and that dialysis would be high risk. Family does not want dialysis at this time. 2. status post cardiac arrest on 03/14/24. 3. VDRF 4. cardiogenic shock as per Dr Goff 5. Shocked liver. inr 5.8 yesterday, ast/ alt improved to greater than 9924 and 6197. Bilirubin 6.4. 6. phos of 11 from erick 7. Increased anion gap metabolic acidosis from lactic acidosis from cardiac arrest. She also has increased anion gap metabolic acidosis from renal failure 8. Positive amphetamines in urine marijuana Agree with comfort care as prognosis is very poor. Antibiotics as per medicine. Can consider bicarbonate drip if warranted. Seen and examined using audiovisual equipment with the aid of a nurse. Discussed in detail with the nurse and with her family. Plan See above. Prognosis is very poor. Attestations Medical Necessity Statement*: Multiorgan failure on 2 pressors and ventilator with 100% FiO2 Time Spent in Patient Care: 16 - 35 minutes (>than 50% of time spent in counselling and/or direct pt care on unit). Coding Level of Care Code Acute Code for Fatimah Devine Diagnoses ERICK (acute kidney injury) N17.9
[2024-03-16 07:56] LABS: Glucose Point of Care 116 mg/dL (70-110)
[2024-03-16 07:56] LABS: Glucose Point of Care 168 mg/dL (70-110)
[2024-03-16] MEDS: norepinephrine 4 MG/250 ML BAG 86.25 MG IV (07:58)
[2024-03-16] MEDS: EPINEPHrine 5 MG in sodium chloride 0.9% 500 ML 60.6 MG IV (08:05)
--- NOTE | 2024-03-16 08:52 | PC.NURSE ---
Patient started to have bloody secretions run out the side of their mouth during shift change. Patient was put on intermittent suction and 300 ml of bloody secretion was put out by the patient. Dr. Cochran was contacted and he ordered to get a CBC from the patient and a DIC pannel. He also ordered to stop the heparin drip.
--- NOTE | 2024-03-16 09:33 | PC.NURSE ---
Patient became tachycardic at [address] Cochran came into the room and no new orders were given.
[2024-03-16 09:35] LABS: Reflex FDPQ test REFLEX FDP QUEST TES
--- NOTE | 2024-03-16 09:41 | PC.NURSE ---
Charge nurse and Doctor were at bedside explaining to the family about the patient's critical status and what we are doing for the patient and the ineffectiveness of the treatment. Patient's family unable to make a decision about how to progress in the care of the patient at this time.
[2024-03-16 09:43] LABS: Basophils # 0.1 10^3/uL (0.0-0.1); Basophils % 0.5 %; Eosinophils # 0.6 10^3/uL (0.0-0.8); Eosinophils % 3.4 %; Hematocrit 29.1 % (36-47); Lymphocytes # 0.9 10^3/uL (0.8-4.8); Lymphocytes % 5.6 %; Mean Corpuscular Hemoglobin 30.9 pg (27-33); Mean Corpuscular Volume 96.7 fl (85-98); Mean Platelet Volume 11.2 fL (7.4-10.4); Monocytes # 0.4 10^3/uL (0.2-0.9); Monocytes % 2.2 %; Neutrophils # 14.55 10^3/uL (1.8-7.7); Neutrophils % 87.3 %; Nucleated Red Blood Cells # 0.2 /100WBC; Nucleated Red Blood Cells % 0.9 %; Platelet Count 61 10^3/cmm (157-399); Red Blood Count 3.01 10^6/uL (3.85-5.65); White Blood Count 16.67 10^3/uL (3.29-11.43)
[2024-03-16] MEDS: clopidogrel 75 mg Tablet PO (09:49)
[2024-03-16] MEDS: FUROsemide 10 mg/mL SDV 10mL 100 MG IVP (09:49)
[2024-03-16] MEDS: CLONazepam 1 mg Tablet PO (09:49)
[2024-03-16 10:02] LABS: Fibrinogen 189 mg/dL (174-498)
[2024-03-16 10:04] LABS: Partial Thromboplastin Time 100.2 SECONDS (23.9-36.7)
[2024-03-16 10:12] LABS: D Dimer >= 20.00 ug/mLFEU (0-0.59)
[2024-03-16] MEDS: calcium gluconate 0.1 gm/mL 10% SDV 10mL 2 GM IVP (10:12)
[2024-03-16 10:16] LABS: Slide Review Slide Review Perform
[2024-03-16 10:20] LABS: INR 8.16 (0.8-1.2)
[2024-03-16 10:48] LABS: Glucose Point of Care 201 mg/dL (70-110)
--- NOTE | 2024-03-16 11:10 | PC.NURSE ---
Patient's daughter made the decision to change the patient's status to comfort care. Doctor Dimas was made aware and he put in orders to extubate and to discontinue their medications along with comfort care orders. Patient was successfully extubated at 1105.
[2024-03-16] MEDS: morphine 4 mg/mL SDV 1 mL IVP (11:19)
--- NOTE | 2024-03-16 11:56 | PC.NURSE ---
Addendum entered by Emerald Jimenez RN 03/16/24 12:05: Verified TOD Original Note: Patient's monitor showed asystole. This nurse along with PIA Corbin auscultated for a breath sound for 1 minute and a heart beat for 1 minute but did not hear anything for either. No pulses were able to be palpated either. Doctor Dimas was notified. Time of was 1145.
--- NOTE | 2024-03-16 12:01 | PC.NURSE ---
Addendum entered by Papo Rosales RN 03/16/24 12:52: Both [facility] and [facility] have released the patient. [facility] was contacted as the that the family has chosen. [phone] Original Note: Ga from [facility] was notified of the patient's passing. Reference number is [id number]. Hector from [facility] called back and stated that the patient was not a candidate for organ donation.
--- NOTE | 2024-03-16 13:08 | PC.NURSE ---
This nurse along with PIA Newell waisted: Midazolam- 74.284 mls Fentanyl- 9.334
--- NOTE | 2024-03-16 13:49 | PM.DDS ---
Discharge Providers DDS Date of Admission: 03/12/24 23:35 Date Summary Completed: 03/16/24 Attending Provider at Admission: Kun Nieto MD Time of : 11:43 Attending Provider at Discharge: Scott Cochran MD Consults: Cardiology: Dr. Goff Telemetry nephrology Primary Care Provider: Justin Fajardo MD DS Diagnoses Hospital Diagnoses (1) ERICK (acute kidney injury): Reason for Visit Reason for Visit chest pain, SOB, dizzy Brief History: History as per HPI: Ana Alonso is a 63 year old female with past medical history of CHF, hypertension, presented to hospital with chief complaint of chest pain. Patient does not have any history of coronary disease or CO. Stating that her pain started around 5 PM when she was asleep, she described her pain as pressure-like sensation nonradiating, not associated with nausea vomiting but associated shortness of breath. It lasted until she came in the ER and received medications. She was diagnosed with A-fib RVR heart rate 185 she was put on Cardizem drip which improved her heart rate and chest pain resolved she was diagnosed with non-STEMI with significantly high troponin. At the time of my evaluation she is chest pain-free resting comfortably laying supine. She also has ERICK with high BNP Summary Date and Time of Date of : 03/16/24 Time of : 11:43 Summary Summary: Patient was into the hospital further evaluation and management of A-fib with RVR with concerns for now [id number] CO with mild elevation of troponins. She was started on Cardizem drip but her heart rate was difficult to control and hence was transition over to amiodarone. There was concern for sepsis on admission for which she was started on empiric antibiotics. Given concerns for mild congestive heart failure she was IV diuresis. Echocardiogram was done which sh EF of 25 to 30% with global LV hypokinesia, severely decreased EF with moderately dilated LV cavity. Currently protein came back positive for amphetamines. Patient was developing mild liver dysfunction during hospitalization. Patient was complaining of abdominal pain and discomfort. There was concern for developing cardiogenic shock for which she was transitioned to ICU and started on vasopressors along with amnio drip. Given concerns for possible shock in setting of non-ST elevation CO she was started on heparin drip. CT of the pelvis was done which was concerning for liver cirrhosis along with left renal artery stenosis. On 03/14 patient had PEA arrest for which she had ACLS protocol chest compression x 3 and she achieved ROSC. She was mechanically ventilated. Postevent patient developed multiorgan failure with renal failure, liver failure, cardiopulmonary failure requiring high vasopressors including maximum Levophed and epinephrine. Patient remained anuric for which nephrology was consulted with concerns for possible hemodialysis versus CRRT. Patient continued to remain critically sick and was developing early DIC with episodes of hematemesis and melena. Extensive goals of care discussion done in detail with patient's DPOA/daughter Valarie along with multiple other family members at bedside. We discussed unfortunately patient is in multiorgan failure with blood work and symptoms concerning for respiratory, cardiac, renal, hepatic failure. Discussed unfortunately patient has a very poor prognosis and given concerns for high pressor requirement, anuria there is a high likelihood of patient requiring CRRT and even with that it is possible that patient might not survive given her poor hemodynamics. Family had a further discussion among themselves and discussed the care in detail with learning technologist on-call. Given her poor hemodynamics family decided to hold off on dialysis. Had further goals of care discussion again discussing that unfortunately as of now patient is not improving with worsening of blood work, hemodynamics, persistent anuria even after maximum medical support patient is not improving and in fact is worsening. Options discussed were no escalation of care, no resuscitation in case of cardiac arrest versus transition to comfort care as of now which would mean discontinuing the pressors, sedated medication, terminal extubation to nasal cannula for comfort, concentrating more on patient comfort while nature takes its own course which would eventually mean her . PENNY would want to hold off on all of her other family members to be present before transitioning to comfort care and is agreeable to no escalation of care for now. Patient continued to have episodes of melena and hematemesis overnight after which heparin drip was discontinued. She continued to remain on maximum 2 vasopressors along with 100% FiO2 on mechanical ventilator. She remained anuric. Further goals of care discussions were done on 03/16 with multiple family members. Family decided to transition patient to comfort care. Eventually patient passed a Giurgius on 03/16 with family at bedside at 1143 and comfortable state. Additional Data Confirmation of as documented by pronouncing clinician: no pulse and no heart sounds Family: at bedside Additional persons at bedside: nursing staff Attending/PCP notified?: I am attending Was code activated?: No Autopsy requested?: No Advance directives?: No Hospice patient?: No Discharge Plan Discharge Patient Disposition: Condition: Stable Prescriptions: Continued cyclobenzaprine 10 mg tablet See Rx Instructions .ROUTE .COMPLEX Qty: 75 5RF Dose Instruction: TAKE 1-3 TABLETS BY MOUTH DAILY NEEDED Rx Instructions: TAKE 1-3 TABLETS BY MOUTH DAILY NEEDED metolazone 5 mg tablet 5 mg PO DAILY Qty: 14 0RF triamcinolone acetonide 0.1 % cream See Rx Instructions .ROUTE .COMPLEX Qty: 90 3RF Dose Instruction: APPLY TO AFFECTED AREA TWICE A DAY TO PSORIASIS PATCHES Rx Instructions: APPLY TO AFFECTED AREA TWICE A DAY TO PSORIASIS PATCHES clonazepam 1 mg tablet 1 mg PO TID PRN (Reason: anxiety) 30 Days Qty: 75 3RF albuterol sulfate 90 mcg/actuation HFA aerosol inhaler See Rx Instructions .ROUTE .COMPLEX Qty: 8.5 0RF Dose Instruction: INHALE TWO PUFFS BY MOUTH FOUR TIMES DAILY Rx Instructions: INHALE TWO PUFFS BY MOUTH FOUR TIMES DAILY furosemide 40 mg tablet See Rx Instructions .ROUTE .COMPLEX Qty: 90 3RF Dose Instruction: TAKE ONE TABLET BY MOUTH DAILY AT 9AM FOR SWELLING / BREATHING Rx Instructions: TAKE ONE TABLET BY MOUTH DAILY AT 9AM FOR SWELLING / BREATHING potassium chloride 10 mEq tablet extended release 10 meq PO BID Qty: 180 1RF Rx Instructions: TAKE ONE TABLET BY MOUTH TWICE DAILY @ 9AM & 5PM omeprazole 40 mg capsule,delayed release(DR/EC) 40 mg PO DAILY Referrals: Justin Fajardo MD [Primary Care Provider] - Patient Instructions: Opioid Safety Probable Cause of Probable cause of : Renal failure due to vascular disorder DS Attestations Time Spent in /Discharge Care*: greater than 30 min Quality - AMI: AMI present?: No Clinical Trial Participant: No Contraindication for Aspirin: Drug therapy discontinued Quality - Stroke: CVA present?: No Quality - VTE: VTE present?: No Coding Level of Care Code Critical Care >/= 30 minutes Critical care time (in minutes): 70 The high probability of a clinically significant, sudden or life threatening deterioration, as referenced in this documentation, required my full and direct attention, intervention and personal management. The critical care time shown is in addition to time spent performing any reported separately billable procedures and includes the following: [x] Data and vital sign review and interpretation [x] Patient assessment, examination and intervention [x] Medication orders and management [x] Patient/Family updates as able [x] Care Coordination and Documentation. Other Coding Information This patient has a high probability of clinically significant, sudden or life threatening deterioration of the patient's (neurological/pulmonary/cardiac/renal/ID/endocrine) systems required my full, direct attention, the highest level of physician preparedness for urgent intervention and personal management. I managed/supervised life or organ supporting interventions that required frequent physician assessment. I devoted my full attention in the ICU to the direct care of this patient for the period of time indicated above. Time I spent with family or surrogate(s) is included only if the patient was incapable of providing necessary information or participating in decision making. This time includes the following services provided: Telemetry review Mechanical Ventilation Hemodynamic interpretation, assessment and management Review and interpretation of CXR Review and interpretation of lab values Review and interpretation of microbiologic data and culture results Review of medications and administration Review and interpretation of Nutrition requirements and management Discussion of management with other consultants and services Clinical update to family members Diagnoses ERICK (acute kidney injury) N17.9
--- NOTE | 2024-03-16 14:29 | PC.NURSE ---
[facility] came and picked up the patient at 1430.
--- NOTE | 2024-03-16 19:42 | P.PN_ITS ---
<Statement entered by Kun Goff MD - 03/17/24 08:48> Patient was evaluated and cared for in conjunction with an advanced practice practitioner. I personally examined the patient and reviewed the chart and all pertinent data including imaging, telemetry, and laboratory results. I discussed the patient in detail with the advanced practice practitioner. Please see their note for complete H&P testing result and agreed upon plan of care for the patient. 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 Worsening of renal failure along with hepatic most likely secondary to shock. Patient and family not interested in pursuing dialysis. Nephrology has spoken to them as well. I had few meetings with different family members at this point they all are in agreement and would like to make patient complete comfort care. We will sign off from now. GENERAL: Patient remains sedated intubated, today she is tachycardic HEART: Regular S1 and S2. No murmur, rub or gallop. LUNGS: Decreased breath sounds but clear bilaterally. CENTRAL NERVOUS SYSTEM: Cannot assess because patient is sedated EXTREMITIES: Lower extremities with out edema bilaterally. 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 No new changes. Family was present and talking about potential for comfort care. Medications: Reviewed: Yes Vitals/I&O/Wt Last Vital Signs Temp 99.5 F 03/16/24 08:45 Pulse 0 L 03/16/24 11:45 Resp 18 03/16/24 09:31 BP 45/32 03/16/24 11:15 Pulse Ox 96 03/16/24 11:00 O2 Del Method Mechanical Ventilation 03/16/24 11:00 O2 Flow Rate 65 03/14/24 16:00 FiO2 100 03/16/24 11:00 03/16/24 03/16/24 03/16/24 06:59 14:59 22:59 Intake Total 2196.978 / 6236.600 1613.888 / 1613.888 Output Total 0 / 20 Balance 2196.978 / 6216.600 1613.888 / 1613.888 Weight last 48 hrs Weight 241 lb 7 oz Weight 236 lb 15.951 oz Physical Exam 2 Narrative: General: Ventilated sedated Muskuloskeletal: Full ROM Lymphatic: no lymphedema noted Respiratory: Currently ventilated breath sounds clear throughout Cardio: No JVD, tachycardic regular rhythm, S1 S2 normal, no murmurs, peripheral pulses 2+ throughout GI: Normal to inspection, nondistended Extremities: Full ROM, normal, normal capillary refill, no cyanosis or edema Neuro: Sedated Skin: No rashes or lesions noted, no wounds Urinary Catheter Management: Yoder: Cath Placed During This Visit: yes Reason for Continuing Indwelling Catheter: Accurate Measurement of Urinary Output in Critically Ill Patients Urinary Catheter Date of Insertion: 03/13/24 Urinary Catheter Time of Insertion: 08:37 Data 03/16/24 09:32 03/16/24 04:20 Micro: Microbiology 03/14/24 12:35 Urine Culture - Final Urine,Clean Catch A&P Assessment and plan (1) Shock: Plan Cardiogenic shock on pressor support Cardiorenal etiology for acute renal failure with severe oliguria 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 At this time, they are considering comfort care. Attestations 2 Medical Necessity Statement*: deferred to primary Coding Level of Care Code Acute Code for Chg Fwd Diagnoses Shock R57.9
[2024-03-18 00:19] LABS: Fibrinogen Degradation Product 80 mcg/mL (LESS THAN 5)
[2024-03-18 00:19] LABS: Smooth Muscle Ab Screen POSITIVE (NEGATIVE)
== END 2024-03-16 14:28 | disposition expired ==
LOC: ER 23:33 → CSU 03-13 00:32 → ICU 03-13 09:36
PROVIDERS: Internal Medicine; Internal Medicine Nephrology; Admitting Provider Internal Medicine; Emergency Provider Emergency Medicine; PCP Family Medicine; Visit Provider Student in an Organized Health Care Education/Training Program
DX: I11.0 Hypertensive heart disease with heart failure (principal); G92.8 Other toxic encephalopathy; I21.4 Non-ST elevation (NSTEMI) myocardial infarction; I50.23 Acute on chronic systolic (congestive) heart failure; R65.21 Severe sepsis with septic shock; J96.90 Respiratory failure, unspecified, unspecified whether with hypoxia or hypercapnia; K72.00 Acute and subacute hepatic failure without coma; N17.9 Acute kidney failure, unspecified; Z68.41 Body mass index [BMI] 40.0-44.9, adult; K92.1 Melena; E87.20 Acidosis, unspecified; R18.8 Other ascites; I48.91 Unspecified atrial fibrillation; F41.9 Anxiety disorder, unspecified; J41.0 Simple chronic bronchitis; F32.A Depression, unspecified; R57.0 Cardiogenic shock; L40.9 Psoriasis, unspecified; K21.9 Gastro-esophageal reflux disease without esophagitis; Z90.710 Acquired absence of both cervix and uterus; Z90.49 Acquired absence of other specified parts of digestive tract; E66.01 Morbid (severe) obesity due to excess calories; I87.2 Venous insufficiency (chronic) (peripheral); E87.6 Hypokalemia; E83.42 Hypomagnesemia; R79.1 Abnormal coagulation profile; D69.6 Thrombocytopenia, unspecified; E16.2 Hypoglycemia, unspecified; T43.621A Poisoning by amphetamines, accidental (unintentional), initial encounter; I42.7 Cardiomyopathy due to drug and external agent; I46.9 Cardiac arrest, cause unspecified; F17.200 Nicotine dependence, unspecified, uncomplicated; K74.60 Unspecified cirrhosis of liver; I70.1 Atherosclerosis of renal artery; F15.10 Other stimulant abuse, uncomplicated; F12.90 Cannabis use, unspecified, uncomplicated; R00.0 Tachycardia, unspecified
CPT/HCPCS: 36415; 36416; 36573; 36592; 36600; 51702; 71045; 71250; 74174; 76705; 80048; 80051; 80053; 80069; 80074; 80306; 80307; 81001; 82044; 82274; 82330; 82390; 82436; 82533; 82550; 82570; 82728; 82803; 82805; 82947; 82962; 83516; 83540; 83550; 83605; 83615; 83690; 83735; 83880; 84100; 84133; 84156; 84300; 84443; 84484; 84550; 85007; 85025; 85362; 85378; 85384; 85610; 85730; 86140; 86705; 86706; 86803; 87040; 87086; 87340; 87806; 93005; 93308; 94002; 94003; 94799; 96365; 96366; 96367; 96372; 96374; 96375; 96376; 99285; A4222; J0171; J0283; J0612; J1160; J1171; J1610; J1644; J1650; J1720; J1940; J2060; J2250; J2270; J2405; J2543; J3010; J3475; J3480; J3490; J7030; J7040; J7050; J7070; P9046; Q3014